=== PATIENT | male | born 1950 | race Caucasian/White ===

== ENCOUNTER 2020-08-08 00:40 | Outpatient (CLI) | payer MEDICARE, SELFPAY ==
[2020-08-08 17:41] LABS: SARS-CoV-2 RNA PCR Negative
== END 2020-08-08 00:41 | disposition home or self-care (01) ==
LOC: ANHCOVIDDT 00:41
PROVIDERS: Visit Provider Internal Medicine Gastroenterology
DX: Z01.812 Encounter for preprocedural laboratory examination (principal); Z20.828 Contact with and (suspected) exposure to other viral communicable diseases
CPT/HCPCS: 87635; C9803; U0003

== ENCOUNTER 2020-08-10 01:34 | Day surgery (SDC) | payer MEDICARE, SELFPAY ==
[2020-08-03 13:53] VITALS: BMI 40.1
[2020-08-10 07:00] VITALS: BP 130/59; PULSE 63; RESP 20; TEMP 36.2; O2SAT 98
[2020-08-10] MEDS: LACTATED RINGERS 1,000 ML 150 ML IV CONT (07:10)
[2020-08-10 07:18] LABS: Glucose Point of Care 98 (65-105)
--- NOTE | 2020-08-10 07:27 | PM.HPGS ---
History of Present Illness History of Present Illness Consent: Risks, benefits, and alternatives have been discussed and questions answered. Patient agrees to proceed with procedure. Chief complaint: Vomiting Narrative: Ronald Medellin is a 70 year old male with persistent retching, beginning 2 months ago. Pantoprazole BID has not helped. [facility] Social History Social History Smoking packs per day: 2.5 Smoking cigarettes per day: 50.0 Years smoked: 18 Smoking pack-years: 45.00 Smoking status: Former smoker Tobacco type: cigarettes Alcohol intake: current Substance use: current Substance use type: marijuana Last use: 08/09/2020 Spiritual care concerns: No Meds Home Medications and Allergies Home Medications Medication Instructions Recorded Confirmed Type aspirin [Adult Low Dose Aspirin] 81 mg PO DAILY 08/03/20 08/03/20 History atenolol 25 mg PO DAILY 08/03/20 08/03/20 History atorvastatin 40 mg PO HS 08/03/20 08/03/20 History biotin 1 tab-cap PO DAILY 08/03/20 08/03/20 History bupropion HCl 150 mg PO BID 08/03/20 08/03/20 History duloxetine 60 mg PO BID 08/03/20 08/03/20 History finasteride 5 mg PO DAILY 08/03/20 08/03/20 History insulin aspart U-100 [Novolog 8 unit SUBCUT AC 08/03/20 08/03/20 History Flexpen U-100 Insulin] insulin glargine [Lantus U-100 25 unit SUBCUT QPM 08/03/20 08/03/20 History Insulin] isosorbide mononitrate 60 mg PO DAILY 08/03/20 08/03/20 History levothyroxine 50 mcg PO DAILY 08/03/20 08/03/20 History losartan 50 mg PO DAILY 08/03/20 08/03/20 History metformin 1,000 mg PO BID 08/03/20 08/03/20 History nitroglycerin 0.4 mg SUBLINGUAL Q5M PRN 08/03/20 08/03/20 History omega-3 fatty acids [[place] 3 Fish 2,000 mg PO BID 08/03/20 08/03/20 History Oil] terazosin 5 mg PO HS 08/03/20 08/03/20 History tramadol 50 mg PO Q6H PRN 08/03/20 08/03/20 History Allergies Allergy/AdvReac Type Severity Reaction Status Date / Time niacin AdvReac Intermediate Other Verified 08/10/20 06:58 isosorbide dinitrate AdvReac Intermediate Headache Uncoded 08/10/20 06:58 Vital Signs Vital Signs - 24 hr 08/10/20 07:00 Temperature 36.2 C L Pulse Rate 63 Respiratory Rate 20 Blood Pressure 130/59 L Pulse Oximetry 98 Exam Const: General: alert Orientation/consciousness: patient oriented x3 Resp: Auscultation: clear to auscultation bilaterally Cardio: Rhythm: regular rhythm GI: GI Palp: Yes Soft to palpation and No Tenderness to palpation present (GI) Neuro: General: patient oriented x3 Assessment and Plan Assessment and plan (1) Vomiting: Code(s): R11.10 - Vomiting, unspecified Status: Acute Assessment and Plan: EGD with possible biopsy or dilatation or cautery.
--- NOTE | 2020-08-10 07:57 | WPDANESEPPF ---
Anes - Initial Pre Proc Eval Procedure: Operation Date: 08/10/20 08:00 Proposed Procedures p Esophagogastroduodenoscopy - Ron Barrett MD Date/Time: 08/10/20 07:57 Surgeon: Ron Barrett MD Pre Op Diagnosis: Vomiting Patient Data Age: 70 Gender: M Height: 5 ft 10 in Weight: 124 kg Last Vital Signs Temp 97.2 F L 08/10/20 07:00 Pulse 63 08/10/20 07:00 Resp 20 08/10/20 07:00 BP 130/59 L 08/10/20 07:00 Pulse Ox 98 08/10/20 07:00 Allergies Allergy/AdvReac Type Severity Reaction Status Date / Time niacin AdvReac Intermediate Other Verified 08/10/20 06:58 isosorbide dinitrate AdvReac Intermediate Headache Uncoded 08/10/20 06:58 Home Medications Medication Instructions Recorded Confirmed Type aspirin [Adult Low Dose Aspirin] 81 mg PO DAILY 08/03/20 08/03/20 History atenolol 25 mg PO DAILY 08/03/20 08/03/20 History atorvastatin 40 mg PO HS 08/03/20 08/03/20 History biotin 1 tab-cap PO DAILY 08/03/20 08/03/20 History bupropion HCl 150 mg PO BID 08/03/20 08/03/20 History duloxetine 60 mg PO BID 08/03/20 08/03/20 History finasteride 5 mg PO DAILY 08/03/20 08/03/20 History insulin aspart U-100 [Novolog 8 unit SUBCUT AC 08/03/20 08/03/20 History Flexpen U-100 Insulin] insulin glargine [Lantus U-100 25 unit SUBCUT QPM 08/03/20 08/03/20 History Insulin] isosorbide mononitrate 60 mg PO DAILY 08/03/20 08/03/20 History levothyroxine 50 mcg PO DAILY 08/03/20 08/03/20 History losartan 50 mg PO DAILY 08/03/20 08/03/20 History metformin 1,000 mg PO BID 08/03/20 08/03/20 History nitroglycerin 0.4 mg SUBLINGUAL Q5M PRN 08/03/20 08/03/20 History omega-3 fatty acids [[place] 3 Fish 2,000 mg PO BID 08/03/20 08/03/20 History Oil] terazosin 5 mg PO HS 08/03/20 08/03/20 History tramadol 50 mg PO Q6H PRN 08/03/20 08/03/20 History Laboratory Tests 08/10/20 07:16 POC Capillary Glucose 98 mg/dl mg/dl (65-105) Patient hx anesthesia problems: none Family hx anesthesia problems: none PMFSH Past Medical History Medical History (Updated 08/10/20 @ 07:57 by Bart Torrez MD) CAD (coronary artery disease) Hyperlipidemia Hypertension Morbid obesity MARLENY (obstructive sleep apnea) Surgical History Surgical History (Updated 08/10/20 @ 07:57 by Bart Torrez MD) S/P CABG x 4 Social History Social History Smoking packs per day: 2.5 Smoking cigarettes per day: 50.0 Years smoked: 18 Smoking pack-years: 45.00 Smoking status: Former smoker Tobacco type: cigarettes Alcohol intake: current Substance use: current Substance use type: marijuana Last use: 08/09/2020 Spiritual care concerns: No Anes - Eval Final PreProcedure Day of Procedure 08/10/20 07:57 Patient weight: morbidly obese Heart: regular rate and rhythm Lungs: clear to auscultation Airway: Mallampati scale class II Neurological: alert and oriented Last oral intake: >/= 8 hours ASA classification: IV Emergent: no Anesthetic plan: proceed Anesthesia type and monitoring: general GIVS and standard monitoring Informed Consent: The patient's anesthetic plan and its attendant risks and benefits were discussed with the patient/family/POA. Questions were solicited and answers provided to the satisfaction of the patient/family/POA.
[2020-08-10 08:29] VITALS: BP 118/64; PULSE 58; RESP 20; O2SAT 98
[2020-08-10 08:39] VITALS: BP 122/68; PULSE 55; RESP 17; O2SAT 98
[2020-08-10 08:49] VITALS: BP 120/64; PULSE 56; RESP 18; O2SAT 98
[2020-08-10 09:21] LABS: Glucose Point of Care 91 (65-105)
== END 2020-08-10 09:11 | disposition home or self-care (01) ==
PROVIDERS: Visit Provider Internal Medicine Gastroenterology
PROC: 0DJ08ZZ Inspection of Upper Intestinal Tract, Via Natural or Artificial Opening Endoscopic (ICD-10-PCS; CPT 43235; principal; 2020-08-10 08:00)
DX: K21.9 Gastro-esophageal reflux disease without esophagitis (principal); K29.70 Gastritis, unspecified, without bleeding; I10 Essential (primary) hypertension; E11.9 Type 2 diabetes mellitus without complications; I25.10 Atherosclerotic heart disease of native coronary artery without angina pectoris; G47.33 Obstructive sleep apnea (adult) (pediatric); E66.01 Morbid (severe) obesity due to excess calories; Z68.39 Body mass index [BMI] 39.0-39.9, adult; Z95.1 Presence of aortocoronary bypass graft; Z87.891 Personal history of nicotine dependence; F12.90 Cannabis use, unspecified, uncomplicated
CPT/HCPCS: 43235; J2001; J2704; J7120

== ENCOUNTER 2024-03-31 13:27 | Inpatient (IN) | payer MEDICARE, OTHER, SELFPAY ==
[2024-03-31] VITALS (21 sets, daily range): BP systolic 106–173; BP diastolic 84–101; PULSE 101–126; RESP 14–27; TEMP 36.1–37; O2SAT 98–100; BMI 27.6
--- NOTE | ~2024-03-31 | XR_ITS ---
EXAMINATION: XR chest 2V Exam Date/Time: 03/31/2024 15:42 CDT HISTORY: confussion, ELEVATED WHITE BLOOD CELL COUNT Comparison: None. RESULT: Lines, tubes, and devices: None. Lungs and pleura: Senescent/emphysematous change. Bibasilar scar/atelectasis. Cardiomediastinal silhouette: Stable. Other: No acute osseous or upper abdominal finding. IMPRESSION: No acute cardiopulmonary process. Reviewed, dictated and finalized at location K.
--- NOTE | ~2024-03-31 | XR_ITS ---
Portable chest x-ray Comparison: 03/31/2024 Clinical History: Line placed Findings: Right IJ line in satisfactory position. There is hazy left basilar airspace disease. Right lung clear. No pneumothorax. Cardiomediastinal silhouette is stable. Bones and soft tissues are unr emarkable. Impression: Right IJ line in place. Hazy left basilar airspace disease. Correlate for pneumonia. Reviewed, dictated and finalized at location . Impression: Right IJ line in place. Hazy left basilar airspace disease. Correlate for pneumonia.
--- NOTE | ~2024-03-31 | CT_ITS ---
EXAMINATION: CT abdomen pelvis w con DATE: 03/31/2024 14:40 INDICATION: RLQ pain TECHNIQUE: Computed tomography (CT) of the abdomen and pelvis was performed with 100 mL Omnipaque-350 intravenous contrast. Automated exposure control and iterative reconstruction technique were employe d. The dose-length product was 913.67 mGy-cm. COMPARISON: None. FINDINGS: Beam hardening artifact from arm position in the upper abdomen. Lower thorax: Considerable motion artifact in the lungs. Interstitial or emphysematous change. Liver: Nodular liver border Biliary/Gallbladder: Gallbladder is normal. No bile duct dilation. Pancreas: No mass or duct dilation. Spleen: Normal. Adrenals:No mass. Kidneys: No suspicious mass, obstructing stone, or hydronephrosis multiple simple cysts and hypodensi ties that are too small to characterize but also likely represent cysts. GI tract: Small hiatal hernia. Moderate distal esophageal and gastric wall edema No small or large micheline wel dilation. Air and fluid-filled appendix measuring up to 7 mm, no inflammatory changes, this is li ezequiel a chronic finding. Diverticulosis without diverticulitis. Mesentery/Peritoneum: No ascites, mass, or free air. Retroperitoneum: No mass. Atherosclerotic abdominal aortic and/or arterial calcifications. Fusiform d ilation of the infrarenal abdominal aorta up to 3.8 cm. The right common iliac artery measures up to 2.0 cm. The left common iliac artery measures 1.5 cm. Pelvis: Pelvic organs are within normal limits. Soft Tissues: Thickening of the right rectus sheath and muscle with ill-defined internal slight hyper density measuring up proximally 2.8 x 6.2 cm. Bones: No acute osseous finding. Partially visualized left hip with posterior hardware. IMPRESSION: Moderate esophagitis/gastritis. Possible cirrhotic change. Fusiform infrarenal abdominal aortic aneurysm measuring up to 3.8 cm. Right common iliac artery ectas ia. Right rectus sheath hematoma. Reviewed, dictated and finalized at location K. IMPRESSION: Moderate esophagitis/gastritis. Possible cirrhotic change. Fusiform infrarenal abdominal aortic aneurysm measuring up to 3.8 cm. Right com mon iliac artery ectasia. Right rectus sheath hematoma.
--- NOTE | ~2024-03-31 | CT_ITS ---
CT brain wo con Ordering provider: Haider Pacheco MD History: 73 years Male with . AMS . Comparison: None. Technique: CT of the head without contrast. Radiation reduction technique utilized. FINDINGS: BRAIN PARENCHYMA AND CSF SPACES: No midline shift, mass effect or hemorrhage. The brain parenchyma a nd CSF spaces are otherwise normal. VISUALIZED PARANASAL SINUSES: Well aerated. MASTOIDS: Well aerated. BONES: The bones appear intact. SOFT TISSUES: Visualized nasopharynx is normal. Superficial soft tissues are normal. IMPRESSION: No acute intracranial findings. Reviewed, dictated and finalized at location A.
[2024-03-31 13:41] LABS: Basophils Absolute Auto 0.1 K/mm3 (0.0-0.1); Basophils Percent Auto 0.3 % (0.2-1.2); Eosinophils Percent Auto 0.1 % (0-4.4); Hematocrit 43.1 % (42.0-52.0); Hemoglobin 14.2 g/dL (14.0-18.0); Immature Granulocyte Absolute 0.14 K/mm3 (0.00-0.031); Immature Granulocyte Percent A 0.6 % (0-0.5); Lymphocytes Absolute Auto 3.69 K/mm3 (0.9-3.2); Lymphocytes Percent Auto 16.6 % (18.3-44.2); Mean Corpuscular HGB Conc 32.9 g/dl (32-36); Mean Corpuscular Hemoglobin 28.5 pg (26-34); Mean Corpuscular Volume 86.4 fl (80-100); Mean Platelet Volume 9.1 fl (7.4-10.4); Monocytes Absolute Auto 2.3 K/mm3 (0.1-0.6); Monocytes Percent Auto 10.5 % (2.6-8.5); Neutrophils Percent Auto 71.9 % (45.5-73.1); Platelet Count Result 273 k/mm3 (150-375); Red Blood Count 4.99 M/mm3 (4.6-6.20); Red Cell Distribution Width 13.7 % (11.5-14.5); White Blood Count 22.2 K/mm3 (4.5-10.0)
[2024-03-31 13:52] LABS: Alanine Aminotransferase 24 U/L (6-50); Albumin Level 4.7 g/dL (3.5-5.1); Alkaline Phosphatase 161 U/L (38-126); Anion Gap 11 mmol/L (4-12); Aspartate Amino Transferase 129 U/L (17-59); Blood Urea Nitrogen 43 mg/dL (9-20); Calcium 10.4 mg/dL (8.4-10.2); Carbon Dioxide 26 mmol/L (22-30); Chloride 103 mmol/L (98-107); Estimated CRCL calculation 38 ml/min; Estimated Glomerular Filt Rate 42; Glucose 145 mg/dL (65-110); Lipase 75 U/L (23-300); Potassium 4.4 mmol/L (3.4-5.0); Sodium 140 mmol/L (137-145)
--- NOTE | 2024-03-31 14:18 | ED.GENADULT ---
HPI - General Adult General Chief complaint: Nausea/Vomiting/Diarrhea Stated complaint: n/v x 4, confusion Time Seen by Provider: 03/31/24 13:43 History of Present Illness HPI narrative: 73 old male presents to the emergency department for evaluation for right lower quadrant abdominal pain. Family states patient has also been having episodes of increased confusion over the last few days, family stated that the episode confusion was the patient was unable to assist with selling computer questions which she is usually very adapted helping with. Patient denies any current nausea or medication for pain control but patient does complain of some right lower quadrant pain. Patient states he did have a fall from bed approximately a month ago but denies any recent falls or injuries. Related Data Home Medications Medication Instructions Recorded Confirmed aspirin 81 mg tablet 81 mg PO DAILY 08/03/20 08/03/20 atenolol 50 mg tablet 25 mg PO DAILY 08/03/20 08/03/20 atorvastatin 80 mg tablet 40 mg PO HS 08/03/20 08/03/20 biotin 1 tab-cap PO DAILY 08/03/20 08/03/20 bupropion HCl 150 mg tablet,12 hr 150 mg PO BID 08/03/20 08/03/20 sustained-release duloxetine 60 mg capsule,delayed 60 mg PO BID 08/03/20 08/03/20 release finasteride 5 mg tablet 5 mg PO DAILY 08/03/20 08/03/20 insulin aspart U-100 100 unit/mL 8 unit subcut AC 08/03/20 08/03/20 (3 mL) subcutaneous pen (Novolog FlexPen U-100 Insulin aspart) insulin glargine 100 unit/mL 25 unit subcut QPM 08/03/20 08/03/20 subcutaneous solution (Lantus U-100 Insulin) isosorbide mononitrate 60 mg 60 mg PO DAILY 08/03/20 08/03/20 tablet,extended release 24 hr levothyroxine 50 mcg tablet 50 mcg PO DAILY 08/03/20 08/03/20 losartan 100 mg tablet 50 mg PO DAILY 08/03/20 08/03/20 metformin 1,000 mg tablet 1,000 mg PO BID 08/03/20 08/03/20 nitroglycerin 0.4 mg sublingual 0.4 mg sublingual Q5M PRN Chest 08/03/20 08/03/20 tablet Pain omega-3 fatty acids 2,000 mg PO BID 08/03/20 08/03/20 terazosin 5 mg tablet 5 mg PO HS 08/03/20 08/03/20 tramadol 50 mg tablet 50 mg PO Q6H PRN Pain 08/03/20 08/03/20 Allergies Allergy/AdvReac Type Severity Reaction Status Date / Time niacin AdvReac Intermediate Other Verified 08/10/20 06:58 isosorbide dinitrate AdvReac Intermediate Headache Uncoded 08/10/20 06:58 Review of Systems Review of Systems: All systems reviewed & are unremarkable except as noted in HPI and below PMFSH Past Medical History Medical History (Updated 03/31/24 @ 21:01 by Kia Stevens DO) BPH (benign prostatic hyperplasia) Presumed as the patient is on terazosin and finasteride CAD (coronary artery disease) Carpal tunnel syndrome, bilateral CKD (chronic kidney disease) stage 3, GFR 30-59 ml/min Hyperlipidemia Hypertension Hypothyroidism Morbid obesity Patient used to weigh 127 kg in 2019 down to 87 kg current 03/2024 MARLENY (obstructive sleep apnea) Noncompliant with CPAP Surgical History Surgical History S/P CABG x 4 Family History Family History (Updated 03/31/24 @ 20:35 by Kia Stevens DO) Daughter Morbid obesity Mother Uterine cancer Father Colon cancer Social History Social History (Updated 03/31/24 @ 20:54 by Kia Stevens DO) Social History: Patient lives with his of approximately 4 years. He used to smoke 2.5 packs of cigarettes per day from the time he was teenager until 2019. He denies any history of heavy alcohol use. He does use marijuana on a daily basis. Code status: Full code Surrogate decision maker: Claudia () Smoking packs per day: 2.5 Smoking cigarettes per day: 50.0 Years smoked: 50 Smoking pack-years: 125.00 Smoking status: Former smoker Tobacco type: cigarettes Alcohol intake: current Substance use: current Substance use type: marijuana Last use: 08/09/2020 Spiritual care concerns: No Exam Narrative: APPEARA
[2024-03-31 15:58] LABS: Appearance Urine Clear (Clear); Bacteria Urine None Seen /hpf; Bilirubin Urine Negative (Negative); Blood Urine Trace (Negative); Color Urine Yellow (Yellow); Glucose Urine UA Negative (Negative); Ketones Urine 1+ mg/dL (Negative); Leukocyte Esterase Ur Negative LEU/UL (Negative); Need Manual Microscopic Reviewed; Nitrate Urine Negative (Negative); Protein Urine 1+ mg/dL (Negative); RBC Urine 0-2 /hpf (0-2); Squamous Epithelial Cell Urine Few /hpf (Few); Urobilinogen Urine 0.2 mg/dL (<2.0); WBC Urine 0-5 /hpf (0-3)
[2024-03-31 16:05] LABS: Specific Grav Ur 1.015 (1.001-1.035)
[2024-03-31 16:08] LABS: Add Urine Microscopic? YES
[2024-03-31 16:36] LABS: Influenza A QL RT-PCR Negative (Negative); Influenza B QL RT-PCR Negative (Negative); RSV RNA, RT-PCR Negative (Negative); SARS-CoV-2 RNA PCR Negative (Negative)
[2024-03-31 17:06] LABS: Glucose Point of Care 127 mg/dl (65-105)
[2024-03-31] MEDS: SODIUM CHLORIDE 0.9% IV 1,000 ML 999 ML IV CONT (17:07)
[2024-03-31] MEDS: MORPHINE SULFATE (*CRX) 2 MG/ML INJ IV PUSH ×2 (17:07→21:53)
--- NOTE | 2024-03-31 17:45 | ECG_ITS ---
Test Date: 2024-03-31 18:24:08 Measurements Intervals [place] Rate: 102 P: 58 [place]: 210 QRS: 37 QRSD: 94 T: 44 QT: 348 QTc: 455 Interpretive Statements SINUS TACHYCARDIA WITH FIRST DEGREE AV BLOCK No previous ECG available for comparison Electronically Signed On 04-01-2024 11:36:05 CDT by Barrett Wilcox M.D.
[2024-03-31 18:56] LABS: CRP 0.9 mg/dL (<1.0)
[2024-03-31 19:18] LABS: Erythrocyte Sedimentation Rate 15 mm/hr (0-20)
--- NOTE | 2024-03-31 19:27 | ADMGEN ---
This patient, Ronald Medellin, was admitted to IMU Room 231-01. Patient/family oriented to hospital policies and general routines including ID bracelet, bed and alarms, visiting hours, pain management, procedures, bathroom and other care routines, personal items, smoking policy, room service/diet, and visiting hours. Information on how to activate the Rapid Response Team has been discussed. Patient/Family are encouraged to report perceived risks to care and to ask questions if they do not understand what they are told or what they should do.
[2024-03-31 19:50] LABS: Procalcitonin 0.1 ng/mL
--- NOTE | 2024-03-31 19:55 | PM.IMHP ---
H&P: HPI History of Present Illness Date/Time: 03/31/24 19:55 Chief Complaint: Abdominal pain Narrative: 73-year-old male with a past medical history of coronary artery disease, essential hypertension, obstructive sleep, chronic kidney disease, diabetes mellitus, hypothyroidism and other illnesses who presented to the ER from home with right-sided abdominal pain and confusion. The patient is alert orient to person, place and white came to the ER. However he is confused as to the month in time. He gave me permission to discuss his care with his daughter and called her on the phone she informs me that the patient has been having vomiting for about 3 or 4 days. reported that the patient has not eaten anything in 3 days. The patient started using marijuana daily over the last year to and has had significant weight loss since then. Marijuana seems to actually adversely affect his appetite. He was having some cyclic vomiting with the marijuana when he 1st started taking it but has not been having vomiting associated with marijuana since then. The patient reports that his emesis is small amounts of clear material in usually occurs in the middle of the night. He denies any associated heartburn symptoms. He and a does report chronic difficulty with emptying his bladder and feels like he has not emptied his bladder today. He was able to provide a urine specimen in the ER. He did report some lower abdominal discomfort with palpation and subsequently a CT of the abdomen pelvis was obtained which demonstrated moderate esophagitis/gastritis, possible cirrhotic changes to the liver, fusiform infrarenal abdominal aortic aneurysm measuring 3.8 cm and right rectus sheath hematoma measuring 2.8 x 6.2 cm. He was evidently reporting pain in a right lower abdomen on initial presentation but the time of my evaluation actually reports pain in the left lower abdomen. He reports having normal bowel movements. He denies any chest pain or shortness of breath. He denies any recent ill contacts. In the ER labs demonstrated white count of 22 and he was tachycardic with a heart rate in the 1 teens to 120s. He was also intermittently tachypneic. His daughter reports the patient does occasionally fall out of bed but both he and his deny any recent falls within the last month. He denies any head injury. He had a CT of the head in the ER which was negative for acute process. He denies any dizziness or lightheadedness. He has not had any double vision and extraocular movements are intact without any dysconjugate gaze. Patient does have elevated AST on as labs and CT demonstrates possible cirrhotic changes. Family denies any known history of cirrhosis. Daughter reports that the patient does have difficulty with urination and may have a history of retention. She reports that the patient used to be morbidly obese but since he started smoking marijuana he only eats once a day and it is usually junk food. Since he started doing this he has significant weight loss over the last 2 years. The patient's daughter reports that the patient may occasionally be forgetful but does not usually have overt confusion. Patient usually receives his medical care at the [facility]. Review of Systems Review of Systems: 12 systems were reviewed with pertinent positives and negatives per HPI. Except as documented in the HPI, all other systems were reviewed and are negative. However review of systems limited due to patient's confusion. [facility] Past Medical History Medical History (Updated 03/31/24 @ 21:01 by Kia Stevens DO) BPH (benign prostatic hyperplasia) Presumed as the patient is on terazosin and finasteride CAD (coronary artery disease) Carpal tunnel syndrome, bilateral CKD (chronic kidney disease) stage 3, GFR 30-59 ml/min Hyperlipidemia Hypertension Hypothyroidism Morbid obesity Patient used to weigh 127 kg in 2019 down to 87 kg current 03/2024 MARLENY (obstructive sleep apnea
[2024-03-31 20:24] LABS: Glucose Point of Care 122 mg/dl (65-105)
[2024-03-31] MEDS: SODIUM CHLORIDE 0.9% IV 1,000 ML 125 ML IV CONT (21:51)
[2024-03-31] MEDS: PANTOPRAZOLE 40 MG TABLET PO (21:52)
[2024-03-31 22:09] LABS: Glucose Point of Care 128 mg/dl (65-105)
[2024-04-01] VITALS (65 sets, daily range): BP systolic 50–166; BP diastolic 30–90; PULSE 57–104; RESP 11–21; TEMP 35.6–37.1; O2SAT 98–100
--- NOTE | 2024-04-01 | ECHO_ITS ---
Patient Info Name: Ronald Medellin Age: 73 years : 1950 Gender: Male Ht: 70 in Wt: 197 lbs BSA: 2.12 m2 HR: 75 bpm BP: 95 / 61 mmHg Heart Rhythm: Sinus Rhythm Technical Quality: Fair Exam Date: 04/01/2024 1:17 PM Exam Location: Echo Lab Patient Status: Inpatient Admit Date: 04/01/2024 Staff Ordering Physician: Serafin Schmidt MD Rhinologist: Laura Agee RDCS Attending Provider: Kia Stevens DO Referring Physician: Brayan PENG; Exam Type: CA echo dop color flow w con Study Info Indications - evaluate cardiac and valvular function, shock Complete two-dimensional, color flow and Doppler transthoracic echocardiogram is performed with contrast to opacify the left ventricle and to improve the deliniation of the left ventricle endocardial borders. Contrast/Agitated Saline Contrast/Ag. Saline: Definity Amount: 2.00 ml Administered By: Laura Agee RDCS Existing IV Access: Yes IV Access Condition: patent with no signs of infiltration Summary 1. Left ventricular chamber dimension is normal. 2. Left ventricular systolic function is normal, estimated at >70%. 3. There is mildly increased left ventricular wall thickness. 4. The left ventricular diastolic function is grade I diastolic dysfunction. 5. Right ventricular systolic function is normal. 6. Right atrial chamber dimension is moderately enlarged. 7. Linear artifact in the right atrium suggestive of catheter(s), pacemaker lead(s), or ICD lead(s). 8. No significant valvular disease. 9. Normal inferior vena cava with >50% collapse upon inspiration consistent with normal right atrial pressure, 3 mmHg. 10. There is small anterior pericardial effusion. Left Ventricle Left ventricular chamber dimension is normal. Left ventricular systolic function is normal, estimated at >70%. There is mildly increased left ventricular wall thickness. The left ventricular diastolic function is grade I diastolic dysfunction. Right Ventricle Right ventricular chamber dimension is normal. Right ventricular systolic function is normal. Left Atria Left atrial chamber dimension is normal. Right Atria Linear artifact in the right atrium suggestive of catheter(s), pacemaker lead(s), or ICD lead(s). Right atrial chamber dimension is moderately enlarged. Atrial Septum Intact interatrial septum visualized by color flow imaging. Aortic Valve The aortic valve is trileaflet. There is no aortic valve stenosis. There is no aortic valve regurgitation. There is mild aortic valve calcification. Pulmonic Valve The pulmonic valve is not well visualized. Mitral Valve There is trace mitral valve regurgitation. Tricuspid Valve There is trace tricuspid valve regurgitation. Pericardium/Pleural There is small anterior pericardial effusion. Inferior Vena Cava Normal inferior vena cava with >50% collapse upon inspiration consistent with normal right atrial pressure, 3 mmHg. Aorta The aortic root size at the sinus of Valsalva is normal. Left Ventricular Outflow Tract Name Value Normal LVOT 2D LVOT Diameter 1.95 cm LVOT Doppler LVOT Peak Gradient 6 mmHg LVOT Mean Gradient
[2024-04-01 04:28] LABS: Basophils Absolute Auto 0.1 K/mm3 (0.0-0.1); Basophils Percent Auto 0.4 % (0.2-1.2); Eosinophils Absolute Auto 0.1 K/mm3 (0-0.3); Eosinophils Percent Auto 0.4 % (0-4.4); Hematocrit 36.8 % (42.0-52.0); Immature Granulocyte Absolute 0.06 K/mm3 (0.00-0.031); Immature Granulocyte Percent A 0.4 % (0-0.5); Lymphocytes Absolute Auto 2.94 K/mm3 (0.9-3.2); Lymphocytes Percent Auto 19.5 % (18.3-44.2); Mean Corpuscular HGB Conc 32.6 g/dl (32-36); Mean Corpuscular Hemoglobin 28.2 pg (26-34); Mean Corpuscular Volume 86.6 fl (80-100); Mean Platelet Volume 9.2 fl (7.4-10.4); Monocytes Absolute Auto 1.7 K/mm3 (0.1-0.6); Monocytes Percent Auto 11.4 % (2.6-8.5); Neutrophils Absolute Auto 10.2 K/mm3 (1.3-6.7); Neutrophils Percent Auto 67.9 % (45.5-73.1); Platelet Count Result 199 k/mm3 (150-375); Red Blood Count 4.25 M/mm3 (4.6-6.20); Red Cell Distribution Width 13.8 % (11.5-14.5)
[2024-04-01 04:44] LABS: Ammonia < 9 umol/L (9-30)
[2024-04-01 04:47] LABS: Alanine Aminotransferase 19 U/L (6-50); Albumin Level 3.8 g/dL (3.5-5.1); Alkaline Phosphatase 134 U/L (38-126); Anion Gap 8 mmol/L (4-12); Aspartate Amino Transferase 72 U/L (17-59); Bilirubin,Total 0.9 mg/dL (0.2-1.3); Blood Urea Nitrogen 44 mg/dL (9-20); Calcium 8.7 mg/dL (8.4-10.2); Carbon Dioxide 25 mmol/L (22-30); Chloride 106 mmol/L (98-107); Estimated CRCL calculation 43 ml/min; Estimated Glomerular Filt Rate 50; Glucose 100 mg/dL (65-110); Potassium 4.3 mmol/L (3.4-5.0); Sodium 139 mmol/L (137-145)
[2024-04-01] MEDS: atenoloL 12.5 MG TABLET PO (05:50)
[2024-04-01] MEDS: lisinopriL 5 MG TABLET PO (05:51)
[2024-04-01] MEDS: LEVOTHYROXINE SODIUM 50 MCG TABLET PO (05:52)
[2024-04-01 05:56] LABS: Folic Acid 8.8 ng/mL (2.76->20); Vitamin B12 > 1000.0 pg/mL (239-931)
[2024-04-01 06:03] LABS: Hepatitis B Surface Antigen Negative (Negative)
[2024-04-01 06:09] LABS: HAV RESULT Negative (Negative); Hepatitis B Core IgM Result Negative (Negative)
[2024-04-01 06:21] LABS: Hepatitis C Virus Antibody Negative (Negative)
[2024-04-01] MEDS: SODIUM CHLORIDE 0.9% IV 1,000 ML 125 ML IV CONT (06:21)
[2024-04-01 08:09] LABS: Glucose Point of Care 114 mg/dl (65-105)
[2024-04-01] MEDS: buPROPion HCL SR (12 HR) 150 MG TAB PO ×2 (08:54→20:29)
[2024-04-01] MEDS: OMEGA 3 POLYUNSAT FATTY ACIDS 1 GM CAP 2 GM PO ×2 (08:54→18:01)
[2024-04-01] MEDS: ISOSORBIDE MONONITRATE 60 MG TAB.ER.24H PO (08:55)
[2024-04-01] MEDS: MIRABEGRON 50 MG ER TABLET PO (08:55)
[2024-04-01] MEDS: PANTOPRAZOLE 40 MG TABLET PO ×2 (08:55→20:29)
[2024-04-01] MEDS: SODIUM BICARBONATE TAB 650 MG TABLET PO (08:55)
[2024-04-01] MEDS: ASPIRIN 81 MG ENTERIC TABLET PO (08:55)
[2024-04-01] MEDS: HYDROXYCHLOROQUINE SULFATE 200 MG TABLET PO ×2 (08:55→18:01)
[2024-04-01] MEDS: FINASTERIDE 5 MG TABLET PO (08:56)
[2024-04-01] MEDS: DULoxetine HCL 60 MG CAPSULE.DR PO ×2 (08:57→18:01)
[2024-04-01] MEDS: TERAZOSIN HCL 5 MG CAPSULE PO (08:57)
[2024-04-01] MEDS: hydrOXYzine HCL 10 MG TABLET PO ×3 (08:58→18:01)
[2024-04-01] MEDS: MORPHINE SULFATE (*CRX) 2 MG/ML INJ IV PUSH (09:01)
--- NOTE | 2024-04-01 10:15 | PC.NURSE ---
RN and PCT to bedside. Patient diaphoretic, linen on bed soaked, able to verbalize his location when asked, intermittently focuses on staff. Vital signs taken, Dr. Bolton and forensics analyst to bedside. IV boluses initiated, ICU MD to bedside, patient to be transferred to ICU.
--- NOTE | 2024-04-01 10:46 | ECG_ITS ---
Test Date: 2024-04-01 10:44:17 Measurements Intervals [place] Rate: 67 P: 73 [place]: 208 QRS: 65 QRSD: 95 T: 39 QT: 486 QTc: 515 Interpretive Statements SINUS RHYTHM WITH FIRST DEGREE AV BLOCK POSSIBLE INFERIOR MYOCARDIAL INFARCTION [35 ms Q WAVE IN II/aVF], PROBABLY OLD Compared to ECG 03/31/2024 18:24:08 NO SIGNIFICANT CHANGES Electronically Signed On 04-01-2024 11:40:11 CDT by Barrett Wilcox M.D.
[2024-04-01] MEDS: NOREPINEPHRINE 8 MG/D5W 250 ML 8 MG/250 ML BAG 9.38 MG IV CONT (10:51)
--- NOTE | 2024-04-01 10:55 | PC.NURSE ---
This patient, Ronald Medellin, was transferred to ICU 6 on 04/01/24 at 1040. Personal belongings sent with patient. Report given to CORINNE Huang. Appropriate documentation sent with patient.
[2024-04-01] MEDS: SODIUM CHLORIDE 0.9% IV 1,000 ML 999 ML IV CONT ×2 (11:05→11:26)
[2024-04-01 11:09] LABS: Glucose Point of Care 101 mg/dl (65-105)
--- NOTE | 2024-04-01 11:19 | WPDPROCEDUR ---
Procedures Central Line Placement Left IJ: Central Line Date: 04/01/24 Central Line Time: 11:10 Discussed w/ the patient/family/POA,the placement of a central venous catheter, including its clinical necessity/indication & associated potential risks, benifits and alternatives.: Yes The patient/family/POA understand(s) and acknowledge(s) the need to proceed with central venous catheter insertion as an important element of the patient's clinical management.: Yes Consent: I have discussed with the patient and/or surrogate, the non-emergent placement of a central venous catheter, including its clinical necessity/indication and associated potential risks and complications. The patient and/or surrogate understand(s) and acknowledge(s) the need to proceed with central venous catheter insertion as an important element of the patient's clinical management. Time Out Performed: Yes Patient Position: supine Patient placed on monitor/pulse ox: Yes Provider Prep: mask, sterile gown, sterile gloves, Max. sterile barrier precautions, cap and hand hygiene with conventional soap/water or alcohol based hand rub Central line prep: 2% Chlorhexidine scrub Local anesthesia used: lidocaine 1% Amount of anesthesia used (ml): 3 Central line lumen inserted: triple [place]: 7 Length (cm): 16 Depth of Insertion (cm): 16 Post Procedure: sutured in place, good blood return, all ports aspirated, flushed, capped, transparent dressing, hemostatic product, antimicrobial product, securement product and aseptic technique maintained throughout procedure Post procedure x-ray: tip of catheter in good position and no pneumothorax seen Patient tolerated procedure: well Complications: none
[2024-04-01] MEDS: SODIUM CHLORIDE 0.9% IV 1,000 ML 100 ML IV CONT ×2 (11:30→20:31)
[2024-04-01 12:21] LABS: Glucose Point of Care 155 mg/dl (65-105)
--- NOTE | 2024-04-01 12:24 | WPDCNINT ---
Assessment and Plan Assessment and plan (1) Shock: Code(s): R57.9 - Shock, unspecified Status: Acute Assessment and Plan: 04/01/2024: Was called in the intermediate Unit patient being hypotensive with systolic blood pressure in the 50s, -possible etiology hypovolemia as he has not been eating and drinking well for the last few days, right rectus sheath hematoma, blood pressure medications as he received atenolol, lisinopril and Imdur early this morning -2 L IV fluid bolus was given -left IJ central line was inserted and patient started on Levophed -lactic acid has been ordered -04/01: Blood cultures have already been obtained -04/01: Will order urine culture -calcitonin admission is negative -lactic acid is normal -will obtain troponin levels -no obvious source of infection, will hold antibiotics for now (2) Acute confusion: Code(s): R41.0 - Disorientation, unspecified Status: Acute Assessment and Plan: Confusion which improved the patient is alert and oriented x3 at this time, continue to monitor (3) Rectus sheath hematoma: Qualifiers: Encounter type: initial encounter Qualified Code(s): S30.1XXA - Contusion of abdominal wall, initial encounter Code(s): S30.1XXA - Contusion of abdominal wall, initial encounter Status: Acute Assessment and Plan: Right Rectus sheath hematoma as seen on CT of the abdomen and pelvis -surgery has evaluated the patient, will continue to monitor -monitor hemoglobin levels 03/31: CT scan of the abdomen and pelvis with contrast IMPRESSION: Moderate esophagitis/gastritis. Possible cirrhotic change. Fusiform infrarenal abdominal aortic aneurysm measuring up to 3.8 cm. Right common iliac artery ectasia. Right rectus sheath hematoma. (4) Esophagitis with gastritis: Code(s): K29.70 - Gastritis, unspecified, without bleeding; K20.90 - Esophagitis, unspecified without bleeding Status: Acute Assessment and Plan: Continue Protonix 12 hours (5) Abdominal pain: Qualifiers: Abdominal location: lower abdomen, unspecified Qualified Code(s): R10.30 - Lower abdominal pain, unspecified Code(s): R10.9 - Unspecified abdominal pain Status: Acute Assessment and Plan: Patient initially on admission complaining of right-sided abdominal pain which is likely due to the right rectus sheath hematoma -patient also is complaining of left-sided lower abdominal pain -will continue to monitor for now (6) Elevated ALT measurement: Code(s): R74.01 - Elevation of levels of liver transaminase levels Status: Acute Assessment and Plan: Elevated ALT levels could be related to hypoperfusion -CT abdomen and pelvis showed possible cirrhotic changes -hepatitis panel was negative, -will continue to monitor Plan DVT prophylaxis: SCDs Stress ulcer prophylaxis: Protonix Nutrition: Diabetic diet Code Status: Full code Critical Care Time Spent: 49 minutes Discussed with patient's daughter and spouse and updated them with patient's condition and plan of care. I answered all questions Due to a high probability of clinically significant, life threatening deterioration, the patient required my highest level of preparedness to intervene emergently and I personally spent this critical care time directly and personally managing the patient. This critical care time included obtaining a history; examining the patient; pulse oximetry; ordering and review of studies; arranging urgent treatment with development of a management plan; evaluation of patient's response to treatment; frequent reassessment; and discussions with other providers. It was exclusive of separately billable procedures and treating other patients and teaching time. Please see Assessment and Plan section and the rest of the note for further information on patient assessment and treatment This dictation may have been done utilizing a voice r
[2024-04-01 12:35] LABS: Lactic Acid Reflex 1.4 mmol/L (0.7-2.0)
[2024-04-01 12:51] LABS: Troponin I 0.067 ng/mL (0.000-0.034)
[2024-04-01] MEDS: CENTRAL LINE FLUSH 10 ML IV PUSH ×2 (13:15→20:31)
--- NOTE | 2024-04-01 13:45 | PM.CNGS ---
Assessment and Plan Assessment and plan (1) Rectus sheath hematoma: Qualifiers: Encounter type: initial encounter Qualified Code(s): S30.1XXA - Contusion of abdominal wall, initial encounter Code(s): S30.1XXA - Contusion of abdominal wall, initial encounter Status: Acute Assessment and Plan: Right rectus sheath hematoma seen on CT measuring 2.8 x 6.2 cm. No known recent falls, but he had multiple falls about 1 month ago. He is not currently on any anticoagulation, but his 81 mg aspirin was held. Unable to tell if this is an acute finding or if this is more of a chronic finding. He is afebrile and there is no significant inflammation surrounding the hematoma on CT. More of his abdominal pain and tenderness is more on the left rather than the right near the hematoma. Hemoglobin did drop slightly from 14 to 12, but this is likely dilutional given all of the IV fluids he has received. No evidence of active bleeding or enlarging hematoma at this time. We would recommend to continue to monitor this for now. Trend his labs and repeat an H/H again tomorrow. No indication for any surgical management at this time. (2) Shock: Code(s): R57.9 - Shock, unspecified Status: Acute Assessment and Plan: Patient with tachycardia on admission, leukocytosis, and developed hypotension after admission. Could be hypovolemia. He has received a total of 3 liters of IV fluids and is now on maintenance fluids. Currently on vasopressors. Lactic acid normal. Blood cx ordered. No obvious evidence of an infection, therefore he is not currently on any antibiotics. WBC down today to 15,000. Continue critical care management and monitor. (3) Acute confusion: Code(s): R41.0 - Disorientation, unspecified Status: Acute Assessment and Plan: Improving. (4) Esophagitis with gastritis: Code(s): K29.70 - Gastritis, unspecified, without bleeding; K20.90 - Esophagitis, unspecified without bleeding Status: Acute Assessment and Plan: Noted on CT. Has had recent nausea and vomiting x 3-4 days. Continue PPI. (5) Elevated ALT measurement: Code(s): R74.01 - Elevation of levels of liver transaminase levels Status: Acute Assessment and Plan: Could be related to hypoperfusion but CT also showed possible cirrhotic changes of the liver. Hepatic panel ordered. Plan I have discussed the patient's case and plan of care with Dr. Navarrete. History of Present Illness Consult details Consult date: 04/01/24 Reason for consult: other (Rectus sheath hematoma) Requesting physician: Slime Bolton MD Narrative: This is a 73-year-old man with a past medical history of BPH, coronary artery disease, CABG x 4, CKD stage 3, hypertension, and multiple other medical problems, who presented to the ED on 03/31/2024 with complaints of nausea, vomiting, diarrhea, and confusion over the past few days. In the ER, he also mentions some right lower quadrant abdominal pain. His reports this had been mentioned at home a few times recently. Per family, the patient has had multiple falls about a month ago, but no recent falls in the past few weeks. In the ED, he was afebrile with tachycardia. [place] [address], hemoglobin 14.2. ESR, procalcitonin, and CRP were normal. Creatinine 1.6. UA negative for UTI. Chest x-ray negative. CT scan of the abdomen and pelvis showed a right rectus sheath hematoma measuring 6 x 2 cm. Also showed 3.8 cm infrarenal AAA, possible cirrhotic changes of the liver, and moderate esophagitis/gastritis. CT brain negative for any acute process. He was admitted to the IMU and became hypotensive this morning. He was transferred to ICU and has a central line placed and started on levophed infusion. He is alert and oriented x 3. We were consulted for the rectus sheath hematoma. He is complaining of LLQ abdominal pain at this time. No other specific complaints. He denies any tra
[2024-04-01] MEDS: PERFLUTREN LIPID MICROSPHERES 1.5 ML VIAL DILUTED TO 10 ML TOTAL VOLUME IV PUSH (14:00)
--- NOTE | 2024-04-01 14:32 | IVDEFINITY ---
Prior to administration of IV Definity the patient was educated on the risks and benefits of the imaging enhancing agent including potential adverse side effects. The patient verbalized understanding. Allergies were verified. No exclusion criteria were identified and at least one of the following inclusion criteria were met: 1) physician request, 2) patient technically difficult to image (per the [place] [employer] guidelines of two or more segments not discernable within the apical view), or 3) questionable left ventricular function. ?
--- NOTE | 2024-04-01 14:39 | PM.IMPN ---
Progress Note: A&P Assessment and Plan (1) Orthostatic hypotension: Code(s): I95.1 - Orthostatic hypotension Status: Acute (2) Difficulty urinating: Code(s): R39.198 - Other difficulties with micturition Status: Acute (3) SIRS (systemic inflammatory response syndrome): Code(s): R65.10 - Systemic inflammatory response syndrome (SIRS) of non-infectious origin without acute organ dysfunction Status: Acute (4) Rectus sheath hematoma: Qualifiers: Encounter type: initial encounter Qualified Code(s): S30.1XXA - Contusion of abdominal wall, initial encounter Code(s): S30.1XXA - Contusion of abdominal wall, initial encounter Status: Acute (5) Leukocytosis: Code(s): D72.829 - Elevated white blood cell count, unspecified Status: Acute Plan 73 year old male with past medical history of BPH, coronary artery disease, CABG x4, CKD stage 3, hyperlipidemia, essential hypertension, hypothyroidism, obstructive sleep apnea noncompliant with CPAP presented the ED on 03/31/2024 with complains of nausea, vomiting, diarrhea, confusion over the last few days prior to admission.CT scan of the abdomen and pelvis showed a hematoma of the rectus sheet, CT brain was negative. Patient was admitted to the intermediate Unit for further workup. 04/01/2024 the patient was found to be diaphoretic and hypotensive with systolic blood pressure of 50s. Was started on 2 L of IV fluids bolus started on Levophed via peripheral IV, was transferred to ICU. 1. Shock: Likely combination of hypovolemia, antihypertensives Patient has been moved to ICU Has been started on Levophed Will hold antihypertensives Follow blood cultures, urine cultures Leukocytosis is already improving No identified source of infection. Holding off antibiotics Obtain echocardiogram 2. Rectus sheath hematoma: Appreciate surgery consult Seizure abdominal exam Monitor H&H 3. Acute confusion: Resolved 4. Mild YOBANY: Has resolved, creatinine at baseline 5. Diabetes mellitus: Blood glucose checked t.i.d. a.c. and HS Sliding scale insulin Adjust dose as needed 6. Code status: Full 7. DVT prophylaxis: SCDs, will hold off pharmacological prophylaxis due to rectus sheath hematoma 8. Disposition: Will transfer to ICU Time Spent With Patient Time with patient: 15 - 25 minutes Subjective Date/time seen: 04/01/24 14:39 Interval history: Developed hypotensive episode along with diaphoretic event this morning Patient was pale looking Patient was awake alert and oriented x3 [employer] was called, patient was moved to ICU Review of Systems Review of Systems: All systems reviewed & are unremarkable except as noted in HPI and below Exam Narrative: General: Pale and diaphoretic HEENT:? Pupils equal reactive, sclera is clear, Neck:? Supple Respiratory:? Clear to auscultation bilaterally, adequate air entry, no wheeze Cardiac:? S1-S2 normal, regular rate and rhythm Abdomen:? Soft, nondistended, normoactive bowel sounds, left lower quadrant tenderness Extremities:? No edema, palpable pedal pulses Neuro:? Patient is awake, alert, oriented x3, answers to questions appropriately and moves all extremities to command Skin:? No skin lesions noted Psych:? Normal mentation affect Objective Data Vital Signs Vital Signs: Vital Signs - 24 hr 03/31/24 14:40 03/31/24 14:41 03/31/24 14:48 Temperature Pulse Rate 113 H 126 H 110 H Respiratory Rate 21 H Blood Pressure 134/92 H 106/84 Pulse Oximetry 100 Oxygen Delivery Fraction of Inspired Oxygen 03/31/24 15:00 03/31/24 15:19 03/31/24 15:31 Temperature Pulse Rate 109 H 110 H 113 H Respiratory Rate 19 22 H 14 Blood Pressure 156/101 H Pulse Oximetry 100 100 100 Oxygen Delivery Fraction of Inspired Oxygen 03/31/24 15:32 03/31/24 17:06 03/31/24 18:20 Temperature 98.6 F 98.4 F Pulse Rate 109 H 101 H Respiratory Rate 22 H 16
[2024-04-01 15:51] LABS: Glucose Point of Care 151 mg/dl (65-105)
[2024-04-01 15:54] LABS: Troponin I 0.057 ng/mL (0.000-0.034)
[2024-04-01 18:48] LABS: Troponin I 0.039 ng/mL (0.000-0.034)
[2024-04-01] MEDS: ATORVASTATIN 40 MG TABLET PO (20:28)
[2024-04-01] MEDS: hydrOXYzine HCL 10 MG TABLET 20 MG PO (20:29)
[2024-04-01] MEDS: MELATONIN 3 MG TABLET 12 MG PO (20:31)
[2024-04-01 20:41] LABS: Glucose Point of Care 148 mg/dl (65-105)
[2024-04-02] VITALS (29 sets, daily range): BP systolic 94–127; BP diastolic 53–82; PULSE 62–80; RESP 13–21; TEMP 36.4–36.7; O2SAT 97–99; BMI 29.5
[2024-04-02 04:32] LABS: Basophils Percent Auto 0.5 % (0.2-1.2); Eosinophils Absolute Auto 0.2 K/mm3 (0-0.3); Eosinophils Percent Auto 2.2 % (0-4.4); Hematocrit 28.6 % (42.0-52.0); Hemoglobin 8.9 g/dL (14.0-18.0); Immature Granulocyte Absolute 0.06 K/mm3 (0.00-0.031); Immature Granulocyte Percent A 0.7 % (0-0.5); Lymphocytes Absolute Auto 2.11 K/mm3 (0.9-3.2); Lymphocytes Percent Auto 24.9 % (18.3-44.2); Mean Corpuscular HGB Conc 31.1 g/dl (32-36); Mean Corpuscular Hemoglobin 28.1 pg (26-34); Mean Corpuscular Volume 90.2 fl (80-100); Mean Platelet Volume 9.5 fl (7.4-10.4); Monocytes Absolute Auto 0.9 K/mm3 (0.1-0.6); Monocytes Percent Auto 10.8 % (2.6-8.5); Neutrophils Absolute Auto 5.2 K/mm3 (1.3-6.7); Neutrophils Percent Auto 60.9 % (45.5-73.1); Platelet Count Result 140 k/mm3 (150-375); Red Blood Count 3.17 M/mm3 (4.6-6.20); Red Cell Distribution Width 13.8 % (11.5-14.5); White Blood Count 8.5 K/mm3 (4.5-10.0)
[2024-04-02 04:42] LABS: Lactic Acid Reflex 0.6 mmol/L (0.7-2.0)
[2024-04-02 04:44] LABS: CRP 2.6 mg/dL (<1.0); Lipase 37 U/L (23-300); Phosphorus 3.1 mg/dL (2.5-4.5)
[2024-04-02] MEDS: CENTRAL LINE FLUSH 10 ML IV PUSH ×3 (06:07→20:24)
[2024-04-02] MEDS: LEVOTHYROXINE SODIUM 50 MCG TABLET PO (06:07)
[2024-04-02 07:53] LABS: Glucose Point of Care 102 mg/dl (65-105)
[2024-04-02 08:07] LABS: Alanine Aminotransferase 15 U/L (6-50); Albumin Level 2.7 g/dL (3.5-5.1); Alkaline Phosphatase 97 U/L (38-126); Anion Gap 7 mmol/L (4-12); Aspartate Amino Transferase 40 U/L (17-59); Bilirubin,Total 0.6 mg/dL (0.2-1.3); Blood Urea Nitrogen 44 mg/dL (9-20); Calcium 7.6 mg/dL (8.4-10.2); Carbon Dioxide 19 mmol/L (22-30); Chloride 111 mmol/L (98-107); Estimated CRCL calculation 46 ml/min; Estimated Glomerular Filt Rate 54; Glucose 85 mg/dL (65-110); Magnesium 1.7 mg/dL (1.6-2.3); Potassium 3.6 mmol/L (3.4-5.0); Sodium 137 mmol/L (137-145)
[2024-04-02] MEDS: DULoxetine HCL 60 MG CAPSULE.DR PO ×2 (08:13→16:40)
[2024-04-02] MEDS: buPROPion HCL SR (12 HR) 150 MG TAB PO ×2 (08:13→20:23)
[2024-04-02] MEDS: FINASTERIDE 5 MG TABLET PO (08:13)
[2024-04-02] MEDS: TERAZOSIN HCL 5 MG CAPSULE PO (08:14)
[2024-04-02] MEDS: hydrOXYzine HCL 10 MG TABLET PO ×3 (08:14→16:41)
[2024-04-02] MEDS: OMEGA 3 POLYUNSAT FATTY ACIDS 1 GM CAP 2 GM PO ×2 (08:14→16:41)
[2024-04-02] MEDS: HYDROXYCHLOROQUINE SULFATE 200 MG TABLET PO ×2 (08:14→16:44)
[2024-04-02] MEDS: MIRABEGRON 50 MG ER TABLET PO (08:14)
[2024-04-02] MEDS: PANTOPRAZOLE 40 MG TABLET PO ×2 (08:14→20:23)
[2024-04-02] MEDS: SODIUM BICARBONATE TAB 650 MG TABLET PO (08:14)
[2024-04-02] MEDS: SODIUM BICARBONATE 8.4% 50 MEQ/50 ML SYRINGE IV PUSH (09:01)
[2024-04-02] MEDS: MAGNESIUM SULF 2 GM/WATER 50ML 2 GM/50 ML BAG IVPB (09:01)
[2024-04-02] MEDS: POTASSIUM CHLORIDE 20 MEQ ER TABLET 40 MEQ PO (09:06)
--- NOTE | 2024-04-02 09:12 | WPDINTPN ---
Progress Note: A&P Assessment and Plan (1) Shock: Code(s): R57.9 - Shock, unspecified Status: Acute Assessment and Plan: 04/01/2024: Was called in the intermediate Unit patient being hypotensive with systolic blood pressure in the 50s, -possible etiology hypovolemia as he has not been eating and drinking well for the last few days, right rectus sheath hematoma, blood pressure medications as he received atenolol, lisinopril and Imdur early this morning -2 L IV fluid bolus was given -left IJ central line was inserted and patient started on Levophed -lactic acid was normal -troponins 0.067-> 0.057--> 0.039 which could likely be related to hypotension, ischemic demand -04/01: Blood cultures pending -04/01: Urine culture pending -procalcitonin on admission was negative -CRP is 2.6 -no obvious source of infection on chest x-ray, CT scan of the abdomen and pelvis, UA was negative, will hold antibiotics for now (2) Acute confusion: Code(s): R41.0 - Disorientation, unspecified Status: Acute Assessment and Plan: RESOLVED; -on admission patient had some confusion which has improved and the patient is alert and oriented x3 at this time, -continue to monitor (3) Rectus sheath hematoma: Qualifiers: Encounter type: initial encounter Qualified Code(s): S30.1XXA - Contusion of abdominal wall, initial encounter Code(s): S30.1XXA - Contusion of abdominal wall, initial encounter Status: Acute Assessment and Plan: Right Rectus sheath hematoma as seen on CT of the abdomen and pelvis -surgery has evaluated the patient, will continue to monitor -hemoglobin dropped this morning to 8.9 from 12.0 yesterday could be related to rectus sheath hematoma or dilutional -discussed with surgery, will continue to monitor hemoglobin levels -patient does not have any pain or tenderness in the right lower quadrant -hold aspirin 03/31: CT scan of the abdomen and pelvis with contrast IMPRESSION: Moderate esophagitis/gastritis. Possible cirrhotic change. Fusiform infrarenal abdominal aortic aneurysm measuring up to 3.8 cm. Right common iliac artery ectasia. Right rectus sheath hematoma. (4) Esophagitis with gastritis: Code(s): K29.70 - Gastritis, unspecified, without bleeding; K20.90 - Esophagitis, unspecified without bleeding Status: Acute Assessment and Plan: Continue Protonix 12 hours (5) Abdominal pain: Qualifiers: Abdominal location: lower abdomen, unspecified Qualified Code(s): R10.30 - Lower abdominal pain, unspecified Code(s): R10.9 - Unspecified abdominal pain Status: Acute Assessment and Plan: Patient initially on admission complaining of right-sided abdominal pain which is likely due to the right rectus sheath hematoma -patient also is complaining of left-sided lower abdominal pain -will continue to monitor for now (6) Elevated ALT measurement: Code(s): R74.01 - Elevation of levels of liver transaminase levels Status: Acute Assessment and Plan: Elevated ALT levels could be related to hypoperfusion -CT abdomen and pelvis showed possible cirrhotic changes -hepatitis panel was negative, -LFTs within normal limits, total bili is normal -will continue to monitor Plan DVT prophylaxis: SCDs, no chemoprophylaxis secondary to right rectus sheath hematoma Stress ulcer prophylaxis: Protonix Nutrition: Diabetic diet Code Status: Full code Critical Care Time Spent: 31 minutes Discussed with patient's daughter and spouse and updated them with patient's condition and plan of care. I answered all questions Due to a high probability of clinically significant, life threatening deterioration, the patient required my highest level of preparedness to intervene emergently and I personally spent this critical care time directly and personally managing the patient. This critical care time included obtaining a history; examinin
[2024-04-02 09:22] LABS: INR 1.1; Prothrombin Time 14.6 Seconds (11.1-14.7)
[2024-04-02 09:23] LABS: Partial Thromboplastin Time 30.2 Seconds (22.3-36.8)
--- NOTE | 2024-04-02 11:00 | PM.PNGS ---
Progress Note: A&P Assessment and Plan (1) Rectus sheath hematoma: Qualifiers: Encounter type: initial encounter Qualified Code(s): S30.1XXA - Contusion of abdominal wall, initial encounter Code(s): S30.1XXA - Contusion of abdominal wall, initial encounter Status: Acute Assessment and Plan: Small right rectus sheath hematoma on CT measuring 2.8 x 6.2 cm. Unclear if this is acute or more of a chronic finding since he has not had any recent falls or trauma, but was having falls about a month ago. Hgb has dropped again this morning from 12 to 8.9. The LLQ abdominal pain he was complaining of has resolved. His abdominal exam is benign this morning. He has been weaned off pressors and he is hemodynamically stable this morning. Some of this could be a dilutional effect from the IV fluids he has received since admission. No indication for surgical management at this point. Will continue to monitor. Repeat labs again tomorrow morning. (2) Shock: Code(s): R57.9 - Shock, unspecified Status: Acute Assessment and Plan: Patient with tachycardia on admission, leukocytosis, and developed hypotension after admission. Possible hypovolemic shock that required vasopressors, which have been weaned off this morning. This is resolving after IV fluid resuscitation. Blood cx pending. No obvious signs of an infection suggesting septic shock. Plan I have discussed the patient's case and plan of care with Dr. Navarrete. Subjective Subjective Date/Time Seen: 04/02/24 11:00 Patient reports: afebrile Interval history: Patient is more alert today. He is denies any abdominal pain today. No other complaints at this time. Per nursing, vasopressors were weaned off this morning. White blood cell count normalized. Hemoglobin did drop from 12-8.9 this morning. Vital signs stable this morning off pressors. Exam Const: General: comfortable and no acute distress Orientation/consciousness: patient oriented x3 GI: Inspection: non-distended GI Palp: Yes Soft to palpation, Yes Tenderness to palpation present (GI) (very mild LLQ tenderness, improved from yesterday) and No Guarding due to palpation present (GI) Auscultation: normal bowel sounds Other: No obvious palpable hematoma or enlarging hematoma that is in the location of the right rectus sheath hematoma on CT. Objective Data Vital Signs Vital Signs: Vital Signs - 24 hr 04/01/24 11:03 04/01/24 11:15 04/01/24 12:00 Temperature Pulse Rate 64 67 75 Respiratory Rate 15 17 Blood Pressure 89/51 L 77/49 L 95/61 L Pulse Oximetry 98 98 Oxygen Delivery Fraction of Inspired Oxygen 04/01/24 12:00 04/01/24 12:00 04/01/24 11:30 Temperature Pulse Rate 74 68 Respiratory Rate Blood Pressure 88/57 L Pulse Oximetry Oxygen Delivery Room Air Fraction of Inspired Oxygen 04/01/24 11:45 04/01/24 12:00 04/01/24 12:15 Temperature Pulse Rate 67 75 76 Respiratory Rate Blood Pressure 95/50 L 95/61 L 96/54 L Pulse Oximetry Oxygen Delivery Fraction of Inspired Oxygen 04/01/24 12:30 04/01/24 12:45 04/01/24 13:00 Temperature Pulse Rate 69 72 71 Respiratory Rate Blood Pressure 96/57 L 102/53 L 92/47 L Pulse Oximetry Oxygen Delivery Fraction of Inspired Oxygen 04/01/24 13:15 04/01/24 13:30 04/01/24 13:45 Temperature Pulse Rate 69 69 75 Respiratory Rate Blood Pressure 92/51 L 89/42 L 104/51 L Pulse Oximetry Oxygen Delivery Fraction of Inspired Oxygen 04/01/24 14:00 04/01/24 14:00 04/01/24 14:15 Temperature Pulse Rate 71 71 71 Respiratory Rate 19 Blood Pressure 99/50 L 99/50 L 102/52 L Pulse Oximetry 99 Oxygen Delivery Fraction of Inspired Oxygen 04/01/24 14:30 04/01/24 13:00 04/01/24 14:00 Temperature 96.1 F L Pulse Rate 75 71 Respiratory Rate Blood Pressure 98/55 L Pulse Oximetry Oxygen Delivery Fraction of Inspired Oxygen 06
[2024-04-02 11:55] LABS: Glucose Point of Care 122 mg/dl (65-105)
[2024-04-02 16:40] LABS: Glucose Point of Care 122 mg/dl (65-105)
[2024-04-02 16:43] LABS: Hematocrit 28.5 % (42.0-52.0); Hemoglobin 9.4 g/dL (14.0-18.0); Mean Corpuscular Hemoglobin 28.8 pg (26-34); Mean Corpuscular Volume 87.4 fl (80-100); Mean Platelet Volume 8.9 fl (7.4-10.4); Platelet Count Result 115 k/mm3 (150-375); Red Blood Count 3.26 M/mm3 (4.6-6.20); Red Cell Distribution Width 13.8 % (11.5-14.5); White Blood Count 6.3 K/mm3 (4.5-10.0)
[2024-04-02] MEDS: ATORVASTATIN 40 MG TABLET PO (20:23)
[2024-04-02] MEDS: MELATONIN 3 MG TABLET 12 MG PO (20:23)
[2024-04-02] MEDS: hydrOXYzine HCL 10 MG TABLET 20 MG PO (20:24)
[2024-04-02 20:39] LABS: Glucose Point of Care 125 mg/dl (65-105)
[2024-04-03] VITALS (13 sets, daily range): BP systolic 105–130; BP diastolic 58–69; PULSE 63–85; RESP 15–20; TEMP 36–37.1; O2SAT 97–99
[2024-04-03] MEDS: traMADol HCL (*CRX) 50 MG TABLET PO ×2 (03:17→23:27)
[2024-04-03 03:41] LABS: Basophils Percent Auto 0.5 % (0.2-1.2); Eosinophils Absolute Auto 0.3 K/mm3 (0-0.3); Hematocrit 28.1 % (42.0-52.0); Hemoglobin 9.2 g/dL (14.0-18.0); Immature Granulocyte Absolute 0.04 K/mm3 (0.00-0.031); Immature Granulocyte Percent A 0.6 % (0-0.5); Lymphocytes Absolute Auto 1.68 K/mm3 (0.9-3.2); Mean Corpuscular HGB Conc 32.7 g/dl (32-36); Mean Corpuscular Hemoglobin 28.5 pg (26-34); Mean Platelet Volume 9.6 fl (7.4-10.4); Monocytes Absolute Auto 0.6 K/mm3 (0.1-0.6); Monocytes Percent Auto 9.3 % (2.6-8.5); Neutrophils Absolute Auto 3.8 K/mm3 (1.3-6.7); Neutrophils Percent Auto 58.6 % (45.5-73.1); Platelet Count Result 127 k/mm3 (150-375); Red Blood Count 3.23 M/mm3 (4.6-6.20); Red Cell Distribution Width 13.8 % (11.5-14.5); White Blood Count 6.5 K/mm3 (4.5-10.0)
[2024-04-03 03:54] LABS: Alanine Aminotransferase 15 U/L (6-50); Albumin Level 2.9 g/dL (3.5-5.1); Alkaline Phosphatase 104 U/L (38-126); Anion Gap 5 mmol/L (4-12); Aspartate Amino Transferase 37 U/L (17-59); Bilirubin,Total 0.7 mg/dL (0.2-1.3); Blood Urea Nitrogen 34 mg/dL (9-20); Calcium 8.3 mg/dL (8.4-10.2); Carbon Dioxide 23 mmol/L (22-30); Chloride 111 mmol/L (98-107); Estimated CRCL calculation 50 ml/min; Estimated Glomerular Filt Rate 59; Glucose 90 mg/dL (65-110); Phosphorus 2.6 mg/dL (2.5-4.5); Potassium 3.9 mmol/L (3.4-5.0); Sodium 139 mmol/L (137-145)
[2024-04-03] MEDS: LEVOTHYROXINE SODIUM 50 MCG TABLET PO (06:16)
[2024-04-03] MEDS: CENTRAL LINE FLUSH 10 ML IV PUSH ×3 (06:16→21:14)
[2024-04-03 07:39] LABS: Glucose Point of Care 94 mg/dl (65-105)
[2024-04-03] MEDS: DULoxetine HCL 60 MG CAPSULE.DR PO ×2 (09:15→17:04)
[2024-04-03] MEDS: buPROPion HCL SR (12 HR) 150 MG TAB PO ×2 (09:15→21:13)
[2024-04-03] MEDS: FINASTERIDE 5 MG TABLET PO (09:16)
[2024-04-03] MEDS: HYDROXYCHLOROQUINE SULFATE 200 MG TABLET PO ×2 (09:16→17:04)
[2024-04-03] MEDS: OMEGA 3 POLYUNSAT FATTY ACIDS 1 GM CAP 2 GM PO ×2 (09:17→17:05)
[2024-04-03] MEDS: MIRABEGRON 50 MG ER TABLET PO (09:17)
[2024-04-03] MEDS: hydrOXYzine HCL 10 MG TABLET PO ×3 (09:17→17:05)
[2024-04-03] MEDS: PANTOPRAZOLE 40 MG TABLET PO ×2 (09:17→21:13)
[2024-04-03] MEDS: TERAZOSIN HCL 5 MG CAPSULE PO (09:18)
[2024-04-03] MEDS: SODIUM BICARBONATE TAB 650 MG TABLET PO (09:18)
--- NOTE | 2024-04-03 09:51 | WPDINTPN ---
Progress Note: A&P Assessment and Plan (1) Shock: Code(s): R57.9 - Shock, unspecified Status: Acute Assessment and Plan: 04/01/2024: Was called in the intermediate Unit patient being hypotensive with systolic blood pressure in the 50s, -possible etiology hypovolemia as he has not been eating and drinking well for the last few days, right rectus sheath hematoma, blood pressure medications as he received atenolol, lisinopril and Imdur early this morning -2 L IV fluid bolus was given -left IJ central line was inserted and patient started on Levophed -lactic acid was normal -troponins 0.067-> 0.057--> 0.039 which could likely be related to hypotension, ischemic demand -04/01: Blood cultures pending -04/01: Urine culture pending -procalcitonin on admission was negative -CRP is 2.6, which could be related to the rectus sheath hematoma -no obvious source of infection on chest x-ray, CT scan of the abdomen and pelvis, UA was negative, will hold antibiotics for now (2) Acute confusion: Code(s): R41.0 - Disorientation, unspecified Status: Acute Assessment and Plan: RESOLVED; -on admission patient had some confusion which has improved and the patient is alert and oriented x3 at this time, -continue to monitor (3) Rectus sheath hematoma: Qualifiers: Encounter type: initial encounter Qualified Code(s): S30.1XXA - Contusion of abdominal wall, initial encounter Code(s): S30.1XXA - Contusion of abdominal wall, initial encounter Status: Acute Assessment and Plan: Right Rectus sheath hematoma as seen on CT of the abdomen and pelvis -surgery has evaluated the patient, will continue to monitor -hemoglobin dropped this morning to 8.9 from 12.0 yesterday could be related to rectus sheath hematoma or dilutional -discussed with surgery, will continue to monitor hemoglobin levels -patient does not have any pain or tenderness in the right lower quadrant -hold aspirin -globin has been stable and slightly improved 03/31: CT scan of the abdomen and pelvis with contrast IMPRESSION: Moderate esophagitis/gastritis. Possible cirrhotic change. Fusiform infrarenal abdominal aortic aneurysm measuring up to 3.8 cm. Right common iliac artery ectasia. Right rectus sheath hematoma. (4) Esophagitis with gastritis: Code(s): K29.70 - Gastritis, unspecified, without bleeding; K20.90 - Esophagitis, unspecified without bleeding Status: Acute Assessment and Plan: Continue Protonix 12 hours (5) Abdominal pain: Qualifiers: Abdominal location: lower abdomen, unspecified Qualified Code(s): R10.30 - Lower abdominal pain, unspecified Code(s): R10.9 - Unspecified abdominal pain Status: Acute Assessment and Plan: Patient initially on admission complaining of right-sided abdominal pain which is likely due to the right rectus sheath hematoma -patient also is complaining of left-sided lower abdominal pain -04/03/2024: Patient denies any abdominal pain on either side (6) Elevated ALT measurement: Code(s): R74.01 - Elevation of levels of liver transaminase levels Status: Acute Assessment and Plan: Elevated ALT levels could be related to hypoperfusion -CT abdomen and pelvis showed possible cirrhotic changes -hepatitis panel was negative, -LFTs within normal limits, total bili is normal -will continue to monitor Plan DVT prophylaxis: SCDs, no chemoprophylaxis secondary to right rectus sheath hematoma Stress ulcer prophylaxis: Protonix Nutrition: Diabetic diet Code Status: Full code Critical Care Time Spent: 31 minutes Patient may transfer out of the ICU Discussed with patient's daughter and spouse and updated them with patient's condition and plan of care. I answered all questions Due to a high probability of clinically significant, life threatening deterioration, the patient required my highest level of preparedness to intervene e
[2024-04-03 11:55] LABS: Glucose Point of Care 145 mg/dl (65-105)
--- NOTE | 2024-04-03 12:41 | PM.IMPN ---
Progress Note: A&P Assessment and Plan (1) Shock: Code(s): R57.9 - Shock, unspecified Status: Acute (2) Orthostatic hypotension: Code(s): I95.1 - Orthostatic hypotension Status: Acute (3) Elevated ALT measurement: Code(s): R74.01 - Elevation of levels of liver transaminase levels Status: Acute (4) Esophagitis with gastritis: Code(s): K29.70 - Gastritis, unspecified, without bleeding; K20.90 - Esophagitis, unspecified without bleeding Status: Acute (5) Acute confusion: Code(s): R41.0 - Disorientation, unspecified Status: Acute (6) Rectus sheath hematoma: Qualifiers: Encounter type: initial encounter Qualified Code(s): S30.1XXA - Contusion of abdominal wall, initial encounter Code(s): S30.1XXA - Contusion of abdominal wall, initial encounter Status: Acute Plan Right Rectus sheath hematoma seen on CT of the abdomen and pelvis -surgery has evaluated the patient, will continue to monitor Monitor H&H 9.4/9.2 -discussed with surgery, will continue to monitor hemoglobin levels Hypotension/ hypovolemic shock Etiology poor intake/dehydration/multiple blood pressure med. Encourage oral intake continue IV hydration monitor BP closely Read just blood pressure meds Elevated liver enzyme possibly due to hypoperfusion continue monitor. History of hyperlipidemia continue Lipitor. history of hypertension BP meds on hold History of anxiety continue Wellbutrin/Cymbalta History BPH continue Proscar History of hypothyroidism continue levothyroxine. History of diabetes continue sliding Subjective Date/time seen: 04/03/24 12:41 Interval history: Patient is 73-year-old male who was admitted to the ICU because of hypotension etiology of hypertension was hypovolemia and using multiple blood pressure medications. Patient admitted to ICU and was started on Levophed. Patient has no sign of sepsis troponins were negative lactic acid was normal. Patient noted to have right rectal sheath hematoma seen on CT scan H&H being monitored closely Review of Systems Review of Systems: All systems reviewed & are unremarkable except as noted in HPI and below Exam Narrative: GENERAL: Well appearing, no acute distress. HEAD: Normocephalic, atraumatic. NECK: Supple. No adenopathy, no masses. RESPIRATORY: respirations nonlabored. , no rales, wheezing. CARDIOVASCULAR: Regular rate and rhythm without murmurs, . Peripheral pulses 2+ and equal bilaterally. ABDOMINAL: Soft, tender, nondistended, no hepatosplenomegaly. Normoactive BS. Right rectal sheath hematoma MUSCULOSKELETAL: no Epigastric and no hypochondrial tenderness SKIN: Warm, dry, NEURO: A&O X3. Moves all extremities Objective Data Vital Signs Vital Signs: Vital Signs - 24 hr 04/02/24 14:00 04/02/24 14:00 04/02/24 15:12 Temperature 36.6 C Pulse Rate 68 68 Respiratory Rate 18 Blood Pressure 113/63 Pulse Oximetry 98 Oxygen Delivery Room Air Fraction of Inspired Oxygen 04/02/24 16:00 04/02/24 16:00 04/02/24 16:00 Temperature 36.5 C Pulse Rate 66 62 Respiratory Rate 17 Blood Pressure 113/65 Pulse Oximetry 97 Oxygen Delivery Room Air Fraction of Inspired Oxygen 04/02/24 18:00 04/02/24 20:00 04/02/24 23:00 Temperature 36.4 C 36.5 C Pulse Rate 80 64 67 Respiratory Rate 19 20 Blood Pressure 120/61 127/82 Pulse Oximetry 99 97 Oxygen Delivery Fraction of Inspired Oxygen 04/03/24 00:00 04/03/24 02:00 04/02/24 20:00 Temperature 36.6 C 36.6 C Pulse Rate 63 64 Respiratory Rate 20 19 Blood Pressure 127/69 117/62 Pulse Oximetry 99 98 Oxygen Delivery Room Air Fraction of Inspired Oxygen 04/02/24 20:00 04/02/24 22:00 04/03/24 00:00 Temperature Pulse Rate 64 63 Respiratory Rate Blood Pressure Pulse Oximetry Oxygen Delivery Room Air Fraction of Inspired Oxygen 04/03/24 00:00 04/03/24
[2024-04-03 15:52] LABS: Glucose Point of Care 109 mg/dl (65-105)
[2024-04-03] MEDS: hydrOXYzine HCL 10 MG TABLET 20 MG PO (21:13)
[2024-04-03] MEDS: MELATONIN 3 MG TABLET 12 MG PO (21:13)
[2024-04-03] MEDS: ATORVASTATIN 40 MG TABLET PO (21:13)
[2024-04-03 21:17] LABS: Glucose Point of Care 89 mg/dl (65-105)
[2024-04-04] VITALS (13 sets, daily range): BP systolic 108–144; BP diastolic 57–106; PULSE 65–93; RESP 16–19; TEMP 36.6–37; O2SAT 99–100
[2024-04-04 05:03] LABS: Basophils Percent Auto 0.4 % (0.2-1.2); Eosinophils Absolute Auto 0.5 K/mm3 (0-0.3); Eosinophils Percent Auto 6.9 % (0-4.4); Hematocrit 27.9 % (42.0-52.0); Hemoglobin 9.2 g/dL (14.0-18.0); Immature Granulocyte Absolute 0.05 K/mm3 (0.00-0.031); Immature Granulocyte Percent A 0.7 % (0-0.5); Lymphocytes Absolute Auto 2.22 K/mm3 (0.9-3.2); Lymphocytes Percent Auto 30.2 % (18.3-44.2); Mean Corpuscular Hemoglobin 28.8 pg (26-34); Mean Corpuscular Volume 87.2 fl (80-100); Mean Platelet Volume 9.5 fl (7.4-10.4); Monocytes Absolute Auto 0.7 K/mm3 (0.1-0.6); Neutrophils Absolute Auto 3.9 K/mm3 (1.3-6.7); Neutrophils Percent Auto 52.8 % (45.5-73.1); Platelet Count Result 134 k/mm3 (150-375); Red Cell Distribution Width 13.5 % (11.5-14.5); White Blood Count 7.4 K/mm3 (4.5-10.0)
[2024-04-04 05:11] LABS: Alanine Aminotransferase 14 U/L (6-50); Albumin Level 2.7 g/dL (3.5-5.1); Alkaline Phosphatase 103 U/L (38-126); Anion Gap 2 mmol/L (4-12); Aspartate Amino Transferase 30 U/L (17-59); Bilirubin,Total 0.6 mg/dL (0.2-1.3); Blood Urea Nitrogen 29 mg/dL (9-20); Calcium 8.5 mg/dL (8.4-10.2); Carbon Dioxide 27 mmol/L (22-30); Chloride 109 mmol/L (98-107); Estimated CRCL calculation 50 ml/min; Estimated Glomerular Filt Rate 59; Glucose 91 mg/dL (65-110); Potassium 3.8 mmol/L (3.4-5.0); Sodium 138 mmol/L (137-145)
[2024-04-04] MEDS: LEVOTHYROXINE SODIUM 50 MCG TABLET PO (06:42)
[2024-04-04] MEDS: CENTRAL LINE FLUSH 10 ML IV PUSH ×3 (06:42→21:30)
[2024-04-04 08:16] LABS: Glucose Point of Care 148 mg/dl (65-105)
[2024-04-04] MEDS: SODIUM BICARBONATE TAB 650 MG TABLET PO (08:19)
[2024-04-04] MEDS: MIRABEGRON 50 MG ER TABLET PO (08:19)
[2024-04-04] MEDS: hydrOXYzine HCL 10 MG TABLET PO ×3 (08:19→16:49)
[2024-04-04] MEDS: buPROPion HCL SR (12 HR) 150 MG TAB PO ×2 (08:19→21:51)
[2024-04-04] MEDS: FINASTERIDE 5 MG TABLET PO (08:19)
[2024-04-04] MEDS: OMEGA 3 POLYUNSAT FATTY ACIDS 1 GM CAP 2 GM PO ×2 (08:19→16:50)
[2024-04-04] MEDS: HYDROXYCHLOROQUINE SULFATE 200 MG TABLET PO ×2 (08:19→16:49)
[2024-04-04] MEDS: TERAZOSIN HCL 5 MG CAPSULE PO (08:19)
[2024-04-04] MEDS: PANTOPRAZOLE 40 MG TABLET PO ×2 (08:19→21:51)
[2024-04-04] MEDS: DULoxetine HCL 60 MG CAPSULE.DR PO ×2 (08:19→16:49)
[2024-04-04 12:02] LABS: Glucose Point of Care 147 mg/dl (65-105)
[2024-04-04 16:49] LABS: Glucose Point of Care 114 mg/dl (65-105)
--- NOTE | 2024-04-04 19:23 | PM.IMPN ---
Progress Note: A&P Assessment and Plan (1) Shock: Code(s): R57.9 - Shock, unspecified Status: Acute (2) Rectus sheath hematoma: Qualifiers: Encounter type: initial encounter Qualified Code(s): S30.1XXA - Contusion of abdominal wall, initial encounter Code(s): S30.1XXA - Contusion of abdominal wall, initial encounter Status: Acute Plan Continue to monitor blood pressure. Continue to monitor hemoglobin. With Dr. Bull, feels it is okay to restart aspirin. Discussed the risks versus benefits of restarting aspirin. The patient was restarted. Will restart today. Home in the morning of Subjective Date/time seen: 04/04/24 19:23 Interval history: No acute overnight events. She wanted to go home earlier but he is okay in the evening. Feels he can not feel his hematoma in the rectus sheath. Denies syncope or dizziness. Review of Systems Review of Systems: All systems reviewed & are unremarkable except as noted in HPI and below (Subjective) Exam Const: General: comfortable and no acute distress Eyes: Pupils: Equal, round and reactive pupils present Neck: Neck: supple Resp: Effort & Inspection: normal respiratory effort Auscultation: clear to auscultation bilaterally Cardio: Rate: regular rate Rhythm: regular rhythm GI: GI Palp: Yes Soft to palpation and No Tenderness to palpation present (GI) Extrem: General: no edema Objective Data Vital Signs Vital Signs: Vital Signs - 24 hr 04/03/24 20:00 04/03/24 20:00 04/03/24 20:00 Temperature 97.8 F Pulse Rate 67 65 Respiratory Rate 17 Blood Pressure 129/62 Pulse Oximetry 99 Oxygen Delivery Room Air 04/03/24 22:00 04/04/24 00:00 04/04/24 00:00 Temperature 97.8 F Pulse Rate 68 73 Respiratory Rate 19 Blood Pressure 120/67 Pulse Oximetry 99 Oxygen Delivery Room Air 04/04/24 00:00 04/04/24 02:00 04/04/24 04:00 Temperature Pulse Rate 76 70 Respiratory Rate Blood Pressure Pulse Oximetry Oxygen Delivery Room Air 04/04/24 04:00 04/04/24 04:00 04/04/24 06:00 Temperature 98.0 F Pulse Rate 66 68 65 Respiratory Rate 16 Blood Pressure 117/62 Pulse Oximetry 99 Oxygen Delivery 04/04/24 08:00 04/04/24 08:00 04/04/24 08:00 Temperature 98.6 F Pulse Rate 76 75 Respiratory Rate 19 Blood Pressure 113/59 L Pulse Oximetry 100 Oxygen Delivery Room Air 04/04/24 10:00 04/04/24 12:00 04/04/24 12:00 Temperature 98.2 F Pulse Rate 77 83 Respiratory Rate 19 Blood Pressure 130/106 H Pulse Oximetry 100 Oxygen Delivery Room Air 04/04/24 12:00 04/04/24 14:00 04/04/24 16:00 Temperature Pulse Rate 93 83 Respiratory Rate Blood Pressure Pulse Oximetry Oxygen Delivery Room Air 04/04/24 16:00 04/04/24 16:00 04/04/24 18:00 Temperature 98 F Pulse Rate 69 74 69 Respiratory Rate 19 Blood Pressure 108/57 L Pulse Oximetry 100 Oxygen Delivery Intake/Output Intake/Output: Intake & Output 04/01/24 04/02/24 04/03/24 04/04/24 23:59 23:59 23:59 23:59 Intake Total 5046.4 1870.5 880 650 Output Total 149 423 8920 950 Balance 4646.4 995.5 -170 -300 Meds/Results Medications: Active Medications Generic Name Dose Route Start Last Admin Trade Name Freq PRN Reason Stop Dose Admin Aspirin 81 mg 04/01/24 09:00 04/01/24 08:55 Aspirin 81 Mg Enteric Tablet PO 05/01/24 08:59 81 mg DAILY MARTELL Administration Atenolol 12.5 mg 04/01/24 09:00 04/01/24 05:50 Atenolol 12.5 Mg Tablet PO 12.5 mg DAILY MARTELL Administration Atorvastatin Calcium 40 mg 04/01/24 21:00 04/03/24 21:13 Atorvastatin 40 Mg Tablet PO 40 mg HS MARTELL Administration Bupropion HCl 150 mg 04/01/24 09:00 04/04/24 08:19 Bupropion Hcl Sr (12 Hr) 150 Mg Tab PO 150 mg Q12HR MARTELL Administration Dextrose 12.5 gm 03/31/24 20:42 Dextrose 50% 25 Gm/50 Ml Syringe IV PUSH PRN PRN Hypoglycemia Pr
[2024-04-04 20:07] LABS: Glucose Point of Care 111 mg/dl (65-105)
[2024-04-04] MEDS: MELATONIN 3 MG TABLET 12 MG PO (21:50)
[2024-04-04] MEDS: traMADol HCL (*CRX) 50 MG TABLET PO (21:51)
[2024-04-04] MEDS: ATORVASTATIN 40 MG TABLET PO (21:51)
[2024-04-04] MEDS: hydrOXYzine HCL 10 MG TABLET 20 MG PO (21:51)
[2024-04-05] VITALS: BP 131/71; PULSE 69; PULSE 71; RESP 13; TEMP 36.8; O2SAT 99
[2024-04-05 02:00] VITALS: PULSE 76
--- NOTE | 2024-04-05 03:06 | PHAR ---
TROSPIUM 20 MG BID ENTERED HOME MED (NON-FORMULARY). HOME MED SENT TO PHARMACY TO VERIFY WAS TROSPIUM 60 MG ONCE A DAY. NOT THE SAME STRENGTH OR DAILY DOSE.
[2024-04-05 04:00] VITALS: BP 117/62; PULSE 74; PULSE 78; RESP 18; TEMP 36.8; O2SAT 100
[2024-04-05] MEDS: traMADol HCL (*CRX) 50 MG TABLET PO (04:06)
[2024-04-05] MEDS: LEVOTHYROXINE SODIUM 50 MCG TABLET PO (05:57)
[2024-04-05] MEDS: CENTRAL LINE FLUSH 10 ML IV PUSH (05:57)
[2024-04-05 05:58] LABS: Hematocrit 28.7 % (42.0-52.0); Hemoglobin 9.4 g/dL (14.0-18.0); Mean Corpuscular HGB Conc 32.8 g/dl (32-36); Mean Corpuscular Hemoglobin 28.4 pg (26-34); Mean Corpuscular Volume 86.7 fl (80-100); Mean Platelet Volume 9.1 fl (7.4-10.4); Platelet Count Result 144 k/mm3 (150-375); Red Blood Count 3.31 M/mm3 (4.6-6.20); Red Cell Distribution Width 13.8 % (11.5-14.5); White Blood Count 7.6 K/mm3 (4.5-10.0)
[2024-04-05 06:00] VITALS: PULSE 81
[2024-04-05 06:10] LABS: Anion Gap 2 mmol/L (4-12); Blood Urea Nitrogen 24 mg/dL (9-20); Calcium 8.7 mg/dL (8.4-10.2); Carbon Dioxide 28 mmol/L (22-30); Chloride 108 mmol/L (98-107); Estimated CRCL calculation 50 ml/min; Estimated Glomerular Filt Rate 59; Glucose 110 mg/dL (65-110); Magnesium 1.8 mg/dL (1.6-2.3); Potassium 3.8 mmol/L (3.4-5.0); Sodium 138 mmol/L (137-145)
[2024-04-05 06:43] LABS: Procalcitonin 0.1 ng/mL
--- NOTE | 2024-04-05 07:21 | PM.DS ---
DS: Admitting Diagnosis Discharge Date April 05, 2024 Admitting Diagnosis Hypotension DS: Discharge Diagnosis Discharge Diagnosis (1) Shock: Code(s): R57.9 - Shock, unspecified Status: Acute (2) Rectus sheath hematoma: Qualifiers: Encounter type: initial encounter Qualified Code(s): S30.1XXA - Contusion of abdominal wall, initial encounter Code(s): S30.1XXA - Contusion of abdominal wall, initial encounter Status: Acute DS: Summary Hospital Course Hospital Course: Mr. Medellin is a pleasant 73-year-old male with past medical history BPH, CAD status post CABG x4, CKD stage 3, hyperlipidemia, essential hypertension, hypothyroidism, MARLENY noncompliant with CPAP who presented to [place] [facility] on March 31, 2024 with complaints of nausea vomiting diarrhea confusion over the last few days prior to admission. Also complained of right lower quadrant pain. He was afebrile with significant leukocytosis of 22.2 hemoglobin of 14.2. He had a normal procalcitonin and UA negative for UTI. Chest x-ray with no acute cardiopulmonary disease. CT scan of abdomen pelvis showed a hematoma of the rectus sheath. CT scan of brain was negative. Systolic blood pressures were in the 50s. The patient received large volume fluid resuscitation. Levophed administer. His shock resolved quite rapidly after this. Lactic acid was normal. No source of infection was found and antibiotics were not administered. His confusion also resolved. General surgery evaluated the patient and they recommended monitoring of hemoglobin levels. Hemoglobin on admission was 14.2 and trended down to alex of 8.9 and then stabilized in the mid 9's. Blood cultures negative to date. His acute blood loss due to rectus sheath hematoma likely cause hypovolemic shock and his symptomatology on admission. Patient ordered a repeat CBC and 3 days assess the stability of his hemoglobin. We discussed the risk versus benefit of aspirin use in the setting of rectus sheath hematoma which appears to be stable and history of CAD status post CABG x4. General surgery recommended okay to restart aspirin. The patient as well wanting to start aspirin accepting the risk of bleeding as he wants to protect his heart. Will restart his home dose atenolol and hold lisinopril and isosorbide mononitrate. His BP is on the lower side. We discussed the importance of close follow-up with PCP Dr. Nicholson. His guest relations representative retired the patient will see our [facility] guest relations representative in [place]. Advised to call for appointment within the next 2 weeks. Patient will also watch his blood pressures and if systolic is above 130 he will notify primary doctor to restart blood pressure medications. All of his questions and concerns were answered to satisfaction and patient is in understanding and agreement with the above plan. Was full code during the admission. Patient does not have heart failure. Time Spent with Patient Time attestation: Total time spent providing and/or coordinating discharge services: Exam Const: General: comfortable and no acute distress Eyes: Pupils: Equal, round and reactive pupils present Neck: Neck: supple Resp: Effort & Inspection: normal respiratory effort Auscultation: clear to auscultation bilaterally Cardio: Rate: regular rate Rhythm: regular rhythm GI: GI Palp: Yes Soft to palpation Extrem: General: no edema DS: Data Data Completed and Pending Labs on day of discharge: Labs from last 24 hours 04/05/24 04/04/24 04/04/24 05:52 20:04 16:45 WBC 7.6 RBC 3.31 L Hgb 9.4 L Hct 28.7 L MCV 86.7 MCH 28.4 MCHC 32.8 RDW 13.8 Plt Count 144 L MPV 9.1 Sodium 138 Potassium 3.8 Chloride 108 H Carbon Dioxide 28 Anion Gap 2 L BUN 24 H Creatinine 1.20 Estim Creat Clear Calc 50 Estimated GFR 59 Glucose 110 POC Capillary Glucose 111 H 114 H Calcium 8.7 Magnesium 1.8 Proca
[2024-04-05 07:51] LABS: Glucose Point of Care 165 mg/dl (65-105)
[2024-04-05 08:00] VITALS: PULSE 89
[2024-04-05 08:19] VITALS: BP 151/77; PULSE 91; RESP 19; TEMP 37; O2SAT 94
[2024-04-05] MEDS: FINASTERIDE 5 MG TABLET PO (09:26)
[2024-04-05] MEDS: ASPIRIN 81 MG ENTERIC TABLET PO (09:26)
[2024-04-05] MEDS: buPROPion HCL SR (12 HR) 150 MG TAB PO (09:26)
[2024-04-05] MEDS: DULoxetine HCL 60 MG CAPSULE.DR PO (09:26)
[2024-04-05] MEDS: hydrOXYzine HCL 10 MG TABLET PO (09:26)
[2024-04-05] MEDS: TERAZOSIN HCL 5 MG CAPSULE PO (09:27)
[2024-04-05] MEDS: OMEGA 3 POLYUNSAT FATTY ACIDS 1 GM CAP 2 GM PO (09:27)
[2024-04-05] MEDS: PANTOPRAZOLE 40 MG TABLET PO (09:27)
[2024-04-05] MEDS: SODIUM BICARBONATE TAB 650 MG TABLET PO (09:27)
[2024-04-05] MEDS: MIRABEGRON 50 MG ER TABLET PO (09:27)
== END 2024-04-05 09:41 | disposition home or self-care (01) | DRG 604 ==
LOC: ANHED 14:17 → ANHIMU 18:23 → ANHICU 04-01 10:28
PROVIDERS: Internal Medicine; Admitting Provider Internal Medicine; Emergency Provider Emergency Medicine; Visit Provider General Practice
DX: S30.1XXA Contusion of abdominal wall, initial encounter (principal); R57.1 Hypovolemic shock; R65.10 Systemic inflammatory response syndrome (SIRS) of non-infectious origin without acute organ dysfunction; N17.9 Acute kidney failure, unspecified; Z20.822 Contact with and (suspected) exposure to COVID-19; N40.0 Benign prostatic hyperplasia without lower urinary tract symptoms; I25.10 Atherosclerotic heart disease of native coronary artery without angina pectoris; I12.9 Hypertensive chronic kidney disease with stage 1 through stage 4 chronic kidney disease, or unspecified chronic kidney disease; I95.1 Orthostatic hypotension; E11.22 Type 2 diabetes mellitus with diabetic chronic kidney disease; N18.30 Chronic kidney disease, stage 3 unspecified; D72.829 Elevated white blood cell count, unspecified; G47.33 Obstructive sleep apnea (adult) (pediatric); E86.0 Dehydration; E83.52 Hypercalcemia; R41.0 Disorientation, unspecified; E03.9 Hypothyroidism, unspecified; K20.90 Esophagitis, unspecified without bleeding; W06.XXXA Fall from bed, initial encounter; R74.01 Elevation of levels of liver transaminase levels; K29.70 Gastritis, unspecified, without bleeding; F41.9 Anxiety disorder, unspecified; E78.5 Hyperlipidemia, unspecified; E66.01 Morbid (severe) obesity due to excess calories; Z68.28 Body mass index [BMI] 28.0-28.9, adult; Z95.1 Presence of aortocoronary bypass graft; Z87.891 Personal history of nicotine dependence
CPT/HCPCS: 36415; 70450; 71046; 74177; 80048; 80053; 80074; 81001; 82140; 82607; 82746; 82948; 83605; 83690; 83735; 84100; 84145; 84443; 84484; 85025; 85027; 85610; 85652; 85730; 86140; 87040; 87086; 87637; 93005; 96361; 96374; 97116; 97161; 97165; 97530; 99285; A9270; C1751; C8929; G0378; J2270; J3475; J7030; Q9957; Q9967

== ENCOUNTER 2024-04-24 19:22 | Observation (INO) | payer MEDICARE, OTHER, SELFPAY ==
--- NOTE | ~2024-04-24 | CT_ITS ---
CTA chest abdomen pelvis Ordering provider: Jasmin Echols PA-C History: . chest and abd pain . Comparison: None. Technique: CT angiogram chest, abdomen and pelvis was performed following timed intravenous injection of contrast. Thin slice axial images and reformatted coronal images were obtained. Three dimensional reformatted images of the chest were also obtained using a [employer] workstation. Radiation reduction t echnique utilized. DLP is 826.46 mGy. 100 mL of Omnipaque 350 was given IV. FINDINGS: CHEST: --THORACIC AORTA: Mild atheromatous disease. No aneurysm, dissection or mediastinal hematoma. Slight dilatation of the ascending aorta is seen measuring 4.4 cm. --GREAT VESSELS: Normal as visualized. --PULMONARY ARTERIES: No pulmonary embolus. --VISUALIZED THORACIC INLET: Normal. --MEDIASTINUM: Coronary arteries: Mild atheromatous disease. Heart/other: The heart is not enlarged. Lymph nodes: No mediastinal or hilar adenopathy. --LUNGS: No pulmonary nodules or masses. No infiltrates or effusions. No pneumothorax. Fibrotic and emphysemat ous changes with dependent atelectatic changes are seen in the lung bases. --MUSCULOSKELETAL: Superficial soft tissues: The superficial soft tissues are normal. Bones: Age appropriate degenerative changes of the spine. ABDOMEN/PELVIS: --MUSCULOSKELETAL: Bones: Age appropriate degenerative changes of the spine. Bilateral sacroiliacs. Left hip arthroplast y. Superficial soft tissues: The superficial soft tissues are normal. --UPPER ABDOMINAL ORGANS: Liver: Cirrhotic changes seen in the liver. Gallbladder: Distended gallbladder. Spleen: Normal. Stomach/duodenum: Slightly thickened distal esophagus suggestive of reflux esophagitis. . Pancreas: Atrophic pancreas. Adrenals: Normal. Kidneys: Small cyst in the right kidney lower pole. Cyst in the left kidney lower pole. Small cysts i n the left kidney lower pole and mid pole. --PELVIC ORGANS: The bladder is normal. No bladder stones. --BOWEL AND MESENTERY: Colon: Mild diverticulosis without diverticulitis sigmoid colon. Normal appendix. Small Bowel: Normal. No obstruction. Peritoneum/mesentery: No free air or free fluid. No mesenteric lymphadenopathy. --RETROPERITONEUM: No retroperitoneal lymphadenopathy. --ARTERIES: ABDOMINAL AORTA: Mild atheromatous disease. Abdominal aortic aneurysm is seen measuring 3.7 x 3.6 c m. RENAL ARTERIES: Atherosclerotic changes. CELIAC AXIS: Atherosclerotic changes. SMA: Atherosclerotic changes. ANGIE: Normal. ILIAC AND VISUALIZED FEMORAL ARTERIES: No sclerotic with slight dilatation the right measures 1.8 c m in the left measures 1.5 cm. MESENTERIC ARTERIES: Normal. IMPRESSION: CHEST: 1. Slight dilatation of the ascending aorta measuring 4.4 cm. 2. No pulmonary embolism. ABDOMEN/PELVIS: 1. Aortic aneurysm measuring 3.6 x 3.7. 2. Slight dilatation of the common iliac arteries. 3. Highly suggestive liver cirrhosis. 4. Distended gallbladder with no gallstones. 5. Bilateral renal cysts. Reviewed, dictated and finalized at location A.
[2024-04-24 19:23] VITALS: BP 109/79; PULSE 100; RESP 17; TEMP 36.7; O2SAT 98
[2024-04-24 19:28] VITALS: PULSE 100; O2SAT 98
--- NOTE | 2024-04-24 19:43 | ECG_ITS ---
Test Date: 2024-04-24 19:59:43 Measurements Intervals Orient Rate: 92 P: 98 UT: 221 QRS: 140 QRSD: 109 T: -12 QT: 336 QTc: 416 Interpretive Statements SINUS RHYTHM WITH FIRST DEGREE AV BLOCK RIGHT AXIS DEVIATION CONSIDER INFERIOR INFARCT, AGE INDETERMINATE BASELINE ARTIFACT- I, II, III, AVL, AVF ABNORMAL ECG Compared to ECG 04/01/2024 10:44:17 NO SIGNIFICANT CHANGE Electronically Signed On 04-24-2024 20:51:16 CDT by Derek Kaur D.O.
--- NOTE | 2024-04-24 19:47 | ED.CHESTPAIN ---
HPI - Chest Pain General Chief Complaint: Chest Pain <Jasmin Echols PA-C - Last Filed: 04/25/24 00:15> Stated Complaint: Chest pain <Jasmin Echols PA-C - Last Filed: 04/25/24 00:15> Time Seen by Provider: 04/24/24 19:33 <Jasmin Echols PA-C - Last Filed: 04/25/24 00:15> History of Present Illness HPI narrative: 74-year-old male with a history of CAD, s/p CABG x4, CKD, hyperlipidemia, hypertension, hypothyroidism, MARLENY presents to the emergency department for chest pain. Patient states he went to the grocery store and got a large pack of water bottles. States he moved or bowels 3 times and each time felt short of breath, or on the 3rd attempt to move water bottles he had a sharp pinpoint chest pain to the left anterior aspect of his chest. States that lasted 2nd and self-resolved. It did not radiate. It is not associated with diaphoresis, nausea or vomiting. States he called his daughter who came over to his house and checked his blood pressure. She found his blood pressure to be 80 systolic and the patient reported he was feeling lightheaded. EMS was called and patient was transported to the ED for further evaluation. The patient did take 1 baby aspirin prior to EMS arrival and was given 3 baby aspirins upon their arrival. He is not currently having any chest pain and has not had any chest pain since. He denies cough or congestion, fever. He is now complaining of some epigastric and periumbilical abdominal pain. He denies numbness or tingling to his extremities. He denies dysuria or hematuria, nausea vomiting, fever. He does endorse some diarrhea over the past few days and states his last episode was yesterday. He has not had a bowel movement today. Of note, the patient was admitted on 03/31/2020 to 24 and discharged on 04/05/2020 for for hypovolemia shock. He was seen in our emergency department for altered mental status and was found have a contusion of the abdominal wall. He was given a large amount of fluid bolus and started on Levophed. He was discharged home a few days later and stable condition. His bonbon cream warmer was Dr. Gaxiola who has since retired. He is supposed to be following up with [facility] cardiology group. <Jasmin Echols PA-C - Last Filed: 04/25/24 00:15> Related Data Home Medications: Home Medications Medication Instructions Recorded Confirmed aspirin 81 mg tablet 81 mg PO DAILY 08/03/20 04/25/24 atorvastatin 80 mg tablet 40 mg PO HS 08/03/20 04/25/24 bupropion HCl 150 mg tablet,12 hr 150 mg PO DAILY 08/03/20 04/25/24 sustained-release duloxetine 60 mg capsule,delayed 60 mg PO Q12H 08/03/20 04/25/24 release finasteride 5 mg tablet 5 mg PO DAILY 08/03/20 04/25/24 insulin aspart U-100 100 unit/mL 5 unit subcut TIDWM 08/03/20 04/25/24 (3 mL) subcutaneous pen (Novolog FlexPen U-100 Insulin aspart) isosorbide mononitrate 60 mg 60 mg PO DAILY 08/03/20 04/25/24 tablet,extended release 24 hr nitroglycerin 0.4 mg sublingual 0.4 mg sublingual Q5M PRN Chest 08/03/20 04/25/24 tablet Pain terazosin 5 mg tablet 5 mg PO DAILY 08/03/20 04/25/24 tramadol 50 mg tablet 50 mg PO Q6H PRN Pain (Scale Score 08/03/20 04/25/24 4-6) atenolol 25 mg tablet 12.5 mg PO DAILY 03/31/24 04/25/24 hydroxyzine HCl 10 mg tablet 20 mg PO HS 03/31/24 04/25/24 levothyroxine 50 mcg tablet 50 mcg PO DAILY 03/31/24 04/25/24 (Synthroid) melatonin 3 mg tablet 9 mg PO HS PRN Insomnia 03/31/24 04/25/24 methocarbamol 500 mg tablet 500 mg PO TID PRN Muscle Pain 03/31/24 04/25/24 mirabegron 50 mg tablet,extended 50 mg PO DAILY 03/31/24 04/25/24 release 24 hr pantoprazole 40 mg tablet,delayed 40 mg PO QAM 03/31/24 04/25/24 release (Protonix) sodium bicarbonate 650 mg tablet 650 mg PO DAILY 03/31/24 04/25/24 trospium 20 mg tablet 20 mg PO Q12H 03/31/24 04/25/24 <Jasmin Echols PA-C - Last Filed: 04/25/24 00:15> Allergies/Adverse Reactions: Allergies Allergy/AdvReac Type Severit
[2024-04-24] MEDS: SODIUM CHLORIDE 0.9% IV 1,000 ML 999 ML IV CONT ×2 (19:50→20:52)
[2024-04-24 20:23] LABS: Alanine Aminotransferase 8 U/L (6-50); Albumin Level 3.7 g/dL (3.5-5.1); Alkaline Phosphatase 115 U/L (38-126); Anion Gap 6 mmol/L (4-12); Aspartate Amino Transferase 20 U/L (17-59); Bilirubin,Total 0.7 mg/dL (0.2-1.3); Blood Urea Nitrogen 47 mg/dL (9-20); Calcium 9.7 mg/dL (8.4-10.2); Carbon Dioxide 25 mmol/L (22-30); Chloride 107 mmol/L (98-107); Estimated CRCL calculation 32 ml/min; Estimated Glomerular Filt Rate 35; Glucose 105 mg/dL (65-110); Lipase 29 U/L (23-300); Potassium 4.5 mmol/L (3.4-5.0); Sodium 138 mmol/L (137-145)
[2024-04-24 20:26] LABS: Prothrombin Time 13.8 Seconds (11.1-14.7)
[2024-04-24 20:26] LABS: Basophils Percent Auto 0.3 % (0.2-1.2); Eosinophils Absolute Auto 0.5 K/mm3 (0-0.3); Eosinophils Percent Auto 7.2 % (0-4.4); Hematocrit 31.5 % (42.0-52.0); Hemoglobin 10.1 g/dL (14.0-18.0); Immature Granulocyte Absolute 0.07 K/mm3 (0.00-0.031); Immature Granulocyte Percent A 0.9 % (0-0.5); Lymphocytes Percent Auto 25.3 % (18.3-44.2); Mean Corpuscular HGB Conc 32.1 g/dl (32-36); Mean Corpuscular Hemoglobin 28.5 pg (26-34); Mean Platelet Volume 9.3 fl (7.4-10.4); Monocytes Absolute Auto 0.8 K/mm3 (0.1-0.6); Neutrophils Absolute Auto 4.2 K/mm3 (1.3-6.7); Neutrophils Percent Auto 56.3 % (45.5-73.1); Platelet Count Result 193 k/mm3 (150-375); Red Blood Count 3.54 M/mm3 (4.6-6.20); Red Cell Distribution Width 14.4 % (11.5-14.5); White Blood Count 7.5 K/mm3 (4.5-10.0)
[2024-04-24 20:27] LABS: Partial Thromboplastin Time 28.1 Seconds (22.3-36.8)
[2024-04-24 20:31] LABS: NT Pro B Type Natriuretic Pept 366 pg/mL (19.9-100); Troponin I < 0.012 ng/mL (0.000-0.034)
[2024-04-24 21:20] VITALS: BP 164/95; PULSE 84; RESP 18; O2SAT 99
[2024-04-24 21:39] LABS: Appearance Urine Cloudy (Clear); Bacteria Urine None Seen /hpf; Bilirubin Urine Negative (Negative); Blood Urine Negative (Negative); Color Urine Yellow (Yellow); Glucose Urine UA Negative (Negative); Ketones Urine 1+ mg/dL (Negative); Leukocyte Esterase Ur Negative LEU/UL (Negative); Nitrate Urine Negative (Negative); Protein Urine Negative (Negative); RBC Urine 0-2 /hpf (0-2); Specific Grav Ur 1.035 (1.001-1.035); Squamous Epithelial Cell Urine Few /hpf (Few); Urobilinogen Urine 0.2 mg/dL (<2.0); WBC Urine 0-5 /hpf (0-3)
[2024-04-24 21:45] LABS: Add Urine Microscopic? YES
[2024-04-24 23:57] LABS: Troponin I < 0.012 ng/mL (0.000-0.034)
[2024-04-25] VITALS (14 sets, daily range): BP systolic 97–129; BP diastolic 54–71; PULSE 73–91; RESP 16–20; TEMP 36.4–36.9; O2SAT 96–100; BMI 27.3; BMI 27.7
--- NOTE | 2024-04-25 00:16 | ECG_ITS ---
Test Date: 2024-04-25 00:21:37 Measurements Intervals [place] Rate: 78 P: 51 AK: 235 QRS: 41 QRSD: 111 T: 10 QT: 377 QTc: 431 Interpretive Statements SINUS RHYTHM WITH FIRST DEGREE AV BLOCK INTRAVENTRICULAR CONDUCTION DELAY CONSIDER INFERIOR INFARCT, AGE INDETERMINATE ABNORMAL ECG Compared to ECG 04/24/2024 19:59:43 NO SIGNIFICANT CHANGE Electronically Signed On 04-25-2024 07:54:41 CDT by Derek Kaur D.O.
--- NOTE | 2024-04-25 01:00 | PC.NURSE ---
This patient, Ronald Medellin, was admitted to IMU Room 201-01. Patient/family oriented to hospital policies and general routines including ID bracelet, bed and alarms, visiting hours, pain management, procedures, bathroom and other care routines, personal items, smoking policy, room service/diet, and visiting hours. Information on how to activate the Rapid Response Team has been discussed. Patient/Family are encouraged to report perceived risks to care and to ask questions if they do not understand what they are told or what they should do.
[2024-04-25 02:08] LABS: Hematocrit 31.5 % (42.0-52.0); Mean Corpuscular HGB Conc 31.7 g/dl (32-36); Mean Corpuscular Hemoglobin 28.4 pg (26-34); Mean Corpuscular Volume 89.5 fl (80-100); Mean Platelet Volume 8.8 fl (7.4-10.4); Platelet Count Result 193 k/mm3 (150-375); Red Blood Count 3.52 M/mm3 (4.6-6.20); Red Cell Distribution Width 14.6 % (11.5-14.5); White Blood Count 6.9 K/mm3 (4.5-10.0)
[2024-04-25 02:15] LABS: Anion Gap 6 mmol/L (4-12); Blood Urea Nitrogen 41 mg/dL (9-20); Calcium 9.4 mg/dL (8.4-10.2); Carbon Dioxide 23 mmol/L (22-30); Chloride 110 mmol/L (98-107); Estimated CRCL calculation 35 ml/min; Estimated Glomerular Filt Rate 39; Glucose 80 mg/dL (65-110); Magnesium 1.9 mg/dL (1.6-2.3); Potassium 4.8 mmol/L (3.4-5.0); Sodium 139 mmol/L (137-145)
[2024-04-25 02:27] LABS: Troponin I < 0.012 ng/mL (0.000-0.034)
[2024-04-25 07:57] LABS: Glucose Point of Care 72 mg/dl (65-105)
[2024-04-25] MEDS: ASPIRIN 81 MG ENTERIC TABLET PO (09:17)
[2024-04-25 11:45] LABS: Glucose Point of Care 93 mg/dl (65-105)
--- NOTE | 2024-04-25 13:23 | PM.IMHP ---
H&P: HPI History of Present Illness Date/Time: 04/25/24 13:23 Chief Complaint: Chest pain Narrative: ER-HPI narrative: 74-year-old male with a history of CAD, s/p CABG x4, CKD, hyperlipidemia, hypertension, hypothyroidism, MARLENY presents to the emergency department for chest pain. Patient states he went to the grocery store and got a large pack of water bottles. States he moved or bowels 3 times and each time felt short of breath, or on the 3rd attempt to move water bottles he had a sharp pinpoint chest pain to the left anterior aspect of his chest. States that lasted 2nd and self-resolved. It did not radiate. It is not associated with diaphoresis, nausea or vomiting. States he called his daughter who came over to his house and checked his blood pressure. She found his blood pressure to be 80 systolic and the patient reported he was feeling lightheaded. EMS was called and patient was transported to the ED for further evaluation. The patient did take 1 baby aspirin prior to EMS arrival and was given 3 baby aspirins upon their arrival. He is not currently having any chest pain and has not had any chest pain since. He denies cough or congestion, fever. He is now complaining of some epigastric and periumbilical abdominal pain. He denies numbness or tingling to his extremities. He denies dysuria or hematuria, nausea vomiting, fever. He does endorse some diarrhea over the past few days and states his last episode was yesterday. He has not had a bowel movement today. Of note, the patient was admitted on 03/31/2020 to 24 and discharged on 04/05/2020 for for hypovolemia shock. He was seen in our emergency department for altered mental status and was found have a contusion of the abdominal wall. He was given a large amount of fluid bolus and started on Levophed. He was discharged home a few days later and stable condition. His airport traffic controller was Dr. Gaxiola who has since retired. He is supposed to be following up with [facility] cardiology group patient is a 74 y/o male with significant cardiac history with CABGx4 presented with CP, while he was lifting a case containing 36 bottles of water and pain persisted which prompted patient to present to the ER. Today patient stats CP has resolved, and his 3 sets of cardiac enzymes are negative and he wants to go home. Because of patient significant cardiac history and he has not seen his airport traffic controller for sometime and his airport traffic controller is no longer the group, he wants cardiology consult for further evaluation before going home, will consult airport traffic controller and further recommendation to follow. Patient is admitted as observation status. Review of Systems Review of Systems: CONSTITUTIONAL: Denies fever, chills, or sweats. EYES: Denies visual changes, redness, or discharge. ENT: Denies rhinorrhea, congestion, sore throat, or otalgia. CARDIOVASCULAR: see HPI RESPIRATORY: see HPI GASTROINTESTINAL: see HPI GENITOURINARY: Denies dysuria or hematuria. SKIN: Denies rash or itching. MUSCULOSKELETAL: Denies back pain, joint pain, or myalgia. NEUROLOGIC: Denies headache, numbness, or weakness. PSYCHIATRIC: Denies anxiety or depression. [facility] Past Medical History Medical History (Updated 04/25/24 @ 13:37 by Neeta eRyna MD) BPH (benign prostatic hyperplasia) Presumed as the patient is on terazosin and finasteride CAD (coronary artery disease) Carpal tunnel syndrome, bilateral CKD (chronic kidney disease) stage 3, GFR 30-59 ml/min Hyperlipidemia Hypertension Hypothyroidism Morbid obesity Patient used to weigh 127 kg in 2020 down to 87 kg current 03/2024 MARLENY (obstructive sleep apnea) Noncompliant with CPAP Surgical History Surgical History S/P CABG x 4 Family History Family History (Updated 04/25/24 @ 01:10 by Bree Gonsalez RN) Daughter No problems noted. Mother Acute myocardial infarction Uterine cancer
--- NOTE | 2024-04-25 14:12 | PM.CNCAR ---
Assessment and Plan Assessment and plan (1) Chest pain: Qualifiers: Chest pain type: unspecified Qualified Code(s): R07.9 - Chest pain, unspecified Code(s): R07.9 - Chest pain, unspecified Status: Acute Plan This is a 74-year-old man with coronary disease he has a chronic total occlusion of the right coronary artery with [id number] collateral filling. This is been known to be the case since 2008 according to the notes from our records. He enters the hospital with some chest pain that appears to be musculoskeletal was very brief and atypical sounding not suggestive of myocardial ischemia. By exam he is stable and there is no evidence of acute coronary syndrome. For some reason there is note on his chart of previous coronary bypass surgery which is erroneous. I will be happy to continue to see this man in the office routinely for follow-up of his chronic stable coronary artery disease but he does not need to remain in the hospital for any cardiac reason at this time. Jose Luis Ca MD [facility] History of Present Illness History of Present Illness Consult date/time: 04/25/24 14:12 Reason For Visit: Chest pain Narrative: This is a 74-year-old man I am seeing at the request of the hospitalist today because of chest pain. He is not known to me prior to this consultation. He has a history of coronary artery disease and was previously followed in our office by Dr. Mena but has not seen him since 2020 because the patient says was doing well and did not come in for subsequent follow-up. He came to the emergency room yesterday evening at the request and advice of his daughter who is a nurse that works here and states that he was having some chest pain after he lifted a heavy [place] of 36 water bottles from 1 location to another and felt some sharp pinching sensation in the center of his chest which lasted for just a moment. Following that he had some lightheadedness upon standing and some shortness of breath which have since resolved. He came to the emergency room where he was evaluated and admitted to the hospital. Since admission he has been feeling well his troponin levels do not show any evidence of acute myocardial injury and his electrocardiogram is essentially unremarkable. His cardiac history is that he is known to have a chronic total occlusion of his right coronary artery with no significant left coronary disease and he has left to right collateral filling. This was apparently identified angiographically back in 1998. Once again his last appointment with our office was in 2020. Curiously the emergency room notes and the H and P in the chart indicate that he has a history of a 4 vessel bypass operation. I do not see any evidence of that in the chart. The patient's chest x-ray does not show any sternotomy wires or clips that would be expected in a patient with a previous coronary bypass. The patient has no recollection of having a heart operation. Review of Systems Constitutional: Constitutional: Reports no additional constitutional complaints Eyes: Eyes: Reports no additional eye complaints ENT: Reports system reviewed and no additional complaints, except as documented Cardiovascular: Cardiovascular: Reports as per HPI Respiratory: Respiratory: Reports no additional respiratory complaints Gastrointestinal: Gastrointestinal: Reports no additional gastrointestinal complaints Musculoskeletal: Musculoskeletal: Reports no additional musculoskeletal complaints and Reports as per HPI Integumentary/Breasts: Skin/Breast: Reports system reviewed and no additional complaints, except as docu Neurologic: Reports system reviewed and no additional complaints, except as documented Endocrine: Endocrine: Reports no additional endocrine complaints Hematologic/Lymphatic: Hematologic/Lymphatic: Reports no additional hematologic/lymphatic complaints Allergic/Immunologic: Allergic/Immunologic: Reports no addit
[2024-04-25] MEDS: SODIUM CHLORIDE 0.9% IV 1,000 ML 100 ML IV CONT (14:47)
[2024-04-25 16:03] LABS: Glucose Point of Care 98 mg/dl (65-105)
--- NOTE | 2024-04-25 17:39 | PC.NURSE ---
This patient, Ronald Medellin, was transferred to [facility] on 04/25/24 at 1739. Personal belongings sent with patient. Report given to Brad SUN. Appropriate documentation sent with patient.
--- NOTE | 2024-04-25 17:40 | PC.NURSE ---
This patient, Ronald Medellin, was received from [facility] on 04/25/24 at 1751. Patient/family oriented to unit policies and routines
[2024-04-25] MEDS: hydrOXYzine HCL 10 MG TABLET 20 MG PO (20:07)
[2024-04-25] MEDS: ATORVASTATIN 40 MG TABLET PO (20:08)
[2024-04-25] MEDS: MELATONIN 3 MG TABLET 9 MG PO (20:08)
[2024-04-25] MEDS: DULoxetine HCL 60 MG CAPSULE.DR PO (20:08)
[2024-04-25 20:29] LABS: Glucose Point of Care 84 mg/dl (65-105)
[2024-04-26] VITALS (9 sets, daily range): BP systolic 113–158; BP diastolic 66–78; PULSE 68–88; RESP 17–20; TEMP 36–36.4; O2SAT 98–99
[2024-04-26] MEDS: SODIUM CHLORIDE 0.9% IV 1,000 ML 100 ML IV CONT ×2 (00:54→09:34)
[2024-04-26] MEDS: ONDANSETRON INJ 4 MG/2 ML VIAL IV PUSH (04:57)
[2024-04-26] MEDS: LEVOTHYROXINE SODIUM 50 MCG TABLET PO (05:54)
[2024-04-26 08:36] LABS: Glucose Point of Care 82 mg/dl (65-105)
[2024-04-26 08:56] LABS: Hematocrit 33.2 % (42.0-52.0); Hemoglobin 10.9 g/dL (14.0-18.0); Mean Corpuscular HGB Conc 32.8 g/dl (32-36); Mean Corpuscular Hemoglobin 28.8 pg (26-34); Mean Corpuscular Volume 87.8 fl (80-100); Mean Platelet Volume 9.1 fl (7.4-10.4); Platelet Count Result 192 k/mm3 (150-375); Red Blood Count 3.78 M/mm3 (4.6-6.20); Red Cell Distribution Width 14.2 % (11.5-14.5); White Blood Count 8.9 K/mm3 (4.5-10.0)
[2024-04-26 09:11] LABS: Albumin Level 3.3 g/dL (3.5-5.1); Anion Gap 11 mmol/L (4-12); Blood Urea Nitrogen 32 mg/dL (9-20); Calcium 8.7 mg/dL (8.4-10.2); Carbon Dioxide 21 mmol/L (22-30); Chloride 108 mmol/L (98-107); Estimated CRCL calculation 42 ml/min; Estimated Glomerular Filt Rate 49; Glucose 83 mg/dL (65-110); Magnesium 1.8 mg/dL (1.6-2.3); Phosphorus 3.3 mg/dL (2.5-4.5); Potassium 4.3 mmol/L (3.4-5.0); Sodium 140 mmol/L (137-145)
[2024-04-26] MEDS: SODIUM BICARBONATE TAB 650 MG TABLET PO (09:33)
[2024-04-26] MEDS: TERAZOSIN HCL 5 MG CAPSULE PO (09:33)
[2024-04-26] MEDS: atenoloL 12.5 MG TABLET PO (09:33)
[2024-04-26] MEDS: MIRABEGRON 50 MG ER TABLET PO (09:33)
[2024-04-26] MEDS: FINASTERIDE 5 MG TABLET PO (09:33)
[2024-04-26] MEDS: PANTOPRAZOLE 40 MG TABLET PO (09:33)
[2024-04-26] MEDS: buPROPion HCL SR (12 HR) 150 MG TAB PO (09:33)
[2024-04-26] MEDS: ISOSORBIDE MONONITRATE 60 MG TAB.ER.24H PO (09:33)
[2024-04-26] MEDS: DULoxetine HCL 60 MG CAPSULE.DR PO (09:33)
[2024-04-26] MEDS: ASPIRIN 81 MG ENTERIC TABLET PO (09:33)
--- NOTE | 2024-04-26 10:22 | PM.IMPN ---
Progress Note: A&P Assessment and Plan (1) Chest pain: Qualifiers: Chest pain type: unspecified Qualified Code(s): R07.9 - Chest pain, unspecified Code(s): R07.9 - Chest pain, unspecified Status: Acute Assessment and Plan: patient is a 74 y/o male presented with CP, while he was lifting a case containing 36 bottles of water and pain persisted which prompted patient to present to the ER. Today patient stats CP has resolved, and his 3 sets of cardiac enzymes are negative and he wants to go home. Because of patient significant cardiac history and he has not seen his lubrication equipment servicer for sometime and his lubrication equipment servicer is no longer the group, he wants cardiology consult for further evaluation before going home, will consult lubrication equipment servicer and further recommendation to follow. - was seen per card- no interventions are recommended- will follow up with card outpt. - no chest pain- no sob. (2) YOBANY (acute kidney injury): Code(s): N17.9 - Acute kidney failure, unspecified Status: Acute Assessment and Plan: most likely 2/2 to dehydration, poor PO intake, will gently hydrate the patient and monitor kidney function - cr is downtrending - will need a close f/u with pcp (3) Aortic aneurysm: Qualifiers: Abdominal aorta location: unspecified Aortic location: abdominal aorta Presence of rupture: without rupture Qualified Code(s): I71.40 - Abdominal aortic aneurysm, without rupture, unspecified Code(s): I71.9 - Aortic aneurysm of unspecified site, without rupture Status: Acute Assessment and Plan: Aortic aneurysm measuring 3.6 x 3.7. clinically stable (4) Difficulty urinating: Code(s): R39.198 - Other difficulties with micturition Status: Acute Assessment and Plan: most likely 2/2 BPH as patient is taking finasteride and terazosin will continue Time Spent With Patient Time with patient: 25 - 35 minutes Subjective Date/time seen: 04/26/24 10:22 Interval history: Narrative retrieved from H/P: 74-year-old male with a history of CAD, s/p CABG x4, CKD, hyperlipidemia, hypertension, hypothyroidism, MARLENY presents to the emergency department for chest pain. Patient states he went to the grocery store and got a large pack of water bottles. States he moved or bowels 3 times and each time felt short of breath, or on the 3rd attempt to move water bottles he had a sharp pinpoint chest pain to the left anterior aspect of his chest. States that lasted 2nd and self-resolved. It did not radiate. It is not associated with diaphoresis, nausea or vomiting. States he called his daughter who came over to his house and checked his blood pressure. She found his blood pressure to be 80 systolic and the patient reported he was feeling lightheaded. EMS was called and patient was transported to the ED for further evaluation. The patient did take 1 baby aspirin prior to EMS arrival and was given 3 baby aspirins upon their arrival. He is not currently having any chest pain and has not had any chest pain since. He denies cough or congestion, fever. He is now complaining of some epigastric and periumbilical abdominal pain. He denies numbness or tingling to his extremities. He denies dysuria or hematuria, nausea vomiting, fever. He does endorse some diarrhea over the past few days and states his last episode was yesterday. He has not had a bowel movement today. Of note, the patient was admitted on 03/31/2020 to 24 and discharged on 04/05/2020 for for hypovolemia shock. He was seen in our emergency department for altered mental status and was found have a contusion of the abdominal wall. He was given a large amount of fluid bolus and started on Levophed. He was discharged home a few days later and stable condition. His lubrication equipment servicer was Dr. Gaxiola who has since retired. He is supposed to be following up with [facility] cardiology group patient is a 74 y/o male with significant cardiac
[2024-04-26 11:48] LABS: Glucose Point of Care 90 mg/dl (65-105)
--- NOTE | 2024-04-26 14:16 | PM.DS ---
DS: Admitting Diagnosis Discharge Date 04/26/2024 Admitting Diagnosis Chest pain DS: Discharge Diagnosis Discharge Diagnosis (1) Chest pain: Qualifiers: Chest pain type: unspecified Qualified Code(s): R07.9 - Chest pain, unspecified Code(s): R07.9 - Chest pain, unspecified Status: Acute DS: Summary Hospital Course Hospital Course: 74-year-old male with a history of CAD, s/p CABG x4, CKD, hyperlipidemia, hypertension, hypothyroidism, MARLENY presents to the emergency department for chest pain. Patient states he went to the grocery store and got a large pack of water bottles. States he moved or bowels 3 times and each time felt short of breath, or on the 3rd attempt to move water bottles he had a sharp pinpoint chest pain to the left anterior aspect of his chest. States that lasted 2nd and self-resolved. It did not radiate. It is not associated with diaphoresis, nausea or vomiting. States he called his daughter who came over to his house and checked his blood pressure. She found his blood pressure to be 80 systolic and the patient reported he was feeling lightheaded. EMS was called and patient was transported to the ED for further evaluation. The patient did take 1 baby aspirin prior to EMS arrival and was given 3 baby aspirins upon their arrival. He is not currently having any chest pain and has not had any chest pain since. He denies cough or congestion, fever. He is now complaining of some epigastric and periumbilical abdominal pain. He denies numbness or tingling to his extremities. He denies dysuria or hematuria, nausea vomiting, fever. He does endorse some diarrhea over the past few days and states his last episode was yesterday. He has not had a bowel movement today. Of note, the patient was admitted on 03/31/2020 to 24 and discharged on 04/05/2020 for for hypovolemia shock. He was seen in our emergency department for altered mental status and was found have a contusion of the abdominal wall. He was given a large amount of fluid bolus and started on Levophed. He was discharged home a few days later and stable condition. His c architect was Dr. Gaxiola who has since retired. He is supposed to be following up with [facility] cardiology group patient is a 74 y/o male with significant cardiac history with CABGx4 presented with CP, while he was lifting a case containing 36 bottles of water and pain persisted which prompted patient to present to the ER. Today patient stats CP has resolved, and his 3 sets of cardiac enzymes are negative and he wants to go home. Because of patient significant cardiac history and he has not seen his c architect for sometime and his c architect is no longer the group, he wants cardiology consult for further evaluation before going home, will consult c architect and further recommendation to follow. patient remained clinically stable no CP, patient was seen by cardiology does not need any ischemic work up, patient is doing well and kidney function back to baseline, will discharge home today. Time Spent with Patient Time attestation: Total time spent providing and/or coordinating discharge services: Exam Narrative: CONSTITUTIONAL: Denies fever, chi lls, or sweats. EY ES: Denies visual changes, redness, or discharge. ENT: Denies rhinorrhea , congestion, sore throat, or otalgi a. CARDIOVASCULAR: see HPI RESPIRATO RY: see HPI GASTR OINTESTINAL: see H PI GENITOURINARY: Denies dysuria or hematuria. SKIN: D enies rash or itch ing. MUSCULOSKELET AL: Denies back pa in, joint pain, or myalgia. NEUROLOG IC: Denies headach e, numbness, or we akness. PSYCHIATRI C: Denies anxiety or depression. DS: Data Data Completed and Pending Labs on day of discharge: Labs from last 24 hours 04/26/24 04/26/24 04/26/24 11:29 08:38 08:16 WBC 8.9 RBC 3.78 L Hgb 10.9 L Hct 33.2 L MCV 87.8 MCH 28.8 MCHC 32.8 RDW 14.2
== END 2024-04-26 17:40 | disposition home or self-care (01) ==
LOC: ANHED 23:31 → ANH3MED 04-26 14:15 → ANHIMU 04-28 08:10
PROVIDERS: Admitting Provider General Practice; Emergency Provider Physician Assistant; Visit Provider Family Medicine
DX: R07.9 Chest pain, unspecified (principal); N17.9 Acute kidney failure, unspecified; R10.33 Periumbilical pain; I71.40 Abdominal aortic aneurysm, without rupture, unspecified; R39.198 Other difficulties with micturition; I12.9 Hypertensive chronic kidney disease with stage 1 through stage 4 chronic kidney disease, or unspecified chronic kidney disease; N18.30 Chronic kidney disease, stage 3 unspecified; I25.10 Atherosclerotic heart disease of native coronary artery without angina pectoris; E78.5 Hyperlipidemia, unspecified; E03.9 Hypothyroidism, unspecified; G47.33 Obstructive sleep apnea (adult) (pediatric); Z95.1 Presence of aortocoronary bypass graft; Z79.82 Long term (current) use of aspirin; Z79.4 Long term (current) use of insulin; N40.0 Benign prostatic hyperplasia without lower urinary tract symptoms; F12.90 Cannabis use, unspecified, uncomplicated; Z87.891 Personal history of nicotine dependence
CPT/HCPCS: 36415; 71275; 74174; 80048; 80053; 80069; 81001; 82948; 83690; 83735; 83880; 84484; 85025; 85027; 85610; 85730; 93005; 96361; 96374; 99285; A9270; G0378; J2405; J7030; Q9967

== ENCOUNTER 2024-06-03 13:48 | Emergency (ER) | payer MEDICARE, OTHER, SELFPAY ==
[2024-06-03] VITALS (25 sets, daily range): BP systolic 104–155; BP diastolic 75–87; PULSE 81–90; TEMP 36.6; O2SAT 96–100
--- NOTE | ~2024-06-03 | CT_ITS ---
EXAMINATION: CT abdomen pelvis w con DATE: 06/03/2024 15:39 INDICATION: Lower abdominal pain TECHNIQUE: Computed tomography (CT) of the abdomen and pelvis was performed with 100 mL Omnipaque-350 intravenous contrast. Automated exposure control and iterative reconstruction technique were employe d. The dose-length product was 600.64 mGy-cm. COMPARISON: 04/24/2024 FINDINGS: No significant change in peripheral irregular septal line thickening and some honeycombing at the khalida ateral lung bases consistent with usual interstitial pneumonia (UIP) pattern chronic interstitial ivan g disease with mild associated bronchiectasis. Heart size is normal. Atherosclerotic coronary artery calcifications. No pericardial or pleural effusion. Small sliding-type hiatal hernia. Nodular liver s urface contour consistent with cirrhosis. Gallbladder, spleen, pancreas and bilateral adrenal glands are normal. There are bilateral renal cysts measuring up to 3.1 cm the left kidney. 2 mm stone at the right ureterovesicular junction with mild right hydroureteronephrosis. Bowels including the appendix are normal. Bladder is normal. Mild prostatomegaly. No free intraperitoneal gas or fluid. No patholo gically enlarged abdominal or pelvic lymphadenopathy. There is calcified atherosclerosis of the aorta and many of the other arteries. Mildly aneurysmal dilation of the infrarenal aorta measuring up to 3 .8 x 3.5 cm and which contains a chronic small dissection flap. Left total hip arthroplasty and sever e osteoarthritis at the contralateral right hip. There is also multilevel moderate to severe facet os teoarthritis in the lumbar and lower thoracic spine. IMPRESSION: 1. 2 mm stone at the right ureterovesicular junction with mild right hydroureteronephrosis. 2. Cirrhosis. 2. Small sliding-type hiatal hernia. 4. Likely pattern chronic interstitial lung disease and mild bronchiectasis at the bilateral lung bas es. 5. No significant change in a 3.8 x 3.5 cm fusiform infrarenal abdominal aortic aneurysm with chronic small dissection flap. Reviewed, dictated and finalized at location A. IMPRESSION: 1. 2 mm stone at the right ureterovesicular junction with mild right hydrourete ronephrosis. 2. Cirrhosis. 2. Small sliding-type hiatal hernia. 4. Likely pattern chronic interstitial lung disease and mild bronchiectasis at the bilateral lung bases. 5. No significant change in a 3.8 x 3.5 cm fusiform infrarenal abdominal aortic aneurysm with chronic small dissection flap.
--- NOTE | ~2024-06-03 | XR_ITS ---
XR chest 1V portable Ordering provider: Pedro Ahn MD History: 74 years Male with . N/V . Comparison: None. FINDINGS: MEDIASTINUM: The cardiac silhouette is not enlarged. LUNGS: No effusions or pneumothorax. Fibrotic changes in the lung bases. Pneumonitis cannot be exclud ed. OTHER: No free air under the diaphragm. Degenerative changes of the spine. IMPRESSION: Fibrotic changes in the lung bases. Pneumonitis cannot be excluded. Reviewed, dictated and finalized at location A.
[2024-06-03] MEDS: ONDANSETRON INJ 4 MG/2 ML VIAL IV PUSH (14:50)
[2024-06-03 15:08] LABS: Basophils Percent Auto 0.2 % (0.2-1.2); Eosinophils Absolute Auto 0.1 K/mm3 (0-0.3); Eosinophils Percent Auto 1.7 % (0-4.4); Hematocrit 37.2 % (42.0-52.0); Hemoglobin 11.9 g/dL (14.0-18.0); Immature Granulocyte Absolute 0.06 K/mm3 (0.00-0.031); Immature Granulocyte Percent A 0.7 % (0-0.5); Lymphocytes Absolute Auto 0.92 K/mm3 (0.9-3.2); Lymphocytes Percent Auto 11.3 % (18.3-44.2); Mean Corpuscular Hemoglobin 28.1 pg (26-34); Mean Corpuscular Volume 87.7 fl (80-100); Mean Platelet Volume 9.5 fl (7.4-10.4); Monocytes Absolute Auto 0.5 K/mm3 (0.1-0.6); Monocytes Percent Auto 5.6 % (2.6-8.5); Neutrophils Absolute Auto 6.6 K/mm3 (1.3-6.7); Neutrophils Percent Auto 80.5 % (45.5-73.1); Platelet Count Result 232 k/mm3 (150-375); Red Blood Count 4.24 M/mm3 (4.6-6.20); Red Cell Distribution Width 15.3 % (11.5-14.5); White Blood Count 8.2 K/mm3 (4.5-10.0)
[2024-06-03] MEDS: FAMOTIDINE 20 MG/2 ML VIAL IV PUSH (15:13)
[2024-06-03] MEDS: SODIUM CHLORIDE 0.9% IV 2,000 ML 999 ML IV CONT (15:13)
[2024-06-03 15:20] LABS: Alanine Aminotransferase 9 U/L (6-50); Albumin Level 3.8 g/dL (3.5-5.1); Alkaline Phosphatase 136 U/L (38-126); Anion Gap 9 mmol/L (4-12); Aspartate Amino Transferase 28 U/L (17-59); Bilirubin,Total 0.4 mg/dL (0.2-1.3); Blood Urea Nitrogen 31 mg/dL (9-20); Calcium 9.3 mg/dL (8.4-10.2); Carbon Dioxide 25 mmol/L (22-30); Chloride 106 mmol/L (98-107); Estimated CRCL calculation 33 ml/min; Estimated Glomerular Filt Rate 37; Glucose 159 mg/dL (65-110); Lipase 37 U/L (23-300); Sodium 140 mmol/L (137-145)
[2024-06-03 17:33] LABS: Add Urine Microscopic? YES; Appearance Urine Clear (Clear); Bacteria Urine None Seen /hpf; Bilirubin Urine Negative (Negative); Blood Urine 3+ (Negative); Color Urine Yellow (Yellow); Glucose Urine UA Negative (Negative); Ketones Urine Trace mg/dL (Negative); Leukocyte Esterase Ur Negative LEU/UL (Negative); Nitrate Urine Negative (Negative); Non Pathogenic Casts 0-2; Protein Urine Negative (Negative); Specific Grav Ur 1.022 (1.001-1.035); Squamous Epithelial Cell Urine Occasional /hpf (Few); Urobilinogen Urine 0.2 mg/dL (<2.0); WBC Urine 0-5 /hpf (0-3)
[2024-06-03 17:56] LABS: Influenza A QL RT-PCR Negative (Negative); Influenza B QL RT-PCR Negative (Negative); RSV RNA, RT-PCR Negative (Negative); SARS-CoV-2 RNA PCR Negative (Negative)
--- NOTE | 2024-06-03 18:44 | ED.GENADULT ---
HPI - General Adult General Chief complaint: Abdominal Pain Stated complaint: Abd pain with vomiting & diarrhea Time Seen by Provider: 06/03/24 13:52 History of Present Illness HPI narrative: This is a 74-year-old male presenting ED with chief complaint of abdominal pain. Abdominal pain started today and is bandlike across the center of his abdomen. It is nonradiating, moderate intensity and comes and goes. He has never had pain like this before there are no exacerbating relieving factors. While the patient denies ever having symptoms like this his family at bedside state that he has these symptoms quite frequently. They would describe his nausea vomiting diarrhea as a chronic problem. It is associated with nausea vomiting diarrhea. He also has pain on urination with the patient states is chronic. He denies fevers chills chest pain difficulty breathing or bloody stools. Patient is a daily marijuana user and family's concern about cyclic vomiting. Related Data Home Medications Medication Instructions Recorded Confirmed aspirin 81 mg tablet 81 mg PO DAILY 08/03/20 04/25/24 atorvastatin 80 mg tablet 40 mg PO HS 08/03/20 04/25/24 bupropion HCl 150 mg tablet,12 hr 150 mg PO DAILY 08/03/20 04/25/24 sustained-release duloxetine 60 mg capsule,delayed 60 mg PO Q12H 08/03/20 04/25/24 release finasteride 5 mg tablet 5 mg PO DAILY 08/03/20 04/25/24 insulin aspart U-100 100 unit/mL 5 unit subcut TIDWM 08/03/20 04/25/24 (3 mL) subcutaneous pen (Novolog FlexPen U-100 Insulin aspart) isosorbide mononitrate 60 mg 60 mg PO DAILY 08/03/20 04/25/24 tablet,extended release 24 hr nitroglycerin 0.4 mg sublingual 0.4 mg sublingual Q5M PRN Chest 08/03/20 04/25/24 tablet Pain terazosin 5 mg tablet 5 mg PO DAILY 08/03/20 04/25/24 tramadol 50 mg tablet 50 mg PO Q6H PRN Pain (Scale Score 08/03/20 04/25/24 4-6) atenolol 25 mg tablet 12.5 mg PO DAILY 03/31/24 04/25/24 hydroxyzine HCl 10 mg tablet 20 mg PO HS 03/31/24 04/25/24 levothyroxine 50 mcg tablet 50 mcg PO DAILY 03/31/24 04/25/24 (Synthroid) melatonin 3 mg tablet 9 mg PO HS PRN Insomnia 03/31/24 04/25/24 methocarbamol 500 mg tablet 500 mg PO TID PRN Muscle Pain 03/31/24 04/25/24 mirabegron 50 mg tablet,extended 50 mg PO DAILY 03/31/24 04/25/24 release 24 hr pantoprazole 40 mg tablet,delayed 40 mg PO QAM 03/31/24 04/25/24 release (Protonix) sodium bicarbonate 650 mg tablet 650 mg PO DAILY 03/31/24 04/25/24 trospium 20 mg tablet 20 mg PO Q12H 03/31/24 04/25/24 Allergies Allergy/AdvReac Type Severity Reaction Status Date / Time niacin AdvReac Intermediate Other Verified 06/03/24 13:55 isosorbide dinitrate AdvReac Intermediate Headache Uncoded 06/03/24 13:55 PMFSH Past Medical History Medical History BPH (benign prostatic hyperplasia) Presumed as the patient is on terazosin and finasteride CAD (coronary artery disease) Carpal tunnel syndrome, bilateral CKD (chronic kidney disease) stage 3, GFR 30-59 ml/min Hyperlipidemia Hypertension Hypothyroidism Morbid obesity Patient used to weigh 127 kg in 2019 down to 87 kg current 03/2024 MARLENY (obstructive sleep apnea) Noncompliant with CPAP Surgical History Surgical History S/P CABG x 4 Family History Family History Daughter No problems noted. Mother Acute myocardial infarction Uterine cancer Father Colon cancer Social History Social History Social History: Patient lives with his of approximately 4 years. He used to smoke 2.5 packs of cigarettes per day from the time he was teenager until 2019. He denies any history of heavy alcohol use. He does use marijuana on a daily basis. Code status: Full code Surrogate decision maker: Claudia () Smoking packs per day: 2.5 Smoking ci
[2024-06-03] MEDS: ACETAMINOPHEN 500 MG TABLET 1000 MG PO (19:17)
[2024-06-03] MEDS: oxyCODONE HCL (*CRX) 5 MG TAB IR PO (19:17)
== END 2024-06-03 19:21 | disposition home or self-care (01) ==
PROVIDERS: Emergency Provider Emergency Medicine
DX: N20.0 Calculus of kidney (principal); R11.2 Nausea with vomiting, unspecified; I71.40 Abdominal aortic aneurysm, without rupture, unspecified; Z20.822 Contact with and (suspected) exposure to COVID-19; N40.0 Benign prostatic hyperplasia without lower urinary tract symptoms; I25.10 Atherosclerotic heart disease of native coronary artery without angina pectoris; I12.9 Hypertensive chronic kidney disease with stage 1 through stage 4 chronic kidney disease, or unspecified chronic kidney disease; N18.30 Chronic kidney disease, stage 3 unspecified; E03.9 Hypothyroidism, unspecified; G47.30 Sleep apnea, unspecified
CPT/HCPCS: 36415; 71045; 74177; 80053; 81001; 83690; 85025; 87637; 96361; 96374; 96375; 99284; A9270; J2405; J7030; Q9967

== ENCOUNTER 2025-03-24 04:49 | Inpatient (IN) | payer MEDICARE, OTHER, SELFPAY ==
[2025-03-24] VITALS (32 sets, daily range): BP systolic 139–202; BP diastolic 80–108; PULSE 51–102; RESP 14–25; TEMP 35.8–36.9; O2SAT 97–100; BMI 24.9
--- NOTE | 2025-03-24 | ECHO_ITS ---
Patient Info Name: Ronald Medellin Age: 74 years : 1950 Gender: Male Ht: 70 in Wt: 169 lbs BSA: 1.95 m2 HR: 70 bpm BP: 114 / 68 mmHg Heart Rhythm: Sinus Rhythm Technical Quality: Good Exam Date: 03/24/2025 10:54 AM Patient Status: I Admit Date: 03/24/2025 Exam Type: CA echo doppler color flow Complete two-dimensional, color flow and Doppler transthoracic echocardiogram is performed. Staff Referring Physician: Kaylyn Umanzor Die Storage Clerk: Ana Rosen Attending Provider: Neeta Reyna MD Summary 1. Technically difficult study with limited views. Patient uncooperative during study and ended exam early. 2. Left ventricular chamber dimension is normal. 3. Left ventricular systolic function is normal, estimated at 60-65. 4. There is mildly increased left ventricular wall thickness. 5. The left ventricular diastolic function is grade I diastolic dysfunction. 6. Right ventricular systolic function is normal. 7. There is mild aortic valve regurgitation. 8. There is mild mitral valve regurgitation. 9. There is mild tricuspid valve regurgitation. 10. The prox ascending aorta size is mildly dilated. Left Ventricle Left ventricular chamber dimension is normal. Left ventricular systolic function is normal, estimated at 60-65. There is mildly increased left ventricular wall thickness. The left ventricular diastolic function is grade I diastolic dysfunction. Right Ventricle Right ventricular chamber dimension is normal. Right ventricular systolic function is normal. Left Atria Left atrial chamber dimension is normal. Right Atria Right atrial chamber dimension is normal. Atrial Septum Intact interatrial septum visualized by color flow imaging. Aortic Valve The aortic valve is trileaflet. There is no aortic valve stenosis. There is mild aortic valve regurgitation. There is mild aortic valve calcification. Pulmonic Valve The pulmonic valve is not well visualized. There is trace pulmonic regurgitation. Mitral Valve There is mild mitral valve regurgitation. Tricuspid Valve There is mild tricuspid valve regurgitation. Pericardium/Pleural There is no pericardial effusion. Inferior Vena Cava Inferior vena cava is not well visualized. Aorta The aortic root size at the sinus of Valsalva is normal. The prox ascending aorta size is mildly dilated. Left Ventricular Outflow Tract Name Value Normal LVOT 2D LVOT Diameter 2.1 cm LVOT Doppler LVOT Peak Velocity 94 cm/s LVOT Peak Gradient 4 mmHg LVOT Mean Gradient 2 mmHg LVOT VTI 21 cm LVOT VTI/AV VTI Ratio 0.7 LVOT Stroke Volume 73 ml LVOT CO 5.8 l/min LVOT CI 3.0 l/min/m2 Pulmonic Valve Name Value Normal PV Doppler PV Peak Velocity 107 cm/s PV Peak Gradient 5 mmHg Mitral Valve Name Value Normal MV Diastolic Function MV E Peak Velocity 68 cm/s MV A Peak Velocity 113 cm/s MV E/A 0.6 MV Decel Time (PW) 393 ms MV Annular TDI MV E/e' (Septal) 9.0 MV E/e' (Lateral) 6.4 MV E/e' (Average) 7.7 Tricuspid Valve Name Value Normal TV Regurgitation Doppler TR Peak Velocity 216 cm/s TR Peak Gradient 15 mmHg Estimated PAP/RSVP RV Systolic Pressure 25 mmHg <36 Aortic Valve Name Value Normal AV Doppler AV Peak Velocity 136 cm/s AV Peak Gradient 7 mmHg AV Mean Gradient 4 mmHg AV VTI 31 cm AV Area (Cont Eq VTI) 2.4 cm2 >=3.0 AV Area (Cont Eq Jacob) 2.4 cm2 AV DI (Jacob) 0.69 AV Regurgitation 2D LVOT Area 3.5 cm2 Ventricles Name Value Normal LV Dimensions 2D/MM IVS Diastolic Thickness (2D) 1.2 cm 0.6-1.0 LVID Diastole (2D) 4.9 cm 4.2-5.8 LVIW Diastolic Thickness (2D) 0.7 cm 0.6-1.0 LVID Systole (2D) 3.3 cm 2.5-4.0 LVOT Diameter 2.1 cm LV Mass (2D Cubed) 166.89 g 88.00-224.00 LV Mass Index (2D Cubed) 86 g/m2 49-115 Relative Wall Thickness (2D) 0.30 <=0.42 LV Fractional Shortening/Ejection Fraction 2D/MM LV Fractional Shortening (2D) 32 % 25-43 LV EF (2D Teichholz) 60 % LV Diastolic Volume (4C MOD) 97 ml LV EF (4C MOD) 48 % LV Diastolic Volume (2C MOD) 97 ml LV EF (2C MOD) 63 % LV Diastolic Volume (BP MOD) 100 ml 62-150 LV Diastolic Volume Index (BP MOD) 51 ml/m2 34-74 LV Systolic Volume (BP MOD) 43 ml 21-61 LV Systolic Volume Index (BP MOD) 22 ml/m2 11-31 LV EF (BP MOD) 57 % 52-72 LV Diastolic Length (4C) 8.8 cm LV Systolic Length (4C) 6.6 cm LV Stroke Volume (4C MOD) 46 ml Atria Name Value Normal LA Dimensions LA Volume (4C A-L) 36 ml LA Volume (BP A-L) 45 ml RA Dimensions RA Systolic Major [place] Length (4C) 5.2 cm 2.1-2.7 RA Area (4C) 11.3 cm2 <=18.0 Report Signatures
--- NOTE | ~2025-03-24 | XR_ITS ---
Portable chest x-ray Comparison: 06/03/2024 Clinical History: Chest pain Findings: Mild bibasilar chronic interstitial disease is unchanged. No acute pulmonary abnormality. Cardiomediastinal silhouette is stable. Bones and soft tissues are unremarkable. Impression: No acute abnormality. Mild bibasilar chronic interstitial disease. Reviewed, dictated and finalized at location . Impression: No acute abnormality. Mild bibasilar chronic interstitial disease.
--- NOTE | ~2025-03-24 | CT_ITS ---
Non-contrast Head CT History: Altered mental status COMPARISON: 03/31/2024 Technique: Axial non-contrast imaging of the brain was performed. Dose reduction technique was used on this scan by utilizing automated exposure control and iterative reconstruction technique. The dose -length product (DLP) was 756.67 mGy-cm. Findings: There is no evidence of intracranial hemorrhage, mass lesion, or acute infarct. Brain par enchyma appears normal. The ventricles and subarachnoid spaces are normal in size. The calvarium ap pears normal. The visualized paranasal sinuses and mastoid air cells are clear. Impression: No significant abnormality seen. Reviewed, dictated and finalized at location . Impression: No significant abnormality seen.
--- NOTE | ~2025-03-24 | CT_ITS ---
Clinical Indication: Pain, aneurysm CT Scan of the Chest, Abdomen, and Pelvis with Contrast: Technique: Contiguous sections were acquired throughout the chest, abdomen, and pelvis after intraven ous administration of 100 cc of Omnipaque 350. Dose reduction technique was used on this scan by uti ginaing automated exposure control and iterative reconstruction technique. The dose-length product (DL P) was 1191.77 mGy-cm. Comparison: 06/03/2024 Findings: There is no evidence of any significant mediastinal, hilar or axillary lymphadenopathy. Ascending aor ta measures 4.6 cm in diameter. No aortic dissection. There is no evidence of pleural or pericardial effusion. There is chronic interstitial disease, with basilar and peripheral distribution, with subpleural reti culation and interstitial thickening. The liver, spleen, pancreas, gallbladder, adrenals and kidneys are within normal limits. Infrarenal a bdominal aortic aneurysm measures 3.8 cm in diameter. There are extensive vascular calcifications of the abdominal aorta and iliac vessels. No aortic dissection. No lymphadenopathy. No bowel obstruction or bowel wall thickening. There is no evidence to suggest acute appendicitis. Urinary bladder is unremarkable. No pelvic mass seen. Small right inguinal hernia present containing a small amount of fluid. Impression: 4.6 cm ascending aortic aneurysm. 3.8 cm infrarenal abdominal aortic aneurysm. Mild to moderate chronic interstitial pulmonary disease, as above. Small right inguinal hernia with a small amount of fluid. Reviewed, dictated and finalized at [facility]. Impression: 4.6 cm ascending aortic aneurysm. 3.8 cm infrarenal abdominal aortic aneurysm. Mild to moderate chronic interstitial pulmonary disease, as above. Small right inguinal hernia with a small amount of fluid.
--- NOTE | 2025-03-24 04:48 | ECG_ITS ---
Test Date: 2025-03-24 04:50:59 Measurements Intervals [place] Rate: 70 P: 0 OH: 0 QRS: 87 QRSD: 110 T: 64 QT: 398 QTc: 430 Interpretive Statements SINUS RHYTHM WITH SINUS ARRHYTHMIA WITH FIRST DEGREE AV BLOCK INCOMPLETE LEFT BUNDLE BRANCH BLOCK MINIMAL Q WAVES- INF/LAT LEADS BASELINE ARTIFACT- V3-V6 ABNORMAL ECG COMPARED WITH PRIOR ECG 04-25-24 00:21 INCOMPLETE LEFT BUNDLE BRANCH BLOCK NOW PRESENT Electronically Signed On 03-24-2025 06:28:06 CDT by Derek Kaur D.O.
[2025-03-24 05:05] LABS: Basophils Percent Auto 0.3 % (0.2-1.2); Eosinophils Absolute Auto 0.1 K/mm3 (0-0.3); Eosinophils Percent Auto 0.9 % (0-4.4); Hematocrit 40.2 % (42.0-52.0); Hemoglobin 13.3 g/dL (14.0-18.0); Immature Granulocyte Absolute 0.06 K/mm3 (0.00-0.031); Immature Granulocyte Percent A 0.5 % (0-0.5); Lymphocytes Absolute Auto 2.97 K/mm3 (0.9-3.2); Lymphocytes Percent Auto 23.2 % (18.3-44.2); Mean Corpuscular HGB Conc 33.1 g/dl (32-36); Mean Corpuscular Hemoglobin 28.4 pg (26-34); Mean Corpuscular Volume 85.9 fl (80-100); Monocytes Absolute Auto 0.8 K/mm3 (0.1-0.6); Monocytes Percent Auto 6.5 % (2.6-8.5); Neutrophils Absolute Auto 8.8 K/mm3 (1.3-6.7); Neutrophils Percent Auto 68.6 % (45.5-73.1); Platelet Count Result 263 k/mm3 (150-375); Red Blood Count 4.68 M/mm3 (4.6-6.20); Red Cell Distribution Width 13.7 % (11.5-14.5); White Blood Count 12.8 K/mm3 (4.5-10.0)
[2025-03-24 05:17] LABS: Alanine Aminotransferase 17 U/L (6-50); Albumin Level 4.4 g/dL (3.5-5.1); Alkaline Phosphatase 151 U/L (38-126); Anion Gap 19 mmol/L (4-12); Aspartate Amino Transferase 41 U/L (17-59); Bilirubin,Total 0.9 mg/dL (0.2-1.3); Blood Urea Nitrogen 41 mg/dL (9-20); Carbon Dioxide 13 mmol/L (22-30); Chloride 107 mmol/L (98-107); Estimated CRCL calculation 41 ml/min; Estimated Glomerular Filt Rate 47; Glucose 163 mg/dL (65-110); Lipase 75 U/L (23-300); Potassium 4.4 mmol/L (3.4-5.0); Sodium 139 mmol/L (137-145); Total Protein 7.8 g/dL (6.3-8.2)
[2025-03-24 05:25] LABS: Prothrombin Time 13.4 Seconds (11.1-14.7)
[2025-03-24 05:26] LABS: Partial Thromboplastin Time 26.5 Seconds (22.3-36.8)
[2025-03-24 05:28] LABS: Troponin I < 0.012 ng/mL (0.000-0.034)
--- NOTE | 2025-03-24 05:32 | ED_ITS ---
HPI - Chest Pain General Chief Complaint: Chest Pain Stated Complaint: CP/SOB x 30 min; woke him from sleep Time Seen by Provider: 03/24/25 05:32 Source: patient, EMS and RN notes reviewed Mode of arrival: EMS Limitations: altered mental status History of Present Illness HPI narrative: Patient presents initially with report of severe left-sided chest pain that woke him out of his sleep. He was given 324 mg aspirin and nitro x3 by EMS with no change. He has a history of myocardial infarction at 41 years old but denies having any stents. Patient previously saw death surveys coder but they moved and he had not re-established with anyone. At the time of my exam, patient is acting strangely. He appears restless. He denies any pain: No chest pain abdominal pain. No back or flank pain. No recent travel. He denies any shortness of breath. He states he can't get comfortable. He takes his glasses off and states I don't think these are my glasses followed by My teeth hurt. He is making sounds as if he is nauseated but he states I'm hiccuping. He denies a history of atrial fibrillation. Denies being on anticoagulation. When asked if he followed up regarding his aortic aneurysm he looks bewildered. He does use marijuana and states he smokes it (no edibles) but denies any yesterday before going to bed. Denies any other recreational drugs. Cardiac risk factors HTN: denies but listed in EMR HLD: denies but listed in EMR DM: Yes per patient (not listed in EMR) - denied being on insulin but this is in med list Obese: No Smoker: denies Personal history AK/TIA/CVA: Yes Fam Hx AK in first degree relative <65yo: Denies Related Data Home Medications ?Medication ?Instructions ?Recorded ?Confirmed ?Last Taken ?Type aspirin 81 mg tablet 81 mg PO DAILY 08/03/20 04/25/24 04/24/24 History atorvastatin 80 mg tablet 40 mg PO HS 08/03/20 04/25/24 08/09/20 History bupropion HCl 150 mg tablet,12 hr 150 mg PO DAILY 08/03/20 04/25/24 08/09/20 History sustained-release duloxetine 60 mg capsule,delayed 60 mg PO Q12H 08/03/20 04/25/24 08/09/20 History release finasteride 5 mg tablet 5 mg PO DAILY 08/03/20 04/25/24 08/09/20 History insulin aspart U-100 100 unit/mL 5 unit subcut TIDWM 08/03/20 04/25/24 08/09/20 History (3 mL) subcutaneous pen (Novolog FlexPen U-100 Insulin aspart) isosorbide mononitrate 60 mg 60 mg PO DAILY 08/03/20 04/25/24 08/09/20 History tablet,extended release 24 hr nitroglycerin 0.4 mg sublingual 0.4 mg sublingual Q5M PRN Chest 08/03/20 04/25/24 08/09/20 History tablet Pain terazosin 5 mg tablet 5 mg PO DAILY 08/03/20 04/25/24 08/09/20 History tramadol 50 mg tablet 50 mg PO Q6H PRN Pain (Scale Score 08/03/20 04/25/24 08/09/20 History 4-6) atenolol 25 mg tablet 12.5 mg PO DAILY 03/31/24 04/25/24 Unknown History hydroxyzine HCl 10 mg tablet 20 mg PO HS 03/31/24 04/25/24 Unknown History levothyroxine 50 mcg tablet 50 mcg PO DAILY 03/31/24 04/25/24 Unknown History (Synthroid) melatonin 3 mg tablet 9 mg PO HS PRN Insomnia 03/31/24 04/25/24 Unknown History methocarbamol 500 mg tablet 500 mg PO TID PRN Muscle Pain 03/31/24 04/25/24 Unknown History mirabegron 50 mg tablet,extended 50 mg PO DAILY 03/31/24 04/25/24 Unknown History release 24 hr pantoprazole 40 mg tablet,delayed 40 mg PO QAM 03/31/24 04/25/24 Unknown History release (Protonix) sodium bicarbonate 650 mg tablet 650 mg PO DAILY 03/31/24 04/25/24 Unknown History trospium 20 mg tablet 20 mg PO Q12H 03/31/24 04/25/24 Unknown History Allergies Allergy/AdvReac Type Severity Reaction Status Date / Time niacin AdvReac Intermediate Other Verified 06/03/24 13:55 isosorbide dinitrate AdvReac Intermediate Headache Uncoded 06/03/24 13:55 [facility] Past Medical History Medical History (Updated 03/24/25 @ 07:33 by Kaylyn Umanzor MD) History of myocardial infarct at age less than 60 years 41yo, denies stent Hypothyroidism BPH (benign prostatic hyperplasia) Presumed as the patient is on terazosin and finasteride Carpal tunnel syndrome, bilateral CKD (chronic kidney disease) stage 3, GFR 30-59 ml/min Morbid obesity Patient used to weigh 127 kg in 2019 down to 87 kg current 03/2024 MARLENY (obstructive sleep apnea) Noncompliant with CPAP Hypertension Hyperlipidemia CAD (coronary artery disease) Surgical History Surgical History S/P CABG x 4 Family History Family History Daughter No problems noted. Mother Acute myocardial infarction Uterine cancer Father Colon cancer Social History Social History Social History: Patient lives with his of approximately 4 years. He used to smoke 2.5 packs of cigarettes per day from the time he was teenager until 2019. He denies any history of heavy alcohol use. He does use marijuana on a daily basis. Code status: Full code Surrogate decision maker: Claudia () Smoking packs per day: 2.5 Smoking cigarettes per day: 50.0 Years smoked: 20 Smoking pack-years: 50.00 Smoking status: Former smoker Tobacco type: cigarettes Smoking end date: 10/21/22 Alcohol intake: current Drinks per week: 1 Substance use: current Substance use type: marijuana Other substance usage details: daily marijuana Last use: 03/29/24 Do You Feel Safe in your Home?: Yes Lack of Transportation: No Lack of Food: Never True Current Housing: I Have Housing Concerned About Future Housing: No Difficulty Paying Gas/Electric Bills: No Difficulty Paying for Meds: No Currently Unemployed: No Education: Decline to Answer Difficulty w/ Childcare or Family Care: No Spiritual care concerns: Yes (Syn[employer]) Exam 2 Narrative: GENERAL: Well-nourished, restless, moving around in stretcher. Pale. Thin. HEAD: Normocephalic, atraumatic. EYES: Non injected, non icteric ENT: Nares clear, no rhinorrhea or epistaxis. Gross auditory acuity intact. NECK: Supple. No meningismus. CHEST: Speaking in full sentences. No respiratory distress but tachypneic. HEART: IRRegularly irregular rate and rhythm. Symmetric radial pulses, irregular but strong. ABDOMEN: Soft, nondistended. No rigidity or guarding. Not peritoneal EXTREMITIES: Normal range of motion. No lower extremity edema. SKIN: Warm, dry. Left skin tear on elbow. NEURO: No focal deficits. Alert. Answering questions though not consistently. Following commands. Normal speech without aphasia or dysarthria. PSYCH: Congruent mood and affect. Course Vital Signs Vital signs: Vital Signs Temperature 96.4 F L 03/24/25 04:48 Pulse Rate 92 03/24/25 04:48 Respiratory Rate 24 H 03/24/25 04:48 Blood Pressure 171/108 H 03/24/25 04:48 Pulse Oximetry 98 03/24/25 04:48 Oxygen Delivery Room Air 03/24/25 04:48 Temperature 96.4 F L 03/24/25 04:48 Pulse Rate 83 03/24/25 07:00 Respiratory Rate 14 03/24/25 07:00 Blood Pressure 183/107 H 03/24/25 06:46 Pulse Oximetry 100 03/24/25 07:00 Oxygen Delivery Room Air 03/24/25 05:07 MDM - Chest Pain MDM Narrative Medical decision making narrative: Patient presents initially with report of chest pain. He received nitroglycerin aspirin with no change or relief. History of myocardial infarction. In the emergency department he is afebrile with vital signs notable for hypertension and tachypnea. At the time of my examination he denies any pain. He has a bizarre affect. He appears restless. He denies any pain on review of system. He does take his glasses off and state these aren't my glasses and tells me his teeth hurt. He has an irregularly irregular heart rate both on palpation and on EKG, concerning for atrial fibrillation. He denies any history of atrial fibrillation and none exists in his past medical history in EMR. Thus, this is a new diagnosis He has a leukocytosis and anemia, the anemia stable. Has a lactic acid; IV fluids ordered. Also labetalol in case hypertensive encephalopathy. Patient will require admission. Oncoming ED attending Dr Santana discusses patient with non destructive evaluation manager hospitalist Dr Reyna. IMU . Differential Diagnosis Differential diagnosis: Likely stable angina, unstable angina pectoris, atypical chest pain, st elevation myocardial infarction, chest pain, biliary colic and other (Aortic dissection; hypertensive encephalopathy; infection; drug use; CVA/TIA) Lab Data Attestation: I reviewed the patient's lab results. 03/24/25 04:56 03/24/25 04:56 Labs: Lab Results 03/24/25 03/24/25 Range/Units 04:56 05:55 WBC 12.8 H (4.5-10.0) K/mm3 RBC 4.68 (4.6-6.20) M/mm3 Hgb 13.3 L (14.0-18.0) g/dL Hct 40.2 L (42.0-52.0) % MCV 85.9 (80-100) fl MCH 28.4 (26-34) pg MCHC 33.1 (32-36) g/dl RDW 13.7 (11.5-14.5) % Plt Count 263 (150-375) k/mm3 MPV 9.0 (7.4-10.4) fl Immature Gran % (Auto) 0.5 (0-0.5) % Neut % (Auto) 68.6 (45.5-73.1) % Lymph % (Auto) 23.2 (18.3-44.2) % Howard % (Auto) 6.5 (2.6-8.5) % Eos % (Auto) 0.9 (0-4.4) % Baso % (Auto) 0.3 (0.2-1.2) % Lymph # (Auto) 2.97 (0.9-3.2) K/mm3 Howard # (Auto) 0.8 H (0.1-0.6) K/mm3 Eos # (Auto) 0.1 (0-0.3) K/mm3 Baso # (Auto) 0.0 (0.0-0.1) K/mm3 Abs Immat Gran (auto) 0.06 H (0.00-0.031) K/mm3 Absolute Neuts (auto) 8.8 H (1.3-6.7) K/mm3 Absolute Nucleated RBC 0.000 (0.0-0.012) K/mm3 Nucleated RBC % 0.0 (0.0-0.2) % PT 13.4 (11.1-14.7) Seconds INR 1.0 APTT 26.5 (22.3-36.8) Seconds Sodium 139 (137-145) mmol/L Potassium 4.4 (3.4-5.0) mmol/L Chloride 107 (98-107) mmol/L Carbon Dioxide 13 L (22-30) mmol/L Anion Gap 19 H (4-12) mmol/L BUN 41 H D (9-20) mg/dL Creatinine 1.45 H (0.7-1.3) mg/dL Estim Creat Clear Calc 41 ml/min Estimated GFR 47 L (59 - ) Glucose 163 H (65-110) mg/dL Lactic Acid 4.8 H* (0.7-2.0) mmol/L Calcium 10.0 (8.4-10.2) mg/dL Total Bilirubin 0.9 (0.2-1.3) mg/dL AST 41 (17-59) U/L ALT 17 (6-50) U/L Alkaline Phosphatase 151 H (38-126) U/L Ammonia < 9 L (9-30) umol/L Total Creatine Kinase 163 (55-170) U/L Troponin I < 0.012 (0.000-0.034) ng/mL Total Protein 7.8 (6.3-8.2) g/dL Albumin 4.4 (3.5-5.1) g/dL Lipase 75 (23-300) U/L TSH 1.340 (0.465-4.680) uIU/mL Salicylates 2.6 (2-20) mg/dL Acetaminophen < 10 L (10-30) ug/mL Ethyl Alcohol < 10 (<10) mg/dL ABG Data ABG results: 03/24/25 06:02 Puncture Site Right radial ABG pH 7.437 ABG pCO2 22.7 L* ABG pO2 84.7 ABG PO2/FiO2 Ratio 4.03 ABG HCO3 15.0 L ABG O2 Saturation 96.9 ABG O2 Content 18.1 ABG Base Excess -7.1 A-a Gradient 37.8 Oxyhemoglobin 92.5 Total Hemoglobin 13.9 O2 Delivery Device Not Reportable O2 Liters/Min Not Reportable FiO2 21 Imaging Data Radiologist's impression: Impressions Chest/Abdomen/Pelvis CTA 03/24/25 06:41 Impression: 4.6 cm ascending aortic aneurysm. 3.8 cm infrarenal abdominal aortic aneurysm. Mild to moderate chronic interstitial pulmonary disease, as above. Small right inguinal hernia with a small amount of fluid. Chest X-Ray 03/24/25 06:45 Impression: No acute abnormality. Mild bibasilar chronic interstitial disease. Head CT 03/24/25 06:45 Impression: No significant abnormality seen. ECG Data EKG #1: Attestation: I personally reviewed and interpreted this ECG as follows: ECG completion date: 03/24/25 ECG completion time: 04:50 Interpretation: Although there at times appear to be P-waves that preceded QRS complexes, these are not consistently seen and otherwise the rate is highly variable concerning for atrial fibrillation. Ventricular rate 70. QRS 110. QT/QTC 398/418. Good R-wave progression across the precordial leads. No T-wave inversion. Discharge Plan Discharge Clinical Impression: Encephalopathy, Anemia, Leukocytosis, Chest pain Patient Disposition: Still a Patient Condition: Stable Patient Language: Hungarian Prescriptions: No Action bupropion HCl 150 mg Tablet Sustained-Release 12 Hr 150 mg PO DAILY atorvastatin 80 mg Tablet 40 mg PO HS terazosin 5 mg Tablet 5 mg PO DAILY tramadol 50 mg Tablet 50 mg PO Q6H PRN (Reason: Pain (Scale Score 4-6)) isosorbide mononitrate 60 mg Tablet Extended Release 24 Hr 60 mg PO DAILY nitroglycerin 0.4 mg Tablet, Sublingual 0.4 mg SUBLINGUAL Q5M PRN (Reason: Chest Pain) aspirin 81 mg Tablet 81 mg PO DAILY finasteride 5 mg Tablet 5 mg PO DAILY insulin aspart U-100 [Novolog FlexPen U-100 Insulin] 100 unit/mL (3 mL) Insulin Pen 5 unit SUBCUT TIDWM duloxetine 60 mg Capsule,Delayed Release(Dr/Ec) 60 mg PO Q12H acetaminophen 500 mg tablet 1,000 mg PO TID PRN (Reason: hugo) 7 Days Qty: 42 0RF ondansetron 4 mg tablet,disintegrating 4 mg PO Q8H PRN (Reason: nausea and vomiting) Qty: 30 0RF oxycodone 5 mg tablet 5 mg PO Q4H PRN (Reason: pain) Qty: 14 0RF tamsulosin [Flomax] 0.4 mg capsule 0.4 mg PO DAILY Qty: 30 0RF methocarbamol 500 mg Tablet 500 mg PO TID PRN (Reason: Muscle Pain) atenolol 25 mg Tablet 12.5 mg PO DAILY melatonin 3 mg Tablet 9 mg PO HS PRN (Reason: Insomnia) sodium bicarbonate 650 mg Tablet 650 mg PO DAILY levothyroxine [Synthroid] 50 mcg Tablet 50 mcg PO DAILY pantoprazole [Protonix] 40 mg Tablet,Delayed Release (Dr/Ec) 40 mg PO QAM trospium 20 mg Tablet 20 mg PO Q12H Rx Instructions: administer on an empty stomach mirabegron 50 mg Tablet Extended Release 24 Hr 50 mg PO DAILY hydroxyzine HCl 10 mg Tablet 20 mg PO HS nitroglycerin [Nitrostat] 0.4 mg Tablet, Sublingual 0.4 mg sublingual Q5MIN PRN (Reason: Chest Pain) Qty: 26 0RF Follow-up/Referrals: [facility] [Primary Care Provider] -
--- OUTSIDE RECORDS SUMMARY | 2025-03-24 05:46 | XMS_ITS | Clinical Summary ---
Author Organization [facility] [address] Address [address] [place] [address] Care Team Providers Care Call Person Name Role Phone Diony Nicholson MD Primary Care Provider [phone] Allergies Active Allergy Reactions Criticality Noted Date Comments Isosorbide Dinitrate Headache Low Niacin Other (See comments),Flushing (skin) High Hot Flashes Medications atenolol (TENORMIN) 50 mg tablet take 1/2 tablet (25MG) by ORAL route every day 0 1 Active levothyroxine (SYNTHROID, LEVOTHROID) 50 mcg tablet take 1 tablet (50MCG) by oral route every day 0 1 Active isosorbide mononitrate ER (IMDUR) 60 mg 24 hr tablet take 1 tablet (60MG) by oral route every day in the morning [address] (PROTONIX) 20 mg EC tablet take 1 Tablet (20MG) by oral route every day 0 3 Active terazosin (HYTRIN) 5 mg capsule take 1 capsule by oral route every day at bedtime 0 5 Active traMADol (ULTRAM) 50 mg tablet take 1 tablet by oral route every 6 hours as needed 0 0 5 Active atorvastatin (LIPITOR) 80 mg tablet take 0.5 tablet by oral route every day 0 0 5 Active losartan (COZAAR) 100 mg tablet take 0.5 tablet by oral route every day 0 0 4 Active metFORMIN (GLUCOPHAGE) 1,000 mg tablet take 1 tablet (1000MG) by oral route 2 times every day with morning and evening meals 60 0 3 Active insulin aspart (NovoLOG) 100 unit/mL injection inject 20 Unit by Intradermal route every morning 0 0 3 Active insulin glargine (LANTUS) 100 unit/mL injection inject 58 units by Subcutaneous route once at bedtime vial 0 3 Active [id number] a-fish oil 300-1,000 mg capsule Take 2 capsules by mouth 2 (two) times a day Active nitroglycerin (NITRODUR) 0.4 mg/hrIndication s:Chronic Stable Angina Pectoris Place 1 patch on the skin daily. Active buPROPion SR (ZYBAN) 150 mg 12 hr tablet Take 150 mg by mouth daily Active DULoxetine DR (CYMBALTA) 60 mg capsule Take 60 mg by mouth 2 (two) times a day. Active finasteride (PROSCAR) 5 mg tablet Take 5 mg by mouth daily Active methocarbamoL (ROBAXIN) 500 mg tablet Take 500 mg by mouth 4 (four) times a day as needed for muscle spasms Active melatonin tablet Take 9 mg by mouth nightly Active aspirin (Adult Low Dose Aspirin) 81 mg enteric coated tablet Take 1 tablet (81 mg total) by mouth daily 1 Active Active Problems Problem Noted Date Diagnosed Date Morbid obesity with BMI of 40.0-44.9, adult 03/22 Coronary artery disease invo lving alturas coronary artery of alt[place] heart without angina pectoris 05/13/2017 Dyslipidemia associated with type 2 diabetes trista litus 04/10/2016 Overview (01/25/2017): DM type 2 with diabetic dyslipidemia Anemia 04/10/2016 Overview (01/25/2017): Anemia due to other cause, not classified MARLENY on CPAP 09/27/2015 Overview (01/25/2017): MARLENY on CPAP Shortness of breath 03/28/2015 Overview (01/25/2017): Dyspnea Hyperlipidemia 09/22/2014 Overview (01/25/2017): Hyperlipidemia LDL goal < 100 Myocardial infarction 02/02/2013 Overview (01/24/2017): Myocardial infarction Diabetic polyneuropathy 02/02/2013 Overview (01/24/2017): Polyneuropathy in diabetes Hypothyroidism 02/02/2013 Overview (01/25/2017): Hypothyroidism Recurrent major depressive disorder 02/02/2013 Overview (01/25/2017): Major depression, recurrent History of drug abuse 02/02/2013 Overview (01/25/2017): History of drug abuse Diabetic neuropathy 02/02/2013 Overview (01/25/2017): DM type 2, uncontrolled, with neuropathy Hypertension associated with diabetes 02/02/2013 Overview (01/25/2017): Unspecified essential hypertension Posttraumatic stress disorder 02/02/2013 Overview (01/25/2017): PTSD (post-traumatic stress disorder) Controlled type 2 diabetes mellitus without comp lication 02/02/2013 Overview (01/25/2017): DM w/o complication type II Atherosclerosis of coronary artery 02/02/2013 Overview (01/25/2017): CAD (coronary artery disease) Osteoarthritis 02/02/2013 Overview (01/25/2017): Osteoarthritis Class 2 obesity with serious comorbidity and body mass index (BMI) of 35.0 to 35.9 in adult 02/02/2013 Overview (01/26/2017): MORBID OBESITY Resolved Problems Problem Noted Date Diagnosed Date Resolved Date Acquired thrombocytopenia 04/10/2016 Overview (01/25/2017): Other secondary thrombocytopenia Immunizations Immunization Administration Dates Next Due Influenza, Trivalent, High D ose, Split, Preservative Free, Intramuscular 07/21/2015,08/21/2014,08/21/2014 Influenza, Trivalent, IM (MDV) 08/04/2012 Pneumococcal Polysaccharide PPV23 09/22/2014,12/2013,02/02/2009 ZOSTER LIVE 02/04/2012 Surgical History Surgery Date Site/Laterality Comments BALLOON ANGIOPLASTY, ARTERY Medical History Medical History Date Comments Hypertension Hypertension Chronic coronary artery disease Coronary Artery Disease Myocardial infarction (HCC) 1990 Myoc ardial infarction Hx Other Medical 1999 Diabetes Type I I Sleep apnea Sleep Apnea Hx Other Medical 1995 heart catheriza tion Diabetes mellitus (HCC) Diabetes Family History Medical History Relation Name Comments Transient ischemic attack Brother Kevin TI A; Heart failure Father CHF; Cause of : CHF Other Mother s/p CABG at 68, cancer; Cause of : s/p CABG at 68, cancer Other Other 1 Family history of Cancer - heart; Diabetes Other 2 Family history of Diabetes mellitus; Other Other 3 Family history of heart bypass; Alcohol abuse Other 4 Family history of Alcoholism; Other Sister Bia diet controlled diabetes; Other Son Rory HLD; Relation Name Status Comments Brother Kevin Alive Father (Age 71) Mother (Age 71) Other 1 Other 2 Other 3 Other 4 Sister Bia Alive Son Rory Alive Social History Tobacco Use Types Packs/Day Years Used Date Smoking Tobacco: Former Smokeless Tobacco: Never Alcohol Use Standard Drinks/Week Comments Yes 0 (1 standard drink = 0.6 oz pur e alcohol) Sex and Gender Information Value Date Recorded Sex Assigned at Not on file 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 Gender Identity Not on file Sexual Orientation Not on file Obstetrics History Last Filed Vital Signs Vital Sign Reading Time Taken Comments Blood Pressure 120/74 01/18/2021 2:16 PM CDT Pulse 74 01/18/2021 2:16 PM CDT Temperature - - Respiratory Rate 14 05/13/2017 2:46 PM CDT Oxygen Saturation 98% 01/18/2021 2:16 PM CDT Inhaled Oxygen Concentration - - Weight 117.8 kg (259 lb 9.6 oz) 01/18/2021 2:16 PM CDT Height 176.5 cm (5' 9.5) 01/18/2021 2:16 PM CDT Body Mass Index 37.79 01/18/2021 2:16 PM CDT Plan of Treatment Not on file Insurance MEDICARE MEDICARE [facility] Care Teams Call Person Relationship Specialty Start Date End Date Diony Nicholson MD [address] [place] [address] PCP - General Internal Medicine 05/05/18
--- OUTSIDE RECORDS SUMMARY | 2025-03-24 05:46 | XMS_ITS | Referral Summary ---
Author Organization [facility] [address] Address [address] [place] [address] Care Team Providers Care Divine Healer Name Role Phone Diony Nicholson MD Primary Care Provider [phone] Allergies Active Allergy Reactions Criticality Noted Date [...] once at bedtime vial 0 3 Active [id number] a-fish oil 300-1,000 mg capsule Take 2 [...] adult 03/22 Coronary artery disease invo lving hughes coronary artery of hughes heart without angina pectoris 05/13/2017 Dyslipidemia associated [...] Pneumococcal Polysaccharide PPV23 09/22/2014,12/2013,02/02/2009 ZOSTER LIVE 02/04/2012 Social History Tobacco Use Types Packs/Day Years Used Date Smoking Tobacco: Former Smokeless Tobacco: Never Alcohol Use Standard Drinks/Week Comments Yes 0 (1 standard drink = 0.6 oz pur e alcohol) Sex and Gender Information Value Date Recorded Sex Assigned at Not on file 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
--- OUTSIDE RECORDS SUMMARY | 2025-03-24 05:46 | XMS_ITS | Clinical Summary ---
Author Organization [email or web address] Address [address] [place] [address] Care Team Providers Care Oil Pumper Name Role Phone Diony Nicholson MD Primary Care Provider [phone] Source Comments [email or web address],non-owned Affiliates and Associated Physician Practices is amultiple site organization consisting of ambulatory clinics and hospital sitesin [place], [place], [place] and [place]. This disclosure is being madepursuant to the Care Everywhere program and may not contain all information available regarding this patient. Last updated 18.[employer] [email or web address] Allergies No known active allergies Medications * Be aware that medications may not be up to date on this document. Alwaysverify current medications with the patient. atenolol (Tenormin) 25 MG tablet Take 0.5 (one-half) tablet by mouth once daily 04/17/20 24 Active atorvastatin (Lipitor) 80 MG tablet Take 0.5 (one-half) tablet by mouth at bedtime 04/17/20 24 Active buPROPion XL 24hr (Wellbutrin-XL) 150 MG tablet Take 1 (one) tablet by mouth every morning 05/22/20 24 Active DULoxetine (Cymbalta) 60 MG capsule Take 1 (one) capsule by mouth 2 times daily 05/22/20 24 Active famotidine (Pepcid) 20 MG tablet Take 1 (one) tablet by mouth 2 times daily 09/30/20 23 Active finasteride (Proscar) 5 MG tablet Take 1 (one) tablet by mouth once daily 04/17/20 24 Active gabapentin (Neurontin) 300 MG capsule Take 1 (one) capsule by mouth 2 times daily 04/17/20 24 Active hydrOXYzine HCl (Atarax) 50 MG tablet Take 1 (one) tablet by mouth at bedtime 05/22/20 24 Active lamoTRIgine (LaMICtal) 100 MG tablet Take 0.5 (one-half) tablet by mouth 2 times daily 05/22/20 24 Active levothyroxine (Synthroid) 50 MCG tablet Take 1 (one) tablet by mouth daily before breakfast 04/17/20 24 Active sodium bicarbonate 650 MG tablet Take 1 (one) tablet by mouth once daily 04/17/20 24 Active terazosin (Hytrin) 5 MG capsule Take 1 (one) capsule by mouth once daily 04/17/20 24 Active trospium ER 24hr (Sanctura XR) 60 MG capsule Take 1 (one) capsule by mouth once daily 04/17/20 24 Active vitamin D3 (Cholecalcifero l) 25 MCG (1000 UNITS) tablet Take 2 (two) tablets by mouth once daily Active diclofenac sodium ([employer] Diclofenac Sodium) 1 % gel Apply 4 (four) g to affected area 4 times daily Active ferrous sulfate 325 (65 FE) MG tablet Take 1 (one) tablet by mouth once daily Active insulin aspart (NovoLOG) pen Inject 0 (zero) Units to 6 (six) Units subcutaneously 3 times daily with meals Active insulin glargine (Lantus/Semglee ) 100 units/mL pen Inject 1 (one) Units to 10 (ten) Units subcutaneously once daily Depends on blood glucose level Active loratadine (Claritin) 10 MG tablet Take 1 (one) tablet by mouth once daily as needed for Runny Nose or Allergies Active melatonin 3 MG tablet Take 3 (three) tablets by mouth at bedtime Active multivitamin daily tablet Take 1 (one) tablet by mouth daily with food Active traMADol (Ultram) 50 MG tablet Take 1 (one) tablet by mouth every 6 hours as needed for Pain Takes with tylenol Active acetaminophen (Tylenol) 325 MG tablet Take 2 (two) tablets by mouth every 6 hours as needed for Fever or Pain Maximum allowable Acetaminophen amount = 4 Grams (4000 mg) / 24 hours. Active Active Problems Problem Noted Date Diagnosed Date SOB (shortness of breath) 09/08/2024 Community acquired pneumonia, unspecified latera lity 09/08/2024 Nausea and vomiting, unspecified vomiting type 1 11/08/2023 Immunizations Immunization Administration Dates Next Due INFLUENZA VACCINE, ADJUVANTE D, QUADR. (FLUAD QUADRIVALENT; 65Y+) (AIIV4) 09/10/2024 Social History Tobacco Use Types Packs/Day Years Used Date Smoking Tobacco: Former Cigarettes Smokeless Tobacco: Never Tobacco Cessation:Counseling Given: Not Answered Alcohol Use Standard Drinks/Week Comments Not Currently 0 (1 standard drink = 0.6 oz pur e alcohol) AUDIT-C Answer Date Recorded Q1: How often do you have a drink containing alc ohol? Monthly or less 09/08/2024 Q2: How many drinks containi ng alcohol do you have on a typical day when you are drinking? 1 or 2 09/08/2024 Q3: How often do you have si x or more drinks on one occasion? Never 09/08/2024 Overall Financial Resource Strain (CARDIA) Answe r Date Recorded How hard is it for you to pa y for the very basics like food, housing, medical care, and heating? Not hard at all 09/08/2024 [facility] - Occupational Stress Questionnaire Answer Date Recorded Do you feel stress - tense, restless, nervous, or anxious, or unable to sleep at night because your mind is troubled all the time - these days? Only a little 09/08/2024 Hunger Vital Sign Answer Date Recorded Within the past 12 months, y ou worried that your food would run out before you got the money to buy more. Never true 09/08/20 24 Within the past 12 months, t he food you bought just didn't last and you didn't have money to get more. Never true 09/08/2024 PRAPARE - Transportation Answer Date Re corded In the past 12 months, has l ack of transportation kept you from medical appointments or from getting medications? No 08/21 In the past 12 months, has l ack of transportation kept you from meetings, work, or from getting things needed for daily living? No 09/08/2024 Housing Stability Vital Sign Answer Maximino e Recorded In the last 12 months, was t here a time when you were not able to pay the mortgage or rent on time? No 09/08/2024 In the past 12 months, how m any times have you moved where you were living? 0 09/08/2024 At any time in the past 12 m [facility], were you homeless or living in a assisted (including now)? No 09/08/2024 Sex and Gender Information Value Date Recorded Sex Assigned at Not on file Legal Sex Male 1:01 PM CDT Gender Identity Not on file Sexual Orientation Not on file Last Filed Vital Signs Vital Sign Reading Time Taken Comments Blood Pressure 107/46 09/10/2024 7:48 AM WINDOW AND SIDING CRAFTSMAN Pulse 82 09/10/2024 7:48 AM WINDOW AND SIDING CRAFTSMAN Temperature 37.3 C (99.2 F) 09/10/2024 7:48 AM WINDOW AND SIDING CRAFTSMAN Respiratory Rate 18 09/10/2024 7:48 AM WINDOW AND SIDING CRAFTSMAN Oxygen Saturation 94% 09/10/2024 7:48 AM WINDOW AND SIDING CRAFTSMAN Inhaled Oxygen Concentration - - Weight 80.7 kg (178 lb) 09/08/2024 7:43 PM WINDOW AND SIDING CRAFTSMAN Height 177.8 cm (5' 10) 09/08/2024 7:43 PM WINDOW AND SIDING CRAFTSMAN Body Mass Index 25.54 09/08/2024 7:43 PM WINDOW AND SIDING CRAFTSMAN Plan of Treatment Health Maintenance Due Date Last Done Comments COLOGUARD (AGES 45-75) - COLON CA SCREENING 1949 COLON MONITORING 1949 COLONOSCOPY - COLON CA SCREENING 1949 CT COLONOGRAPHY - COLON CA SCREENING 1949 Colorectal Cancer Screening 1949 FIT - COLON CA SCREENING 1949 FLEX SIG - COLON CA SCREENING 1949 MEDICARE AWV 12 MONTHS 1949 HEPATITIS C SCREENING 04/13/1967 DTAP/TDAP/TD VACCINES (1 - Tdap) 1968 PNEUMOCOCCAL VACCINE 50+ (1 of 1 - PCV) 1999 ZOSTER VACCINE (1 of 2) 1999 Respiratory Syncytial Virus (RSV) Vaccine Pt: or over 60 yrs (1 - 1-dose 75+ series) 2024 COVID-19 VACCINE (2023- season) 2024 09/11/2022, 01/03/2021, 12/13/2020 DEPRESSION SCREENING 10/21/2024 INFLUENZA VACCINE Completed 09/10/2024, , 09/03/2022, Additional history exists HEPATITIS B VACCINE Aged Out No longe r eligible based on patient's age to complete this topic HIB VACCINE Aged Out No longer eligi ble based on patient's age to complete this topic HPV VACCINE Aged Out No longer eligi ble based on patient's age to complete this topic MENINGOCOCCAL (Group B) VACCINE SHARED DECISION-MAKING Aged Out No longer eligible based on patient's age to complete this topic MENINGOCOCCAL GROUPS A/C/Y/W VACCINE Aged Out No longer eligible based on patient's age to complete this topic Insurance MEDICARE [facility] Advance Directives * Full Code (Latest Code Status on File) Date Activated Date Inactivated Comments 09/08/2024 7:53 PM 09/10/2024 5:35 PM Care Teams Oil Pumper Relationship Specialty Start Date End Date Diony Nicholson MD [address] [place] [address] PCP - General Internal Medicine 09/08/24
[2025-03-24] MEDS: HYDROmorphone HCL INJ (*CRX) 2 MG/ML VIAL 0.5 MG IV PUSH (05:51)
[2025-03-24 06:09] LABS: Alveolar/Arterial O2 Gradient 37.8 mmHg; Base Excess ABG -7.1 mEq/l (+/-2.0); Fractional Inspired Oxygen 21 %; Oxygen Content ABG 18.1 %vol (16.0-22.0); Oxygen Saturation ABG 96.9 % (95.0-100.0); Oxyhemoglobin 92.5 % THb (90.0-100.0); PO2 ABG 84.7 mmHg (80.0-100.0); PO2 FiO2 Ratio Arterial Blood 4.03 %; Total Hemoglobin 13.9 g/dL (12.0-18.0); pH ABG 7.437 (7.350-7.450)
[2025-03-24 06:12] LABS: Acetaminophen < 10 ug/mL (10-30); Ammonia < 9 umol/L (9-30); Ethanol < 10 mg/dL (<10); Salicylate 2.6 mg/dL (2-20)
[2025-03-24 06:12] LABS: Modified Allen's Test Pass; PCO2 ABG 22.7 mmHg (35.0-45.0); Site Drawn RIGHT RADIAL
[2025-03-24 06:18] LABS: Creatine Kinase 163 U/L (55-170); Lactic Acid Reflex 4.8 mmol/L (0.7-2.0)
[2025-03-24] MEDS: SODIUM CHLORIDE 0.9% IV 1,000 ML 999 ML IV CONT (07:04)
[2025-03-24] MEDS: LABETALOL HCL INJ 100 MG/20 ML VIAL 20 MG IV PUSH (07:07)
--- NOTE | 2025-03-24 07:34 | ECG_ITS ---
Test Date: 2025-03-24 07:38:36 Measurements Intervals [place] Rate: 74 P: 71 DE: 256 QRS: 80 QRSD: 105 T: 46 QT: 419 QTc: 466 Interpretive Statements SINUS RHYTHM WITH SINUS ARRHYTHMIA WITH FIRST DEGREE AV BLOCK INCOMPLETE LEFT BUNDLE BRANCH BLOCK BASELINE ARTIFACT- I, III, AVL ABNORMAL ECG Compared to ECG 03/24/2025 04:50:59 NO SIGNIFICANT CHANGE Electronically Signed On 03-24-2025 07:51:44 CDT by Derek Kaur D.O.
[2025-03-24 07:57] LABS: Add Urine Microscopic? YES; Appearance Urine Clear (Clear); Bacteria Urine None Seen /hpf; Bilirubin Urine Negative (Negative); Blood Urine Negative (Negative); Color Urine Yellow (Yellow); Glucose Urine UA Negative (Negative); Ketones Urine 2+ mg/dL (Negative); Leukocyte Esterase Ur Negative LEU/UL (Negative); Need Manual Microscopic Reviewed; Nitrate Urine Negative (Negative); Protein Urine Trace mg/dL (Negative); RBC Urine 0-2 /hpf (0-2); Specific Grav Ur > 1.045 (1.001-1.035); Squamous Epithelial Cell Urine None Seen /hpf (Few); WBC Urine 0-5 /hpf (0-3)
[2025-03-24 08:02] LABS: Amphetamine Screen Urine Negative (Negative); Barbiturate Screen Urine Negative (Negative); Benzodiazepines Screen Urine Negative (Negative); Cannabinoid Screen Urine Positive (Negative); Cocaine Screen Urine Negative (Negative); Methadone Screen Urine Negative (Negative); Opiate Screen Urine Negative (Negative); Phencyclidine Screen Urine Negative (Negative)
[2025-03-24 08:03] LABS: Reflex Lactic Acid Yes or No Add Lactic
[2025-03-24 08:04] LABS: Troponin I < 0.012 ng/mL (0.000-0.034)
--- NOTE | 2025-03-24 10:08 | ADMGEN ---
This patient, Ronald Medellin, was admitted to IMU Room 202-01. Patient/family oriented to hospital policies and general routines including ID bracelet, bed and alarms, visiting hours, pain management, procedures, bathroom and other care routines, personal items, smoking policy, room service/diet, and visiting hours. Information on how to activate the Rapid Response Team has been discussed. Patient/Family are encouraged to report perceived risks to care and to ask questions if they do not understand what they are told or what they should do.
--- NOTE | 2025-03-24 10:30 | ECG_ITS ---
Test Date: 2025-03-24 10:45:36 Measurements Intervals [place] Rate: 67 P: 80 MI: 233 QRS: 79 QRSD: 115 T: 48 QT: 440 QTc: 465 Interpretive Statements SINUS RHYTHM WITH FIRST DEGREE AV BLOCK WITH OCCASIONAL SUPRAVENTRICULAR PREMATURE COMPLEXES INCOMPLETE LEFT BUNDLE BRANCH BLOCK ABNORMAL ECG Compared to ECG 03/24/2025 07:38:36 NO SIGNIFICANT CHANGE Electronically Signed On 03-24-2025 11:38:28 CDT by Derek Kaur D.O.
[2025-03-24 10:50] LABS: Cholesterol 148 mg/dL (0-200); HDL Direct 58 mg/dL; Triglycerides 81 mg/dL (<150)
[2025-03-24 11:01] LABS: LDL Cholesterol Direct 66 mg/dL
[2025-03-24 11:08] LABS: Magnesium 1.9 mg/dL (1.6-2.3)
[2025-03-24 11:53] LABS: Troponin I < 0.012 ng/mL (0.000-0.034)
--- NOTE | 2025-03-24 12:08 | PM.CNCAR ---
Assessment and Plan Assessment and plan (1) Chest pain: Code(s): R07.9 - Chest pain, unspecified Status: Acute Plan 1. Chest pain, atypical. Reproducible on examination. Troponins negative. EKG without ischemic changes. 2. 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 Hypertension, uncontrolled 4. Hyperlipidemia 5. Hypothyroidism 6. Chronic kidney disease PLAN: -Chest pain is atypical. Troponins are negative, EKG without ischemic changes. Chest pain is reproducible on examination, consistent with a musculoskeletal etiology. Echocardiogram ordered by primary team. If echocardiogram without significant abnormality, no additional cardiac testing recommended. -Blood pressure is uncontrolled. Not on antihypertensives at home. Will start Losartan 25mg once daily, Amlodipine 5mg once daily. -Continue ASA 81mg once daily and statin. History of Present Illness History of Present Illness Consult date/time: 03/24/25 12:08 Requesting physician: Neeta Reyna MD Consult reason: chest pain Reason For Visit: ams,chest pain Narrative: Ronald is a 74 year old male with CAD with known ASSIGNMENT DESK EDITOR of the RCA who presented with chest pain. Patient reports chest pain began after an epsiode of nausea / vomiting. It was sharp and left-sided. Unclear how long it lasted, but he is currently feeling well. EKGs show sinus rhythm with first degree AV block, PACs, no ischemic changes. Troponins are negative x 3. Noted to be hypertensive with SBP as high as 202/83mmHg Review of Systems Review of Systems: All systems reviewed & are unremarkable except as noted in HPI and below (HPI) FOR[facility]LY [facility] Past Medical History Medical History History of myocardial infarct at age less than 59 years 41yo, denies stent Hypothyroidism BPH (benign prostatic hyperplasia) Presumed as the patient is on terazosin and finasteride Carpal tunnel syndrome, bilateral CKD (chronic kidney disease) stage 3, GFR 30-59 ml/min Morbid obesity Patient used to weigh 127 kg in 2019 down to 87 kg current 03/2024 MARLENY (obstructive sleep apnea) Noncompliant with CPAP Hypertension Hyperlipidemia CAD (coronary artery disease) Surgical History Surgical History S/P CABG x 4 Family History Family History Daughter No problems noted. Mother Acute myocardial infarction Uterine cancer Father Colon cancer Social History Social History Social History: Patient lives with his of approximately 4 years. He used to smoke 2.5 packs of cigarettes per day from the time he was teenager until 2019. He denies any history of heavy alcohol use. He does use marijuana on a daily basis. Code status: Full code Surrogate decision maker: Claudia () Smoking packs per day: 2.5 Smoking cigarettes per day: 50.0 Years smoked: 20 Smoking pack-years: 50.00 Smoking status: Former smoker Tobacco type: cigarettes Second hand tobacco smoke exposure: Yes Smoking end date: 10/21/22 Additional smoking assessment comments: quit in 1998 Alcohol intake: never Drinks per week: 1 Substance use: current Substance use type: marijuana Other substance usage details: daily marijuana Last use: 03/29/24 Do You Feel Safe in your Home?: Yes Lack of Transportation: No Lack of Food: Never True Current Housing: I Have Housing Concerned About Future Housing: No Difficulty Paying Gas/Electric Bills: No Difficulty Paying for Meds: No Currently Unemployed: No Education: Bachelor's Degree Difficulty w/ Childcare or Family Care: No Spiritual care concerns: No Meds Home Medications and Allergies Home Medications ?Medication ?Instructions ?Recorded ?Confirmed ?Type atorvastatin 80 mg tablet 40 mg PO HS 08/03/20 03/24/25 History bupropion HCl 150 mg tablet,12 hr 150 mg PO DAILY 08/03/20 03/24/25 History sustained-release duloxetine 60 mg capsule,delayed 60 mg PO Q12H 08/03/20 03/24/25 History release finasteride 5 mg tablet 5 mg PO DAILY 08/03/20 03/24/25 History nitroglycerin 0.4 mg sublingual 0.4 mg sublingual Q5M PRN Chest 08/03/20 03/24/25 History tablet Pain terazosin 5 mg tablet 5 mg PO DAILY 08/03/20 03/24/25 History hydroxyzine HCl 10 mg tablet 20 mg PO HS 03/31/24 03/24/25 History levothyroxine 50 mcg tablet 50 mcg PO DAILY 03/31/24 03/24/25 History (Synthroid) melatonin 3 mg tablet 9 mg PO HS PRN Insomnia 03/31/24 03/24/25 History methocarbamol 500 mg tablet 500 mg PO TID PRN Muscle Pain 03/31/24 03/24/25 History mirabegron 50 mg tablet,extended 50 mg PO DAILY 03/31/24 03/24/25 History release 24 hr pantoprazole 40 mg tablet,delayed 40 mg PO QAM 03/31/24 03/24/25 History release (Protonix) sodium bicarbonate 650 mg tablet 650 mg PO DAILY 03/31/24 03/24/25 History acetaminophen 500 mg tablet 1,000 mg (2 x 500 mg) PO TID PRN 06/03/24 03/24/25 Rx hugo 7 days #42 tabs ondansetron 4 mg disintegrating 4 mg PO Q8H PRN nausea and 06/03/24 03/24/25 Rx tablet vomiting #30 tabs tamsulosin 0.4 mg capsule (Flomax) 0.4 mg PO DAILY #30 caps 06/03/24 03/24/25 Rx Allergies Allergy/AdvReac Type Severity Reaction Status Date / Time niacin AdvReac Intermediate Other Verified 03/24/25 10:16 isosorbide dinitrate AdvReac Intermediate Headache Uncoded 03/24/25 10:16 Vital Signs Vital Signs - 24 hr 03/24/25 04:48 03/24/25 05:07 03/24/25 05:30 Temperature 35.8 C L Pulse Rate 92 60 Respiratory Rate 24 H 16 Blood Pressure 171/108 H 156/94 H Pulse Oximetry 98 100 98 Oxygen Delivery Room Air Room Air 03/24/25 05:49 03/24/25 06:02 03/24/25 06:44 Temperature Pulse Rate 62 74 89 Respiratory Rate 17 19 19 Blood Pressure 202/83 H 184/88 H Pulse Oximetry 97 98 Oxygen Delivery 03/24/25 06:45 03/24/25 06:46 03/24/25 07:00 Temperature Pulse Rate 84 84 83 Respiratory Rate 16 15 14 Blood Pressure 183/107 H Pulse Oximetry 100 100 100 Oxygen Delivery 03/24/25 07:39 03/24/25 07:45 03/24/25 07:58 Temperature Pulse Rate 83 71 83 Respiratory Rate 18 18 18 Blood Pressure 174/95 H Pulse Oximetry 100 100 98 Oxygen Delivery 03/24/25 08:00 03/24/25 08:15 03/24/25 08:16 Temperature Pulse Rate 66 68 75 Respiratory Rate 16 17 14 Blood Pressure Pulse Oximetry Oxygen Delivery 03/24/25 08:33 03/24/25 08:45 03/24/25 09:00 Temperature Pulse Rate 83 71 Respiratory Rate 25 H 16 Blood Pressure 164/80 H Pulse Oximetry Oxygen Delivery 03/24/25 09:12 03/24/25 09:15 03/24/25 09:30 Temperature Pulse Rate 54 L 62 66 Respiratory Rate 16 15 17 Blood Pressure Pulse Oximetry Oxygen Delivery 03/24/25 09:55 03/24/25 11:50 Temperature 36.8 C 36.7 C Pulse Rate 80 70 Respiratory Rate 14 14 Blood Pressure 184/85 H 189/95 H Pulse Oximetry 100 100 Oxygen Delivery Exam Const: General: comfortable and no acute distress HENMT: Mouth: Yes moist mucous membranes Eyes: General: appearance normal, both eyes and all related structures Sclera: sclerae normal Chest: Other: Reproducible chest wall tenderness Resp: Effort & Inspection: normal respiratory effort Cardio: Rate: regular rate Rhythm: regular rhythm Heart sounds: no murmurs Skin: General skin exam: normal color Neuro: Speech: normal speech Psych: Mental Status: mental status grossly normal Affect: normal affect Results Labs and Meds 03/24/25 04:56 03/24/25 04:56 Lab results: Cardiac Enzymes 03/24/25 03/24/25 03/24/25 Range/Units 04:56 07:36 10:23 AST 41 (17-59) U/L Troponin I < 0.012 < 0.012 < 0.012 (0.000-0.034) ng/mL Coagulation 03/24/25 Range/Units 04:56 PT 13.4 (11.1-14.7) Seconds APTT 26.5 (22.3-36.8) Seconds Lipids 03/24/25 Range/Units 10:23 Triglycerides 81 (<150) mg/dL Cholesterol 148 (0-200) mg/dL CBC 03/24/25 Range/Units 04:56 WBC 12.8 H (4.5-10.0) K/mm3 RBC 4.68 (4.6-6.20) M/mm3 Hgb 13.3 L (14.0-18.0) g/dL Hct 40.2 L (42.0-52.0) % Plt Count 263 (150-375) k/mm3 Lymph # (Auto) 2.97 (0.9-3.2) K/mm3 [place] # (Auto) 0.8 H (0.1-0.6) K/mm3 Eos # (Auto) 0.1 (0-0.3) K/mm3 Baso # (Auto) 0.0 (0.0-0.1) K/mm3 Comprehensive Metabolic Panel 03/24/25 Range/Units 04:56 Sodium 139 (137-145) mmol/L Potassium 4.4 (3.4-5.0) mmol/L Chloride 107 (98-107) mmol/L Carbon Dioxide 13 L (22-30) mmol/L BUN 41 H D (9-20) mg/dL Creatinine 1.45 H (0.7-1.3) mg/dL Glucose 163 H (65-110) mg/dL Calcium 10.0 (8.4-10.2) mg/dL AST 41 (17-59) U/L ALT 17 (6-50) U/L Alkaline Phosphatase 151 H (38-126) U/L Total Protein 7.8 (6.3-8.2) g/dL Albumin 4.4 (3.5-5.1) g/dL Intake and Output 03/23/25 03/24/25 03/24/25 23:59 07:59 15:59 Intake Total 1000 Output Total 500 Balance 1000 -500 Intake: IV 1000 Sodium Chloride 0.9% IV 1,000 1000 ml @ 999 mls/hr IV CONT .Q1H1M STA Rx#:[id number] Output: Urine 500 Patient Weight 03/24/25 23:59 Weight 78.8 kg
[2025-03-24] MEDS: amLODIPine BESYLATE 5 MG TABLET PO (12:19)
[2025-03-24] MEDS: LOSARTAN POTASSIUM 25 MG TABLET PO (12:19)
--- NOTE | 2025-03-24 13:04 | P.HP_ITS ---
H&P: HPI History of Present Illness Date/Time: 03/24/25 13:04 Chief Complaint: Chest pain and shortness of breath Narrative: 74-year-old male past medical history of CKD stage 3, MARLENY, hypertension, hyperlipidemia and RI at 41. Presents to the hospital chest pain and shortness of breath. 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 Patient denies any heavy lifting however the pain is reproducible on palpation states that the exact same pain they felt earlier. Patient denies nausea vomiting fever chills. He was given 324 mg aspirin and nitro x3 by EMS with no change. Patient is complaining about heartburn and throat pain this afternoon. In the ED patient has leukocytosis at 12.8, hemoglobin of 13.3, ABG shows a pCO2 of 22.7 and a bicarb of 15.0, anion gap 19, BUN of 41, creatinine of 1.45 which appears to be baseline, lactic acid of 4.8 followed by 2.0, 1st 2 troponins were negative. UA is noninfective, drug screen is positive for cannabinoids. CT chest abdomen pelvis CTA shows aortic aneurysm, abdominal aortic aneurysm, mild to moderate chronic interstitial lung disease, and small right inguinal hernia. CT head shows no acute process. EKG shows sinus she due for screening AV block QTC of 465, echo shows EF 60-65% grade 1 diastolic dysfunction cardiology was consulted. Review of Systems Review of Systems: 12 systems were reviewed and are negativ e except for as per HPI. [facility] Past Medical History Medical History (Updated 03/24/25 @ 15:15 by Sonam Henson APRN) History of myocardial infarct at age less than 59 years 41yo, denies stent Hypothyroidism BPH (benign prostatic hyperplasia) Presumed as the patient is on terazosin and finasteride Carpal tunnel syndrome, bilateral CKD (chronic kidney disease) stage 3, GFR 30-59 ml/min Morbid obesity Patient used to weigh 127 kg in 2019 down to 87 kg current 03/2024 MARLENY (obstructive sleep apnea) Noncompliant with CPAP Hypertension Hyperlipidemia CAD (coronary artery disease) Surgical History Surgical History S/P CABG x 4 Family History Family History Daughter No problems noted. Mother Acute myocardial infarction Uterine cancer Father Colon cancer Social History Social History Social History: Patient lives with his of approximately 4 years. He used to smoke 2.5 packs of cigarettes per day from the time he was teenager until 2019. He denies any history of heavy alcohol use. He does use marijuana on a daily basis. Code status: Full code Surrogate decision maker: Claudia () Smoking packs per day: 2.5 Smoking cigarettes per day: 50.0 Years smoked: 20 Smoking pack-years: 50.00 Smoking status: Former smoker Tobacco type: cigarettes Second hand tobacco smoke exposure: Yes Smoking end date: 10/21/22 Additional smoking assessment comments: quit in 1998 Alcohol intake: never Drinks per week: 1 Substance use: current Substance use type: marijuana Other substance usage details: daily marijuana Last use: 03/29/24 Do You Feel Safe in your Home?: Yes Lack of Transportation: No Lack of Food: Never True Current Housing: I Have Housing Concerned About Future Housing: No Difficulty Paying Gas/Electric Bills: No Difficulty Paying for Meds: No Currently Unemployed: No Education: Bachelor's Degree Difficulty w/ Childcare or Family Care: No Spiritual care concerns: No Meds Home Medications and Allergies Home Medications ?Medication ?Instructions ?Recorded ?Confirmed ?Type atorvastatin 80 mg tablet 40 mg PO HS 08/03/20 03/24/25 History bupropion HCl 150 mg tablet,12 hr 150 mg PO DAILY 08/03/20 03/24/25 History sustained-release duloxetine 60 mg capsule,delayed 60 mg PO Q12H 08/03/20 03/24/25 History release finasteride 5 mg tablet 5 mg PO DAILY 08/03/20 03/24/25 History nitroglycerin 0.4 mg sublingual 0.4 mg sublingual Q5M PRN Chest 08/03/20 03/24/25 History tablet Pain terazosin 5 mg tablet 5 mg PO DAILY 08/03/20 03/24/25 History hydroxyzine HCl 10 mg tablet 20 mg PO HS 03/31/24 03/24/25 History levothyroxine 50 mcg tablet 50 mcg PO DAILY 03/31/24 03/24/25 History (Synthroid) melatonin 3 mg tablet 9 mg PO HS PRN Insomnia 03/31/24 03/24/25 History methocarbamol 500 mg tablet 500 mg PO TID PRN Muscle Pain 03/31/24 03/24/25 History mirabegron 50 mg tablet,extended 50 mg PO DAILY 03/31/24 03/24/25 History release 24 hr pantoprazole 40 mg tablet,delayed 40 mg PO QAM 03/31/24 03/24/25 History release (Protonix) sodium bicarbonate 650 mg tablet 650 mg PO DAILY 03/31/24 03/24/25 History acetaminophen 500 mg tablet 1,000 mg (2 x 500 mg) PO TID PRN 06/03/24 03/24/25 Rx hugo 7 days #42 tabs ondansetron 4 mg disintegrating 4 mg PO Q8H PRN nausea and 06/03/24 03/24/25 Rx tablet vomiting #30 tabs tamsulosin 0.4 mg capsule (Flomax) 0.4 mg PO DAILY #30 caps 06/03/24 03/24/25 Rx Allergies Allergy/AdvReac Type Severity Reaction Status Date / Time niacin AdvReac Intermediate Other Verified 03/24/25 10:16 isosorbide dinitrate AdvReac Intermediate Headache Uncoded 03/24/25 10:16 Vital Signs Vital Signs - 24 hr 03/24/25 04:48 03/24/25 05:07 03/24/25 05:30 Temperature 96.4 F L Pulse Rate 92 60 Respiratory Rate 24 H 16 Blood Pressure 171/108 H 156/94 H Pulse Oximetry 98 100 98 Oxygen Delivery Room Air Room Air 03/24/25 05:49 03/24/25 06:02 03/24/25 06:44 Temperature Pulse Rate 62 74 89 Respiratory Rate 17 19 19 Blood Pressure 202/83 H 184/88 H Pulse Oximetry 97 98 Oxygen Delivery 03/24/25 06:45 03/24/25 06:46 03/24/25 07:00 Temperature Pulse Rate 84 84 83 Respiratory Rate 16 15 14 Blood Pressure 183/107 H Pulse Oximetry 100 100 100 Oxygen Delivery 03/24/25 07:39 03/24/25 07:45 03/24/25 07:58 Temperature Pulse Rate 83 71 83 Respiratory Rate 18 18 18 Blood Pressure 174/95 H Pulse Oximetry 100 100 98 Oxygen Delivery 03/24/25 08:00 03/24/25 08:15 03/24/25 08:16 Temperature Pulse Rate 66 68 75 Respiratory Rate 16 17 14 Blood Pressure Pulse Oximetry Oxygen Delivery 03/24/25 08:33 03/24/25 08:45 03/24/25 09:00 Temperature Pulse Rate 83 71 Respiratory Rate 25 H 16 Blood Pressure 164/80 H Pulse Oximetry Oxygen Delivery 03/24/25 09:12 03/24/25 09:15 03/24/25 09:30 Temperature Pulse Rate 54 L 62 66 Respiratory Rate 16 15 17 Blood Pressure Pulse Oximetry Oxygen Delivery 03/24/25 09:53 03/24/25 09:55 03/24/25 11:50 Temperature 98.2 F 98.1 F Pulse Rate 80 70 Respiratory Rate 14 14 Blood Pressure 184/85 H 189/95 H Pulse Oximetry 100 100 Oxygen Delivery Room Air 03/24/25 12:00 Temperature Pulse Rate Respiratory Rate Blood Pressure Pulse Oximetry Oxygen Delivery Room Air Exam Narrative: General: well appearing, appears stated age. HEENT: normocephalic, atraumatic. Mucous membranes moist. EOMI, PERRLA, bilateral sclera anicteric, no conjunctival injection. Neck supple without JVD, lymphadenopathy, or bruit. Respiratory: clear to ascultation bilaterally. No rales/rhonic/wheezes. Chest wall pain on palpation Cardiovascular: Regular rate and rhythm, normal S1-S2 upon ascultation. No murmurs, rubs, or clicks. PMI is nondisplaced, capillary refill less than 3 second. Abdomen: Soft, round, no pulsatile masses, nondistended and nontender. No rebound, no guarding. No CVA tenderness, no hepatosplenomegaly. Bowel sounds present to all four quadrants. No high pitch or tinkling sounds, resonant to percussion. Extremities: No cyanosis, clubbing, or edema present. Pulses are palpable 2/2. Active ROM to all four extremities. Neuro: Alert and orientated x 4. PERRLA. Cranial nerves 2-12 intact without focal deficit. Skin: Warm, dry, and intact, without rash, erythema, or lesion. Psych: pleasant, cooperative, normal speech, normal affect, no hallucinations, no dysarthia H&P: Results Labs Labs: Short CBC 03/24/25 Range/Units 04:56 WBC 12.8 H (4.5-10.0) K/mm3 Hgb 13.3 L (14.0-18.0) g/dL Hct 40.2 L (42.0-52.0) % Plt Count 263 (150-375) k/mm3 BMP 03/24/25 04:56 Sodium 139 Potassium 4.4 Chloride 107 Carbon Dioxide 13 L BUN 41 H D Creatinine 1.45 H Glucose 163 H Calcium 10.0 Cardiac Enzymes 03/24/25 03/24/25 03/24/25 Range/Units 04:56 05:55 07:36 Total Creatine Kinase 163 (55-170) U/L Troponin I < 0.012 < 0.012 (0.000-0.034) ng/mL 03/24/25 Range/Units 10:23 Total Creatine Kinase (55-170) U/L Troponin I < 0.012 (0.000-0.034) ng/mL Liver Function 03/24/25 Range/Units 04:56 Total Bilirubin 0.9 (0.2-1.3) mg/dL AST 41 (17-59) U/L ALT 17 (6-50) U/L Alkaline Phosphatase 151 H (38-126) U/L Albumin 4.4 (3.5-5.1) g/dL Urine 03/24/25 Range/Units 07:36 Urine Color Yellow (Yellow) Urine Appearance Clear (Clear) Urine pH 5.0 (5.0-9.0) Ur Specific [place] > 1.045 H (1.001-1.035) Urine Protein Trace (Negative) mg/dL Urine Glucose (UA) Negative (Negative) mg/dL Assessment and Plan Assessment and plan (1) Leukocytosis: Code(s): D72.829 - Elevated white blood cell count, unspecified Status: Acute Assessment and Plan: UA negative for infection CTA chest abdomen and pelvis negative for acute findings Head CT negative for acute findings Will repeat CBC morning No infective source identified at this time, will defer antibiotics (2) Lactic acidosis: Code(s): E87.20 - Acidosis, unspecified Status: Acute Assessment and Plan: Resolved, No infective source identified Resolved after 1 L fluid bolus (3) Hypertension: Code(s): I10 - Essential (primary) hypertension Status: Acute Assessment and Plan: Patient started on Norvasc by Cardiology (4) Chest pain: Qualifiers: Chest pain type: unspecified Qualified Code(s): R07.9 - Chest pain, unspecified Code(s): R07.9 - Chest pain, unspecified Status: Acute Assessment and Plan: Seen by cardiology does not believe that it does related to cardiac factors, reproducible on exam Tums for heartburn Continue home Muscle relaxers (5) Aortic aneurysm: Qualifiers: Abdominal aorta location: unspecified Aortic location: abdominal aorta Presence of rupture: without rupture Qualified Code(s): I71.40 - Abdominal aortic aneurysm, without rupture, unspecified Code(s): I71.9 - Aortic aneurysm of unspecified site, without rupture Status: Acute Assessment and Plan: 4.6 cm ascending aortic aneurysm. 3.8 cm infrarenal abdominal aortic aneurysm. Which appear on a previous CTA from 04/24/2024 appear to be stable (6) BPH (benign prostatic hyperplasia): Code(s): N40.0 - Benign prostatic hyperplasia without lower urinary tract symptoms Status: Acute Assessment and Plan: Restart home Proscar and Flomax (7) CAD (coronary artery disease): Code(s): I25.10 - Atherosclerotic heart disease of nome coronary artery without angina pectoris Status: Acute Assessment and Plan: Continue statin, aspirin, Norvasc and Cozaar (8) CKD (chronic kidney disease) stage 3, GFR 30-59 ml/min: Code(s): N18.30 - Chronic kidney disease, stage 3 unspecified Status: Acute Assessment and Plan: Continue bicarb BMP in the morning Quality VTE Prophylaxis VTE prophylaxis: mechanical ordered and pharmacologic ordered Hospitalist MIPS Advance Care Plan I have confirmed that the patient's Advanced Care Plan is present, code status is documented, or surrogate decision maker is listed in patient medical record.: Yes Medication Reconciliation I have utilized all available resources to obtain, update and review the patients current medications (includes all prescriptions, OTC, herbals, cannabis, and nutritional supplements).: Yes
[2025-03-24] MEDS: CALCIUM CARBONATE (TUMS) 500 MG (200 MG ELEMENTAL) PO (15:22)
[2025-03-24] MEDS: DULoxetine HCL 60 MG CAPSULE.DR PO (20:09)
[2025-03-24] MEDS: ATORVASTATIN 40 MG TABLET PO (20:09)
[2025-03-24] MEDS: MAG HYDROX/AL HYDROX/SIMETH 30 ML UDC PO (20:09)
[2025-03-24] MEDS: hydrOXYzine HCL 10 MG TABLET 20 MG PO (20:09)
[2025-03-25] VITALS (12 sets, daily range): BP systolic 97–174; BP diastolic 62–105; PULSE 71–104; RESP 14–20; TEMP 36.5–36.8; O2SAT 92–100
[2025-03-25 04:35] LABS: Hematocrit 45.3 % (42.0-52.0); Hemoglobin 14.5 g/dL (14.0-18.0); Mean Corpuscular Hemoglobin 28.2 pg (26-34); Mean Corpuscular Volume 88.1 fl (80-100); Mean Platelet Volume 9.3 fl (7.4-10.4); Platelet Count Result 260 k/mm3 (150-375); Red Blood Count 5.14 M/mm3 (4.6-6.20); Red Cell Distribution Width 13.8 % (11.5-14.5); White Blood Count 19.3 K/mm3 (4.5-10.0)
[2025-03-25 04:48] LABS: Anion Gap 11 mmol/L (4-12); Blood Urea Nitrogen 44 mg/dL (9-20); Calcium 10.1 mg/dL (8.4-10.2); Carbon Dioxide 26 mmol/L (22-30); Chloride 103 mmol/L (98-107); Estimated CRCL calculation 40 ml/min; Estimated Glomerular Filt Rate 46; Glucose 117 mg/dL (65-110); Magnesium 2.3 mg/dL (1.6-2.3); Potassium 4.5 mmol/L (3.4-5.0); Sodium 140 mmol/L (137-145)
[2025-03-25] MEDS: LEVOTHYROXINE SODIUM 50 MCG TABLET PO (06:06)
[2025-03-25] MEDS: LOSARTAN POTASSIUM 25 MG TABLET PO (08:30)
[2025-03-25] MEDS: amLODIPine BESYLATE 5 MG TABLET PO (08:30)
[2025-03-25] MEDS: FINASTERIDE 5 MG TABLET PO (08:30)
[2025-03-25] MEDS: DULoxetine HCL 60 MG CAPSULE.DR PO ×2 (08:30→21:07)
[2025-03-25] MEDS: PANTOPRAZOLE 40 MG TABLET PO (08:30)
[2025-03-25] MEDS: TERAZOSIN HCL 5 MG CAPSULE PO (08:30)
[2025-03-25] MEDS: MIRABEGRON 50 MG ER TABLET PO (08:30)
[2025-03-25] MEDS: SODIUM BICARBONATE TAB 650 MG TABLET PO (08:30)
[2025-03-25] MEDS: TAMSULOSIN HCL 0.4 MG CAPSULE PO (08:30)
[2025-03-25] MEDS: buPROPion HCL SR (12 HR) 150 MG TAB PO (08:30)
[2025-03-25] MEDS: PIPERACILLN/TAZ 3.375GM/NS50ML 3.375 GM/50 ML BAG IVPB ×3 (10:05→21:08)
--- NOTE | 2025-03-25 16:22 | P.PNIM_ITS ---
Progress Note: A&P Assessment and Plan (1) Leukocytosis: Code(s): D72.829 - Elevated white blood cell count, unspecified Status: Acute Assessment and Plan: UA negative for infection CTA chest abdomen and pelvis negative for acute findings Head CT negative for acute findings Will repeat CBC morning No infective source identified at this time, will defer antibiotics (2) Lactic acidosis: Code(s): E87.20 - Acidosis, unspecified Status: Acute Assessment and Plan: Resolved, No infective source identified Resolved after 1 L fluid bolus (3) Hypertension: Code(s): I10 - Essential (primary) hypertension Status: Acute Assessment and Plan: Patient started on Norvasc by Cardiology (4) Chest pain: Qualifiers: Chest pain type: unspecified Qualified Code(s): R07.9 - Chest pain, unspecified Code(s): R07.9 - Chest pain, unspecified Status: Acute Assessment and Plan: Seen by cardiology does not believe that it does related to cardiac factors, reproducible on exam Tums for heartburn Continue home Muscle relaxers (5) Aortic aneurysm: Qualifiers: Abdominal aorta location: unspecified Aortic location: abdominal aorta Presence of rupture: without rupture Qualified Code(s): I71.40 - Abdominal aortic aneurysm, without rupture, unspecified Code(s): I71.9 - Aortic aneurysm of unspecified site, without rupture Status: Acute Assessment and Plan: 4.6 cm ascending aortic aneurysm. 3.8 cm infrarenal abdominal aortic aneurysm. Which appear on a previous CTA from 04/24/2024 appear to be stable (6) BPH (benign prostatic hyperplasia): Code(s): N40.0 - Benign prostatic hyperplasia without lower urinary tract symptoms Status: Acute Assessment and Plan: Restart home Proscar and Flomax (7) CAD (coronary artery disease): Code(s): I25.10 - Atherosclerotic heart disease of [place] coronary artery without angina pectoris Status: Acute Assessment and Plan: Continue statin, aspirin, Norvasc and Cozaar (8) CKD (chronic kidney disease) stage 3, GFR 30-59 ml/min: Code(s): N18.30 - Chronic kidney disease, stage 3 unspecified Status: Acute Assessment and Plan: Continue bicarb BMP in the morning Plan patient with history of CAD presented with c/o CP and was seen by cardiology and did not suspect ACS and his cardiac echo is essentially normal with EF of 60-65% and grade 1 diastolic dysfunction, today patient denies any CP, stats feel much better compared to when he arrive, however his white counts have jumped 19.3 compared to 12.8 upon arrival, patient has no complaints, has no fever, will monitor patient one more day if the white counts keep rising will initiate work up. will monitor. Subjective Date/time seen: 03/25/25 16:22 Interval history: Chest pain and shortness of breath Narrative: 74-year-old male past medical history of CKD stage 3, MARLENY, hypertension, hyperlipidemia and [place] at 41. Presents to the hospital chest pain and shortness of breath. 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 Patient denies any heavy lifting however the pain is reproducible on palpation states that the exact same pain they felt earlier. Patient denies nausea vomiting fever chills. He was given 324 mg aspirin and nitro x3 by EMS with no change. Patient is complaining about heartburn and throat pain this afternoon. In the ED patient has leukocytosis at 12.8, hemoglobin of 13.3, ABG shows a pCO2 of 22.7 and a bicarb of 15.0, anion gap 19, BUN of 41, creatinine of 1.45 which appears to be baseline, lactic acid of 4.8 followed by 2.0, 1st 2 troponins were negative. UA is noninfective, drug screen is positive for cannabinoids. CT chest abdomen pelvis CTA shows aortic aneurysm, abdominal aortic aneurysm, mild to moderate chronic interstitial lung disease, and small right inguinal hernia. CT head shows no acute process. EKG shows sinus she due for screening AV block QTC of 465, echo shows EF 60-65% grade 1 diastolic dysfunction cardiology was consulted. patient with history of CAD presented with c/o CP and was seen by cardiology and did not suspect ACS and his cardiac echo is essentially normal with EF of 60-65% and grade 1 diastolic dysfunction, today patient denies any CP, stats feel much better compared to when he arrive, however his white counts have jumped 19.3 compared to 12.8 upon arrival, patient has no complaints, has no fever, will monitor patient one more day if the white counts keep rising will initiate work up. will monitor. Review of Systems Review of Systems: 12 systems were reviewed and are negativ e except for as per HPI. Exam Narrative: Patient is comfortable, NAD HEENT: eyes are clear and none icteric LUNGS:CTA HEART: RR S1S2 ABD: BS+, Soft and nontender Lower extremities: no edema SKIN: nonjaundiced Neuro: grossly intact. Objective Data Vital Signs Vital Signs: Vital Signs - 24 hr 03/24/25 20:00 03/24/25 20:00 03/24/25 20:00 Temperature 36.8 C Pulse Rate 99 102 H Respiratory Rate 16 Blood Pressure 178/97 H Pulse Oximetry 99 99 Oxygen Delivery Room Air 03/24/25 20:00 03/24/25 22:00 03/24/25 23:44 Temperature 36.7 C Pulse Rate 96 100 102 H Respiratory Rate 16 16 Blood Pressure 139/89 Pulse Oximetry 99 99 Oxygen Delivery Room Air 03/25/25 00:00 03/25/25 00:00 03/25/25 02:00 Temperature Pulse Rate 93 93 92 Respiratory Rate 16 Blood Pressure Pulse Oximetry 99 Oxygen Delivery Room Air 03/25/25 04:00 03/25/25 04:00 03/25/25 04:00 Temperature 36.7 C Pulse Rate 100 99 99 Respiratory Rate 15 15 Blood Pressure 174/105 H Pulse Oximetry 98 98 Oxygen Delivery Room Air 03/25/25 06:00 03/25/25 07:48 03/25/25 08:00 Temperature 36.5 C Pulse Rate 92 99 99 Respiratory Rate 16 Blood Pressure 146/95 H Pulse Oximetry 99 Oxygen Delivery 03/25/25 08:00 03/25/25 12:20 03/25/25 15:49 Temperature 36.6 C 36.8 C Pulse Rate 99 104 H Respiratory Rate 16 14 20 Blood Pressure 102/68 97/62 L Pulse Oximetry 99 97 98 Oxygen Delivery Room Air Intake/Output Intake/Output: Intake & Output 03/22/25 03/23/25 03/24/25 03/25/25 23:59 23:59 23:59 23:59 Intake Total 1665 690 Output Total 1025 650 Balance 640 40 Meds/Results Medications: Active Medications Generic Name Dose Route Start Last Admin Trade Name Freq PRN Reason Stop Dose Admin Acetaminophen 650 mg 03/24/25 15:18 Acetaminophen 325 Mg Tablet PO Q4H PRN Mild Pain (1-3) or Fever Hydrocodone Bitart/Acetaminophen 1 tab 03/24/25 15:18 Hydrocodone/Acetaminophen (*Crx) 5-325 Mg Tablet PO Q4H PRN Moderate Pain (4-6) Al Hydrox/Mg Hydrox/Simethicone 30 ml 03/24/25 15:18 03/24/25 20:09 Mag Hydrox/Al Hydrox/Simeth 30 Ml Udc PO 30 ml QID PRN Administration Dyspepsia Amlodipine Besylate 5 mg 03/24/25 12:10 03/25/25 08:30 Amlodipine Besylate 5 Mg Tablet PO 5 mg DAILY MARTELL Administration Atorvastatin Calcium 40 mg 03/24/25 21:00 03/24/25 20:09 Atorvastatin 40 Mg Tablet PO 40 mg HS MARTELL Administration Bupropion HCl 150 mg 03/25/25 09:00 03/25/25 08:30 Bupropion Hcl Sr (12 Hr) 150 Mg Tab PO 150 mg DAILY MARTELL Administration Calcium Carbonate 200 mg 03/24/25 15:13 03/24/25 15:22 Calcium Carbonate (Tums) 500 Mg (200 Mg Elemental) PO 200 mg Q6H PRN Administration Indigestion Duloxetine HCl 60 mg 03/24/25 21:00 03/25/25 08:30 Duloxetine Hcl 60 Mg Capsule.Dr PO 60 mg Q12HR MARTELL Administration Enoxaparin Sodium 40 mg 03/25/25 09:00 03/25/25 09:39 Enoxaparin 40 Mg/0.4 Ml Syringe SUB-Q Not Given DAILY MARTELL Finasteride 5 mg 03/25/25 09:00 03/25/25 08:30 Finasteride 5 Mg Tablet PO 5 mg DAILY MARTELL Administration Hydroxyzine HCl 20 mg 03/24/25 21:00 03/24/25 20:09 Hydroxyzine Hcl 10 Mg Tablet PO 20 mg HS MARTELL Administration Piperacillin/Tazobactam/Dextrose 3.375 gm in 50 mls @ 100 mls/hr 03/25/25 10:00 03/25/25 11:19 Zosyn 3.375 Gm/Ns 50 Ml IVPB Infused Q6H MARTELL Infusion Levothyroxine Sodium 50 mcg 03/25/25 06:30 03/25/25 06:06 Levothyroxine Sodium 50 Mcg Tablet PO 50 mcg DAILY@0630 MARTELL Administration Losartan Potassium 25 mg 03/24/25 12:10 03/25/25 08:30 Losartan Potassium 25 Mg Tablet PO 25 mg DAILY MARTELL Administration Methocarbamol 500 mg 03/24/25 15:21 Methocarbamol 500 Mg Tablet PO TID PRN Muscle Pain Mirabegron 50 mg 03/25/25 09:00 03/25/25 08:30 Mirabegron 50 Mg Er Tablet PO 50 mg DAILY MARTELL Administration Nitroglycerin 0.4 mg 03/24/25 15:21 Nitroglycerin Sl 0.4 Mg Tablet SUBLINGUAL Q5M PRN Chest Pain Pantoprazole Sodium 40 mg 03/25/25 09:00 03/25/25 08:30 Pantoprazole 40 Mg Tablet PO 40 mg QAM MARTELL Administration Perflutren Lipid Microsphere 0 ml 03/24/25 09:56 Perflutren Lipid Microspheres 1.5 Ml Vial Diluted To 10 Ml Total Volume IV PUSH 03/27/25 09:57 ONCE PRN adequate visualization Protocol Sodium Bicarbonate 650 mg 03/25/25 09:00 03/25/25 08:30 Sodium Bicarbonate Tab 650 Mg Tablet PO 650 mg DAILY MARTELL Administration Tamsulosin HCl 0.4 mg 03/25/25 09:00 03/25/25 08:30 Tamsulosin Hcl 0.4 Mg Capsule PO 0.4 mg DAILY MARTELL Administration Terazosin HCl 5 mg 03/25/25 09:00 03/25/25 08:30 Terazosin Hcl 5 Mg Capsule PO 5 mg QAM MARTELL Administration Radiology Results: ITS Impressions Chest/Abdomen/Pelvis CTA 03/24/25 06:41 Impression: 4.6 cm ascending aortic aneurysm. 3.8 cm infrarenal abdominal aortic aneurysm. Mild to moderate chronic interstitial pulmonary disease, as above. Small right inguinal hernia with a small amount of fluid. Chest X-Ray 03/24/25 06:45 Impression: No acute abnormality. Mild bibasilar chronic interstitial disease. Head CT 03/24/25 06:45 Impression: No significant abnormality seen. Labs Labs: Laboratory Results - last 24 hr 03/24/25 03/25/25 05:55 03:42 WBC 19.3 H RBC 5.14 Hgb 14.5 Hct 45.3 MCV 88.1 MCH 28.2 MCHC 32.0 RDW 13.8 Plt Count 260 MPV 9.3 Sodium 140 Potassium 4.5 Chloride 103 Carbon Dioxide 26 Anion Gap 11 BUN 44 H Creatinine 1.49 H Estim Creat Clear Calc 40 Estimated GFR 46 L Glucose 117 H Lactic Acid 4.8 H* Calcium 10.1 Magnesium 2.3 Quality VTE Prophylaxis VTE prophylaxis: mechanical ordered and pharmacologic ordered
[2025-03-25] MEDS: ATORVASTATIN 40 MG TABLET PO (21:07)
[2025-03-25] MEDS: hydrOXYzine HCL 10 MG TABLET 20 MG PO (21:07)
[2025-03-26 04:54] LABS: Hematocrit 39.3 % (42.0-52.0); Hemoglobin 12.9 g/dL (14.0-18.0); Mean Corpuscular HGB Conc 32.8 g/dl (32-36); Mean Corpuscular Hemoglobin 28.5 pg (26-34); Mean Corpuscular Volume 86.9 fl (80-100); Mean Platelet Volume 9.8 fl (7.4-10.4); Platelet Count Result 195 k/mm3 (150-375); Red Blood Count 4.52 M/mm3 (4.6-6.20); Red Cell Distribution Width 13.8 % (11.5-14.5)
[2025-03-26 05:16] LABS: Calcium 9.3 mg/dL (8.4-10.2)
[2025-03-26 05:17] LABS: Anion Gap 11 mmol/L (4-12); Blood Urea Nitrogen 60 mg/dL (9-20); Carbon Dioxide 22 mmol/L (22-30); Chloride 104 mmol/L (98-107); Estimated CRCL calculation 30 ml/min; Estimated Glomerular Filt Rate 33; Glucose 118 mg/dL (65-110); Magnesium 2.5 mg/dL (1.6-2.3); Potassium 4.4 mmol/L (3.4-5.0); Sodium 137 mmol/L (137-145)
[2025-03-26] MEDS: PIPERACILLN/TAZ 3.375GM/NS50ML 3.375 GM/50 ML BAG IVPB ×4 (06:02→22:12)
[2025-03-26] MEDS: LEVOTHYROXINE SODIUM 50 MCG TABLET PO (06:02)
--- NOTE | 2025-03-26 06:48 | PC.NURSE ---
This patient, Ronald Medellin, was transferred to [[id number] ] on 03/26/25 at 0648. Personal belongings sent with patient. Report given to [Primo parikh ]. Appropriate documentation sent with patient.
[2025-03-26 07:05] VITALS: BP 106/70; PULSE 97; RESP 16; TEMP 35.9; O2SAT 99
[2025-03-26] MEDS: amLODIPine BESYLATE 5 MG TABLET PO (09:52)
[2025-03-26] MEDS: buPROPion HCL SR (12 HR) 150 MG TAB PO (09:52)
[2025-03-26] MEDS: DULoxetine HCL 60 MG CAPSULE.DR PO ×2 (09:52→20:46)
[2025-03-26] MEDS: TAMSULOSIN HCL 0.4 MG CAPSULE PO (09:52)
[2025-03-26] MEDS: LOSARTAN POTASSIUM 25 MG TABLET PO (09:52)
[2025-03-26] MEDS: FINASTERIDE 5 MG TABLET PO (09:52)
[2025-03-26] MEDS: PANTOPRAZOLE 40 MG TABLET PO (09:52)
[2025-03-26] MEDS: SODIUM BICARBONATE TAB 650 MG TABLET PO (09:52)
[2025-03-26] MEDS: ENOXAPARIN 40 MG/0.4 ML SYRINGE SUB-Q (09:53)
[2025-03-26] MEDS: TERAZOSIN HCL 5 MG CAPSULE PO (10:55)
[2025-03-26] MEDS: MIRABEGRON 50 MG ER TABLET PO (10:55)
[2025-03-26] MEDS: SODIUM CHLORIDE 0.9% IV 1,000 ML 100 ML IV CONT (12:05)
[2025-03-26 14:00] VITALS: BP 114/75; PULSE 93; RESP 18; TEMP 36.2; O2SAT 98
--- NOTE | 2025-03-26 14:34 | P.PNIM_ITS ---
Progress Note: A&P Assessment and Plan (1) Leukocytosis: Code(s): D72.829 - Elevated white blood cell count, unspecified Status: Acute Assessment and Plan: UA negative for infection CTA chest abdomen and pelvis negative for acute findings Head CT negative for acute findings Will repeat CBC morning No infective source identified at this time, will defer antibiotics (2) Lactic acidosis: Code(s): E87.20 - Acidosis, unspecified Status: Acute Assessment and Plan: Resolved, No infective source identified Resolved after 1 L fluid bolus (3) Hypertension: Code(s): I10 - Essential (primary) hypertension Status: Acute Assessment and Plan: Patient started on Norvasc by Cardiology (4) Chest pain: Qualifiers: Chest pain type: unspecified Qualified Code(s): R07.9 - Chest pain, unspecified Code(s): R07.9 - Chest pain, unspecified Status: Acute Assessment and Plan: Seen by cardiology does not believe that it does related to cardiac factors, reproducible on exam Tums for heartburn Continue home Muscle relaxers (5) Aortic aneurysm: Qualifiers: Abdominal aorta location: unspecified Aortic location: abdominal aorta Presence of rupture: without rupture Qualified Code(s): I71.40 - Abdominal aortic aneurysm, without rupture, unspecified Code(s): I71.9 - Aortic aneurysm of unspecified site, without rupture Status: Acute Assessment and Plan: 4.6 cm ascending aortic aneurysm. 3.8 cm infrarenal abdominal aortic aneurysm. Which appear on a previous CTA from 04/24/2024 appear to be stable (6) BPH (benign prostatic hyperplasia): Code(s): N40.0 - Benign prostatic hyperplasia without lower urinary tract symptoms Status: Acute Assessment and Plan: Restart home Proscar and Flomax (7) CAD (coronary artery disease): Code(s): I25.10 - Atherosclerotic heart disease of [place] coronary artery without angina pectoris Status: Acute Assessment and Plan: Continue statin, aspirin, Norvasc and Cozaar (8) CKD (chronic kidney disease) stage 3, GFR 30-59 ml/min: Code(s): N18.30 - Chronic kidney disease, stage 3 unspecified Status: Acute Assessment and Plan: Continue bicarb BMP in the morning Plan patient with history of CAD presented with c/o CP and was seen by cardiology and did not suspect ACS and his cardiac echo is essentially normal with EF of 60-65% and grade 1 diastolic dysfunction, on 03/25 patient denied any CP, stats feel much better compared to when he arrive, however his white counts have jumped 19.3 compared to 12.8 upon arrival, today patient white counts are trending down to 15, he is being treated with zosyn, upon arrival no blood or urine culture were done, his chest x-ray is normal, patient has no complaints, has no fever, will monitor patient one more day if the white counts keep rising will initiate work up. will monitor. patient white counts trending down and clinical symptoms are improving. patient CT scan of abdomen showed 4.6 cm ascending aortic aneurysm and 3.8 cm infrarenal abdominal aortic aneurysm. patient is aware that he has aneurysm but he is not followed by any vascular surgeon, I called [facility] and and sent the films to review for further recommendations. patient remains clinically stable, will monitor Subjective Date/time seen: 03/26/25 14:34 Interval history: Chest pain and shortness of breath Narrative: 74-year-old male past medical history of CKD stage 3, MARLENY, hypertension, hyperlipidemia and [place] at 41. Presents to the hospital chest pain and shortness of breath. 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 Patient denies any heavy lifting however the pain is reproducible on palpation states that the exact same pain they felt earlier. Patient denies nausea vomi ting fever chills. He was given 324 mg aspirin and nitro x3 by EMS with no change. Patient is complaining about heartburn and throat pain this afternoon. In the ED patient has leukocytosis at 12.8, hemoglobin of 13.3, ABG shows a pCO2 of 22.7 and a bicarb of 15.0, anion gap 19, BUN of 41, creatinine of 1.45 which appears to be baseline, lactic acid of 4.8 followed by 2.0, 1st 2 troponins were negative. UA is noninfective, drug screen is positive for cannabinoids. CT chest abdomen pelvis CTA shows aortic aneurysm, abdominal aortic aneurysm, mild to moderate chronic interstitial lung disease, and small right inguinal hernia. CT head shows no acute process. EKG shows sinus she due for screening AV block QTC of 465, echo shows EF 60-65% grade 1 diastolic dysfunction cardiology was consulted. patient with history of CAD presented with c/o CP and was seen by cardiology and did not suspect ACS and his cardiac echo is essentially normal with EF of 60-65% and grade 1 diastolic dysfunction, on 03/25 patient denied any CP, stats feel much better compared to when he arrive, however his white counts have jumped 19.3 compared to 12.8 upon arrival, today patient white counts are trending down to 15, he is being treated with zosyn, upon arrival no blood or urine culture were done, his chest x-ray is normal, patient has no complaints, has no fever, will monitor patient one more day if the white counts keep rising will initiate work up. will monitor. patient white counts trending down and clinical symptoms are improving. patient CT scan of abdomen showed 4.6 cm ascending aortic aneurysm and 3.8 cm infrarenal abdominal aortic aneurysm. patient is aware that he has aneurysm but he is not followed by any vascular surgeon, I called [facility] and and sent the films to review for further recommendations. patient remains clinically stable, will monitor Review of Systems Review of Systems: 12 systems were reviewed and are negativ e except for as per HPI. Exam Narrative: Patient is comfortable, NAD HEENT: eyes are clear and none icteric LUNGS:CTA HEART: RR S1S2 ABD: BS+, Soft and nontender Lower extremities: no edema SKIN: nonjaundiced Neuro: grossly intact. Objective Data Vital Signs Vital Signs: Vital Signs - 24 hr 03/25/25 15:49 03/25/25 19:59 03/25/25 20:00 Temperature 36.8 C 36.6 C Pulse Rate 104 H 93 71 Respiratory Rate 20 20 20 Blood Pressure 97/62 L 103/65 Pulse Oximetry 98 100 92 Oxygen Delivery Room Air Fraction of Inspired Oxygen 21 03/25/25 20:31 03/25/25 23:53 03/26/25 07:05 Temperature 35.9 C L Pulse Rate 71 74 97 Respiratory Rate 20 16 Blood Pressure 106/70 Pulse Oximetry 92 99 Oxygen Delivery Room Air Fraction of Inspired Oxygen 21 Intake/Output Intake/Output: Intake & Output 03/23/25 03/24/25 03/25/25 03/26/25 23:59 23:59 23:59 23:59 Intake Total 1665 790 954 Output Total 1025 1350 250 Balance 640 -418 704 Meds/Results Medications: Active Medications Generic Name Dose Route Start Last Admin Trade Name Freq PRN Reason Stop Dose Admin Acetaminophen 650 mg 03/24/25 15:18 Acetaminophen 325 Mg Tablet PO Q4H PRN Mild Pain (1-3) or Fever Hydrocodone Bitart/Acetaminophen 1 tab 03/24/25 15:18 Hydrocodone/Acetaminophen (*Crx) 5-325 Mg Tablet PO Q4H PRN Moderate Pain (4-6) Al Hydrox/Mg Hydrox/Simethicone 30 ml 03/24/25 15:18 03/24/25 20:09 Mag Hydrox/Al Hydrox/Simeth 30 Ml Udc PO 30 ml QID PRN Administration Dyspepsia Amlodipine Besylate 5 mg 03/24/25 12:10 03/26/25 09:52 Amlodipine Besylate 5 Mg Tablet PO 5 mg DAILY MATRELL Administration Atorvastatin Calcium 40 mg 03/24/25 21:00 03/25/25 21:07 Atorvastatin 40 Mg Tablet PO 40 mg HS MARTELL Administration Bupropion HCl 150 mg 03/25/25 09:00 03/26/25 09:52 Bupropion Hcl Sr (12 Hr) 150 Mg Tab PO 150 mg DAILY MARTELL Administration Calcium Carbonate 200 mg 03/24/25 15:13 03/24/25 15:22 Calcium Carbonate (Tums) 500 Mg (200 Mg Elemental) PO 200 mg Q6H PRN Administration Indigestion Duloxetine HCl 60 mg 03/24/25 21:00 03/26/25 09:52 Duloxetine Hcl 60 Mg Capsule.Dr PO 60 mg Q12HR MARTELL Administration Enoxaparin Sodium 40 mg 03/25/25 09:00 03/26/25 09:53 Enoxaparin 40 Mg/0.4 Ml Syringe SUB-Q 40 mg DAILY MARTELL Administration Finasteride 5 mg 03/25/25 09:00 03/26/25 09:52 Finasteride 5 Mg Tablet PO 5 mg DAILY MARTELL Administration Hydroxyzine HCl 20 mg 03/24/25 21:00 03/25/25 21:07 Hydroxyzine Hcl 10 Mg Tablet PO 20 mg HS MARTELL Administration Piperacillin/Tazobactam/Dextrose 3.375 gm in 50 mls @ 100 mls/hr 03/25/25 10:00 03/26/25 10:55 Zosyn 3.375 Gm/Ns 50 Ml IVPB 100 mls/hr Q6H MARTELL Administration Sodium Chloride 1,000 mls @ 100 mls/hr 03/26/25 08:45 03/26/25 12:05 Normal Saline Iv IV CONT 100 mls/hr .Q10H MARTELL Administration Levothyroxine Sodium 50 mcg 03/25/25 06:30 03/26/25 06:02 Levothyroxine Sodium 50 Mcg Tablet PO 50 mcg DAILY@0630 MARTELL Administration Losartan Potassium 25 mg 03/24/25 12:10 03/26/25 09:52 Losartan Potassium 25 Mg Tablet PO 25 mg DAILY MARTELL Administration Methocarbamol 500 mg 03/24/25 15:21 Methocarbamol 500 Mg Tablet PO TID PRN Muscle Pain Mirabegron 50 mg 03/25/25 09:00 03/26/25 10:55 Mirabegron 50 Mg Er Tablet PO 50 mg DAILY MARTELL Administration Nitroglycerin 0.4 mg 03/24/25 15:21 Nitroglycerin Sl 0.4 Mg Tablet SUBLINGUAL Q5M PRN Chest Pain Pantoprazole Sodium 40 mg 03/25/25 09:00 03/26/25 09:52 Pantoprazole 40 Mg Tablet PO 40 mg QAM MARTELL Administration Perflutren Lipid Microsphere 0 ml 03/24/25 09:56 Perflutren Lipid Microspheres 1.5 Ml Vial Diluted To 10 Ml Total Volume IV PUSH 03/27/25 09:57 ONCE PRN adequate visualization Protocol Sodium Bicarbonate 650 mg 03/25/25 09:00 03/26/25 09:52 Sodium Bicarbonate Tab 650 Mg Tablet PO 650 mg DAILY MARTELL Administration Tamsulosin HCl 0.4 mg 03/25/25 09:00 03/26/25 09:52 Tamsulosin Hcl 0.4 Mg Capsule PO 0.4 mg DAILY MARTELL Administration Terazosin HCl 5 mg 03/25/25 09:00 03/26/25 10:55 Terazosin Hcl 5 Mg Capsule PO 5 mg QAM MARTELL Administration Radiology Results: ITS Impressions Chest/Abdomen/Pelvis CTA 03/24/25 06:41 Impression: 4.6 cm ascending aortic aneurysm. 3.8 cm infrarenal abdominal aortic aneurysm. Mild to moderate chronic interstitial pulmonary disease, as above. Small right inguinal hernia with a small amount of fluid. Chest X-Ray 03/24/25 06:45 Impression: No acute abnormality. Mild bibasilar chronic interstitial disease. Head CT 03/24/25 06:45 Impression: No significant abnormality seen. Labs Labs: Laboratory Results - last 24 hr 03/26/25 04:11 WBC 15.0 H RBC 4.52 L Hgb 12.9 L Hct 39.3 L MCV 86.9 MCH 28.5 MCHC 32.8 RDW 13.8 Plt Count 195 MPV 9.8 Sodium 137 Potassium 4.4 Chloride 104 Carbon Dioxide 22 Anion Gap 11 BUN 60 H D Creatinine 1.98 H Estim Creat Clear Calc 30 Estimated GFR 33 L Glucose 118 H Calcium 9.3 Magnesium 2.5 H Quality VTE Prophylaxis VTE prophylaxis: mechanical ordered and pharmacologic ordered
[2025-03-26 19:28] VITALS: PULSE 98; RESP 20; O2SAT 95
[2025-03-26] MEDS: hydrOXYzine HCL 10 MG TABLET 20 MG PO (20:45)
[2025-03-26] MEDS: ATORVASTATIN 40 MG TABLET PO (20:46)
[2025-03-26 21:54] VITALS: BP 108/64; PULSE 97; RESP 18; TEMP 36.2; O2SAT 98
[2025-03-27] VITALS (7 sets, daily range): BP systolic 101–106; BP diastolic 59–69; PULSE 79–94; RESP 14–18; TEMP 35.8–36.3; O2SAT 98–99
[2025-03-27] MEDS: SODIUM CHLORIDE 0.9% IV 1,000 ML 100 ML IV CONT ×2 (01:13→16:57)
[2025-03-27] MEDS: PIPERACILLN/TAZ 3.375GM/NS50ML 3.375 GM/50 ML BAG IVPB ×4 (04:06→21:57)
[2025-03-27] MEDS: LEVOTHYROXINE SODIUM 50 MCG TABLET PO (05:53)
[2025-03-27 05:59] LABS: Hemoglobin 11.8 g/dL (14.0-18.0); Mean Corpuscular HGB Conc 31.9 g/dl (32-36); Mean Corpuscular Hemoglobin 28.2 pg (26-34); Mean Corpuscular Volume 88.5 fl (80-100); Mean Platelet Volume 9.7 fl (7.4-10.4); Platelet Count Result 160 k/mm3 (150-375); Red Blood Count 4.18 M/mm3 (4.6-6.20); Red Cell Distribution Width 13.9 % (11.5-14.5); White Blood Count 8.3 K/mm3 (4.5-10.0)
[2025-03-27 06:43] LABS: Anion Gap 10 mmol/L (4-12); Blood Urea Nitrogen 55 mg/dL (9-20); Calcium 8.8 mg/dL (8.4-10.2); Carbon Dioxide 19 mmol/L (22-30); Chloride 110 mmol/L (98-107); Estimated CRCL calculation 31 ml/min; Estimated Glomerular Filt Rate 34; Glucose 97 mg/dL (65-110); Magnesium 2.6 mg/dL (1.6-2.3); Potassium 4.3 mmol/L (3.4-5.0); Sodium 139 mmol/L (137-145)
[2025-03-27] MEDS: amLODIPine BESYLATE 5 MG TABLET PO (09:40)
[2025-03-27] MEDS: DULoxetine HCL 60 MG CAPSULE.DR PO ×2 (09:40→21:57)
[2025-03-27] MEDS: FUROSEMIDE INJ 40 MG/4 ML VIAL 20 MG IV PUSH (09:40)
[2025-03-27] MEDS: FINASTERIDE 5 MG TABLET PO (09:40)
[2025-03-27] MEDS: buPROPion HCL SR (12 HR) 150 MG TAB PO (09:40)
[2025-03-27] MEDS: ENOXAPARIN 40 MG/0.4 ML SYRINGE SUB-Q (09:40)
[2025-03-27] MEDS: TERAZOSIN HCL 5 MG CAPSULE PO (09:41)
[2025-03-27] MEDS: TAMSULOSIN HCL 0.4 MG CAPSULE PO (09:41)
[2025-03-27] MEDS: LOSARTAN POTASSIUM 25 MG TABLET PO (09:41)
[2025-03-27] MEDS: SODIUM BICARBONATE TAB 650 MG TABLET PO (09:41)
[2025-03-27] MEDS: PANTOPRAZOLE 40 MG TABLET PO (09:41)
[2025-03-27] MEDS: MIRABEGRON 50 MG ER TABLET PO (09:41)
--- NOTE | 2025-03-27 13:32 | P.PNIM_ITS ---
Progress Note: A&P Assessment and Plan (1) Leukocytosis: Code(s): D72.829 - Elevated white blood cell count, unspecified Status: Acute Assessment and Plan: UA negative for infection CTA chest abdomen and pelvis negative for acute findings Head CT negative for acute findings Will repeat CBC morning No infective source identified at this time, will defer antibiotics (2) Lactic acidosis: Code(s): E87.20 - Acidosis, unspecified Status: Acute Assessment and Plan: Resolved, No infective source identified Resolved after 1 L fluid bolus (3) Hypertension: Code(s): I10 - Essential (primary) hypertension Status: Acute Assessment and Plan: Patient started on Norvasc by Cardiology (4) Chest pain: Qualifiers: Chest pain type: unspecified Qualified Code(s): R07.9 - Chest pain, unspecified Code(s): R07.9 - Chest pain, unspecified Status: Acute Assessment and Plan: Seen by cardiology does not believe that it does related to cardiac factors, reproducible on exam Tums for heartburn Continue home Muscle relaxers (5) Aortic aneurysm: Qualifiers: Abdominal aorta location: unspecified Aortic location: abdominal aorta Presence of rupture: without rupture Qualified Code(s): I71.40 - Abdominal aortic aneurysm, without rupture, unspecified Code(s): I71.9 - Aortic aneurysm of unspecified site, without rupture Status: Acute Assessment and Plan: 4.6 cm ascending aortic aneurysm. 3.8 cm infrarenal abdominal aortic aneurysm. Which appear on a previous CTA from 04/24/2024 appear to be stable (6) BPH (benign prostatic hyperplasia): Code(s): N40.0 - Benign prostatic hyperplasia without lower urinary tract symptoms Status: Acute Assessment and Plan: Restart home Proscar and Flomax (7) CAD (coronary artery disease): Code(s): I25.10 - Atherosclerotic heart disease of [place] coronary artery without angina pectoris Status: Acute Assessment and Plan: Continue statin, aspirin, Norvasc and Cozaar (8) CKD (chronic kidney disease) stage 3, GFR 30-59 ml/min: Code(s): N18.30 - Chronic kidney disease, stage 3 unspecified Status: Acute Assessment and Plan: Continue bicarb BMP in the morning Plan patient with history of CAD presented with c/o CP and was seen by cardiology and did not suspect ACS and his cardiac echo is essentially normal with EF of 60-65% and grade 1 diastolic dysfunction, on 03/25 patient denied any CP, stats feel much better compared to when he arrive, however his white counts have jumped 19.3 compared to 12.8 upon arrival, today patient white counts are trending down to 8.3, he is being treated with zosyn, upon arrival no blood or urine culture were done, his chest x-ray is normal, patient has no complaints, has no fever, will monitor patient one more day if the white counts keep trending down, will monitor. patient white counts trending down and clinical symptoms are improving. patient CT scan of abdomen showed 4.6 cm ascending aortic aneurysm and 3.8 cm infrarenal abdominal aortic aneurysm. patient is aware that he has aneurysm but he is not followed by any vascular surgeon, I called [facility] tranfer line and and sent the films to review for further recommendations. i spoke with vascular surgeon Dr. Frey and who reviewed film did suspect an emergent issue, and patient can follow up with his primary for vascular consult.I have discuss with patient and his daughter is nurse and is aware, patient remains clinically stable, patient BUN and Scr are rising 60/198 most likely due to dehydration, patient encourage to increase fluid intake and will start on IVF, will monitor Subjective Date/time seen: 03/27/25 13:32 Interval history: Chest pain and shortness of breath Narrative: 74-year-old male past medical history of CKD stage 3, MARLENY, hypertension, hyperlipidemia and HI at 41. Presents to the hospital chest pain and shortness of breath. 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 Patient denies any heavy lifting however the pain is reproducible on palpation states that the exact same pain they felt earlier. Patient denies nausea vomiting fever chills. He was given 324 mg aspirin and nitro x3 by EMS with no change. Patient is complaining about heartburn and throat pain this afternoon. In the ED patient has leukocytosis at 12.8, hemoglobin of 13.3, ABG shows a pCO2 of 22.7 and a bicarb of 15.0, anion gap 19, BUN of 41, creatinine of 1.45 which appears to be baseline, lactic acid of 4.8 followed by 2.0, 1st 2 troponins were negative. UA is noninfective, drug screen is positive for cannabinoids. CT chest abdomen pelvis CTA shows aortic aneurysm, abdominal aortic aneurysm, mild to moderate chronic interstitial lung disease, and small right inguinal hernia. CT head shows no acute process. EKG shows sinus she due for screening AV block QTC of 465, echo shows EF 60-65% grade 1 diastolic dysfunction cardiology was consulted. patient with history of CAD presented with c/o CP and was seen by cardiology and did not suspect ACS and his cardiac echo is essentially normal with EF of 60-65% and grade 1 diastolic dysfunction, on 03/25 patient denied any CP, stats feel much better compared to when he arrive, however his white counts have jumped 19.3 compared to 12.8 upon arrival, today patient white counts are trending down to 8.3, he is being treated with zosyn, upon arrival no blood or urine culture were done, his chest x-ray is normal, patient has no complaints, has no fever, will monitor patient one more day if the white counts keep trending down, will monitor. patient white counts trending down and clinical symptoms are improving. patient CT scan of abdomen showed 4.6 cm ascending aortic aneurysm and 3.8 cm infrarenal abdominal aortic aneurysm. patient is aware that he has aneurysm but he is not followed by any vascular surgeon, I called [facility] tranfer line and and sent the films to review for further recommendations. i spoke with vascular surg [place] Dr. Frey and who reviewed film did suspect an emergent issue, and patient can follow up with his primary for vascular consult.I have discuss with patient and his daughter is nurse and is aware, patient remains clinically stable, patient BUN and Scr are rising 60/198 most likely due to dehydration, patient encourage to increase fluid intake and will start on IVF, will monitor Review of Systems Review of Systems: 12 systems were reviewed and are negativ e except for as per HPI. Exam Narrative: Patient is comfortable, NAD HEENT: eyes are clear and none icteric LUNGS:CTA HEART: RR S1S2 ABD: BS+, Soft and nontender Lower extremities: no edema SKIN: nonjaundiced Neuro: grossly intact. Objective Data Vital Signs Vital Signs: Vital Signs - 24 hr 03/26/25 14:00 03/26/25 19:28 03/26/25 21:54 Temperature 36.2 C L 36.2 C L Pulse Rate 93 98 97 Respiratory Rate 18 20 18 Blood Pressure 114/75 108/64 Pulse Oximetry 98 95 98 Oxygen Delivery Room Air Fraction of Inspired Oxygen 21 03/27/25 06:00 Temperature 36.3 C L Pulse Rate 88 Respiratory Rate 18 Blood Pressure 106/69 Pulse Oximetry 99 Oxygen Delivery Fraction of Inspired Oxygen Intake/Output Intake/Output: Intake & Output 03/24/25 03/25/25 03/26/25 03/27/25 23:59 23:59 23:59 23:59 Intake Total 5190 137 0844 290 Output Total 1025 1350 750 300 Balance 640 -560 2714 -10 Meds/Results Medications: Active Medications Generic Name Dose Route Start Last Admin Trade Name Freq PRN Reason Stop Dose Admin Acetaminophen 650 mg 03/24/25 15:18 Acetaminophen 325 Mg Tablet PO Q4H PRN Mild Pain (1-3) or Fever Hydrocodone Bitart/Acetaminophen 1 tab 03/24/25 15:18 Hydrocodone/Acetaminophen (*Crx) 5-325 Mg Tablet PO Q4H PRN Moderate Pain (4-6) Al Hydrox/Mg Hydrox/Simethicone 30 ml 03/24/25 15:18 03/24/25 20:09 Mag Hydrox/Al Hydrox/Simeth 30 Ml Udc PO 30 ml QID PRN Administration Dyspepsia Amlodipine Besylate 5 mg 03/24/25 12:10 03/27/25 09:40 Amlodipine Besylate 5 Mg Tablet PO 5 mg DAILY MARTELL Administration Atorvastatin Calcium 40 mg 03/24/25 21:00 03/26/25 20:46 Atorvastatin 40 Mg Tablet PO 40 mg HS MARTELL Administration Bupropion HCl 150 mg 03/25/25 09:00 03/27/25 09:40 Bupropion Hcl Sr (12 Hr) 150 Mg Tab PO 150 mg DAILY MARTELL Administration Calcium Carbonate 200 mg 03/24/25 15:13 03/24/25 15:22 Calcium Carbonate (Tums) 500 Mg (200 Mg Elemental) PO 200 mg Q6H PRN Administration Indigestion Duloxetine HCl 60 mg 03/24/25 21:00 03/27/25 09:40 Duloxetine Hcl 60 Mg Capsule.Dr PO 60 mg Q12HR MARTELL Administration Enoxaparin Sodium 40 mg 03/25/25 09:00 03/27/25 09:40 Enoxaparin 40 Mg/0.4 Ml Syringe SUB-Q 40 mg DAILY MARTELL Administration Finasteride 5 mg 03/25/25 09:00 03/27/25 09:40 Finasteride 5 Mg Tablet PO 5 mg DAILY MARTELL Administration Hydroxyzine HCl 20 mg 03/24/25 21:00 03/26/25 20:45 Hydroxyzine Hcl 10 Mg Tablet PO 20 mg HS MARTELL Administration Piperacillin/Tazobactam/Dextrose 3.375 gm in 50 mls @ 100 mls/hr 03/25/25 10:00 03/27/25 10:30 Zosyn 3.375 Gm/Ns 50 Ml IVPB 100 mls/hr Q6H MARTELL Administration Sodium Chloride 1,000 mls @ 100 mls/hr 03/26/25 08:45 03/27/25 01:13 Normal Saline Iv IV CONT 100 mls/hr .Q10H MARTELL Administration Levothyroxine Sodium 50 mcg 03/25/25 06:30 03/27/25 05:53 Levothyroxine Sodium 50 Mcg Tablet PO 50 mcg DAILY@0630 MARTELL Administration Losartan Potassium 25 mg 03/24/25 12:10 03/27/25 09:41 Losartan Potassium 25 Mg Tablet PO 25 mg DAILY MARTELL Administration Methocarbamol 500 mg 03/24/25 15:21 Methocarbamol 500 Mg Tablet PO TID PRN Muscle Pain Mirabegron 50 mg 03/25/25 09:00 03/27/25 09:41 Mirabegron 50 Mg Er Tablet PO 50 mg DAILY MARTELL Administration Nitroglycerin 0.4 mg 03/24/25 15:21 Nitroglycerin Sl 0.4 Mg Tablet SUBLINGUAL Q5M PRN Chest Pain Pantoprazole Sodium 40 mg 03/25/25 09:00 03/27/25 09:41 Pantoprazole 40 Mg Tablet PO 40 mg QAM MARTELL Administration Sodium Bicarbonate 650 mg 03/25/25 09:00 03/27/25 09:41 Sodium Bicarbonate Tab 650 Mg Tablet PO 650 mg DAILY MARTELL Administration Tamsulosin HCl 0.4 mg 03/25/25 09:00 03/27/25 09:41 Tamsulosin Hcl 0.4 Mg Capsule PO 0.4 mg DAILY MARTELL Administration Terazosin HCl 5 mg 03/25/25 09:00 03/27/25 09:41 Terazosin Hcl 5 Mg Capsule PO 5 mg QAM MARTELL Administration Radiology Results: ITS Impressions Chest/Abdomen/Pelvis CTA 03/24/25 06:41 Impression: 4.6 cm ascending aortic aneurysm. 3.8 cm infrarenal abdominal aortic aneurysm. Mild to moderate chronic interstitial pulmonary disease, as above. Small right inguinal hernia with a small amount of fluid. Chest X-Ray 03/24/25 06:45 Impression: No acute abnormality. Mild bibasilar chronic interstitial disease. Head CT 03/24/25 06:45 Impression: No significant abnormality seen. Labs Labs: Laboratory Results - last 24 hr 03/27/25 05:27 WBC 8.3 RBC 4.18 L Hgb 11.8 L Hct 37.0 L MCV 88.5 MCH 28.2 MCHC 31.9 L RDW 13.9 Plt Count 160 MPV 9.7 Sodium 139 Potassium 4.3 Chloride 110 H Carbon Dioxide 19 L Anion Gap 10 BUN 55 H Creatinine 1.93 H Estim Creat Clear Calc 31 Estimated GFR 34 L Glucose 97 Calcium 8.8 Magnesium 2.6 H Quality VTE Prophylaxis VTE prophylaxis: mechanical ordered and pharmacologic ordered
[2025-03-27] MEDS: HYDROcodone/acetaminophen (*CRX) 5-325 MG TABLET 1 TAB PO (16:57)
[2025-03-27] MEDS: methocarbamoL 500 MG TABLET PO (16:58)
[2025-03-27] MEDS: ATORVASTATIN 40 MG TABLET PO (21:57)
[2025-03-27] MEDS: hydrOXYzine HCL 10 MG TABLET 20 MG PO (21:57)
[2025-03-28] VITALS (10 sets, daily range): BP systolic 108–113; BP diastolic 61–65; PULSE 67–92; RESP 14–18; TEMP 36.1–36.4; O2SAT 98–99
[2025-03-28] MEDS: SODIUM CHLORIDE 0.9% IV 1,000 ML 100 ML IV CONT ×3 (04:04→22:03)
[2025-03-28] MEDS: PIPERACILLN/TAZ 3.375GM/NS50ML 3.375 GM/50 ML BAG IVPB ×4 (04:04→22:02)
[2025-03-28 06:04] LABS: Hematocrit 35.2 % (42.0-52.0); Hemoglobin 11.1 g/dL (14.0-18.0); Mean Corpuscular HGB Conc 31.5 g/dl (32-36); Mean Corpuscular Hemoglobin 28.3 pg (26-34); Mean Corpuscular Volume 89.8 fl (80-100); Mean Platelet Volume 9.1 fl (7.4-10.4); Platelet Count Result 146 k/mm3 (150-375); Red Blood Count 3.92 M/mm3 (4.6-6.20); Red Cell Distribution Width 13.9 % (11.5-14.5); White Blood Count 6.8 K/mm3 (4.5-10.0)
[2025-03-28 06:39] LABS: Anion Gap 9 mmol/L (4-12); Blood Urea Nitrogen 48 mg/dL (9-20); Calcium 8.5 mg/dL (8.4-10.2); Carbon Dioxide 20 mmol/L (22-30); Chloride 111 mmol/L (98-107); Estimated CRCL calculation 32 ml/min; Estimated Glomerular Filt Rate 35; Glucose 75 mg/dL (65-110); Magnesium 2.2 mg/dL (1.6-2.3); Potassium 3.7 mmol/L (3.4-5.0); Sodium 140 mmol/L (137-145)
[2025-03-28] MEDS: LEVOTHYROXINE SODIUM 50 MCG TABLET PO (06:44)
--- NOTE | 2025-03-28 09:56 | P.PNIM_ITS ---
Progress Note: A&P Assessment and Plan (1) Leukocytosis: Code(s): D72.829 - Elevated white blood cell count, unspecified Status: Acute Assessment and Plan: UA negative for infection CTA chest abdomen and pelvis negative for acute findings Head CT negative for acute findings Will repeat CBC morning No infective source identified at this time, will defer antibiotics (2) Lactic acidosis: Code(s): E87.20 - Acidosis, unspecified Status: Acute Assessment and Plan: Resolved, No infective source identified Resolved after 1 L fluid bolus (3) Hypertension: Code(s): I10 - Essential (primary) hypertension Status: Acute Assessment and Plan: Patient started on Norvasc by Cardiology (4) Chest pain: Qualifiers: Chest pain type: unspecified Qualified Code(s): R07.9 - Chest pain, unspecified Code(s): R07.9 - Chest pain, unspecified Status: Acute Assessment and Plan: Seen by cardiology does not believe that it does related to cardiac factors, reproducible on exam Tums for heartburn Continue home Muscle relaxers (5) Aortic aneurysm: Qualifiers: Abdominal aorta location: unspecified Aortic location: abdominal aorta Presence of rupture: without rupture Qualified Code(s): I71.40 - Abdominal aortic aneurysm, without rupture, unspecified Code(s): I71.9 - Aortic aneurysm of unspecified site, without rupture Status: Acute Assessment and Plan: 4.6 cm ascending aortic aneurysm. 3.8 cm infrarenal abdominal aortic aneurysm. Which appear on a previous CTA from 04/24/2024 appear to be stable (6) BPH (benign prostatic hyperplasia): Code(s): N40.0 - Benign prostatic hyperplasia without lower urinary tract symptoms Status: Acute Assessment and Plan: Restart home Proscar and Flomax (7) CAD (coronary artery disease): Code(s): I25.10 - Atherosclerotic heart disease of [place] coronary artery without angina pectoris Status: Acute Assessment and Plan: Continue statin, aspirin, Norvasc and Cozaar (8) CKD (chronic kidney disease) stage 3, GFR 30-59 ml/min: Code(s): N18.30 - Chronic kidney disease, stage 3 unspecified Status: Acute Assessment and Plan: Continue bicarb BMP in the morning Plan patient with history of CAD presented with c/o CP and was seen by cardiology and did not suspect ACS and his cardiac echo is essentially normal with EF of 60-65% and grade 1 diastolic dysfunction, on 03/25 patient denied any CP, stats feel much better compared to when he arrive, however his white counts have jumped 19.3 compared to 12.8 upon arrival, today patient white counts are trending down to 6.8 he is being treated with zosyn, upon arrival no blood or urine culture were done, his chest x-ray is normal, patient has no complaints, has no fever, will monitor patient one more day if the white counts keep trending down, will monitor. patient white counts trending down and clinical symptoms are improving. patient CT scan of abdomen showed 4.6 cm ascending aortic aneurysm and 3.8 cm infrarenal abdominal aortic aneurysm. patient is aware that he has aneurysm but he is not followed by any vascular surgeon, I called [facility] tranfer line and and sent the films to review for further recommendations. i spoke with vascular surgeon Dr. Frey and who reviewed film did suspect an emergent issue, and patient can follow up with his primary for vascular consult.I have discuss with patient and his daughter is nurse and is aware, patient remains clinically stable, patient BUN and Scr are rising 60/198 most likely due to dehydration, patient encourage to increase fluid intake and started on IVF and today his BUN and Scr are trending down to 48/1.87 will monitor. today patient daughter is present in the room, gave updates and she is aware of AAA 4.6, patient will follow up with his PMD at the [facility]. Subjective Date/time seen: 03/28/25 09:56 Interval history: Chest pain and shortness of breath Narrative: 74-year-old male past medical history of CKD stage 3, MARLENY, hypertension, hyperlipidemia and [place] at 41. Presents to the hospital chest pain and shortness of breath. 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 Patient denies any heavy lifting however the pain is reproducible on palpation states that the exact same pain they felt earlier. Patient denies nausea vomiting fever chills. He was given 324 mg aspirin and nitro x3 by EMS with no change. Patient is complaining about heartburn and throat pain this afternoon. In the ED patient has leukocytosis at 12.8, hemoglobin of 13.3, ABG shows a pCO2 of 22.7 and a bicarb of 15.0, anion gap 19, BUN of 41, creatinine of 1.45 which appears to be baseline, lactic acid of 4.8 followed by 2.0, 1st 2 troponins were negative. UA is noninfective, drug screen is positive for cannabinoids. CT chest abdomen pelvis CTA shows aortic aneurysm, abdominal aortic aneurysm, mild to moderate chronic interstitial lung disease, and small right inguinal hernia. CT head shows no acute process. EKG shows sinus she due for screening AV block QTC of 465, echo shows EF 60-65% grade 1 diastolic dysfunction cardiology was consulted. patient with history of CAD presented with c/o CP and was seen by cardiology and did not suspect ACS and his cardiac echo is essentially normal with EF of 60-65% and grade 1 diastolic dysfunction, on 03/25 patient denied any CP, stats feel much better compared to when he arrive, however his white counts have jumped 19.3 compared to 12.8 upon arrival, today patient white counts are trending down to 6.8 he is being treated with zosyn, upon arrival no blood or urine culture were done, his chest x-ray is normal, patient has no complaints, has no fever, will monitor patient one more day if the white counts keep trending down, will monitor. patient white counts trending down and clinical symptoms are improving. patient CT scan of abdomen showed 4.6 cm ascending aortic aneurysm and 3.8 cm infrarenal abdominal aortic aneurysm. patient is aware that he has aneurysm but he is not followed by any vascular surgeon, I called [facility] tranfer line and and sent the films to review for further recommendations. i spoke with vascular surgeon Dr. Frey and who reviewed film did suspect an emergent issue, and patient can follow up with his primary for vascular consult.I have discuss with patient and his daughter is nurse and is aware, patient remains clinically stable, patient BUN and Scr are rising 60/198 most likely due to dehydration, patient encourage to increase fluid intake and started on IVF and today his BUN and Scr are trending down to 48/1.87 will monitor. today patient daughter is present in the room, gave updates and she is aware of AAA 4.6, [facility] Review of Systems Review of Systems: 12 systems were reviewed and are negativ e except for as per HPI. Exam Narrative: Patient is comfortable, NAD HEENT: eyes are clear and none icteric LUNGS:CTA HEART: RR S1S2 ABD: BS+, Soft and nontender Lower extremities: no edema SKIN: nonjaundiced Neuro: grossly intact. Objective Data Vital Signs Vital Signs: Vital Signs - 24 hr 03/27/25 12:00 03/27/25 14:00 03/27/25 16:00 Temperature 36.2 C L Pulse Rate 94 94 94 Respiratory Rate 14 Blood Pressure 101/59 L Pulse Oximetry 98 Oxygen Delivery 03/27/25 20:20 03/27/25 22:00 03/28/25 00:00 Temperature 35.8 C L Pulse Rate 93 79 92 Respiratory Rate 18 Blood Pressure 106/60 Pulse Oximetry 98 Oxygen Delivery 03/28/25 04:00 03/28/25 06:00 03/28/25 08:00 Temperature 36.1 C L Pulse Rate 78 67 Respiratory Rate 18 Blood Pressure 108/65 Pulse Oximetry 99 Oxygen Delivery Room Air Intake/Output Intake/Output: Intake & Output 03/25/25 03/26/25 03/27/25 03/28/25 23:59 23:59 23:59 23:59 Intake Total 790 3464 1810 1250 Output Total 1899 249 5302 1450 Balance -560 2714 160 -200 Meds/Results Medications: Active Medications Generic Name Dose Route Start Last Admin Trade Name Freq PRN Reason Stop Dose Admin Acetaminophen 650 mg 03/24/25 15:18 Acetaminophen 325 Mg Tablet PO Q4H PRN Mild Pain (1-3) or Fever Hydrocodone Bitart/Acetaminophen 1 tab 03/24/25 15:18 03/27/25 16:57 Hydrocodone/Acetaminophen (*Crx) 5-325 Mg Tablet PO 1 tab Q4H PRN Administration Moderate Pain (4-6) Al Hydrox/Mg Hydrox/Simethicone 30 ml 03/24/25 15:18 03/24/25 20:09 Mag Hydrox/Al Hydrox/Simeth 30 Ml Udc PO 30 ml QID PRN Administration Dyspepsia Amlodipine Besylate 5 mg 03/24/25 12:10 03/27/25 09:40 Amlodipine Besylate 5 Mg Tablet PO 5 mg DAILY MARTELL Administration Atorvastatin Calcium 40 mg 03/24/25 21:00 03/27/25 21:57 Atorvastatin 40 Mg Tablet PO 40 mg HS MARTELL Administration Bupropion HCl 150 mg 03/25/25 09:00 03/27/25 09:40 Bupropion Hcl Sr (12 Hr) 150 Mg Tab PO 150 mg DAILY MARTELL Administration Calcium Carbonate 200 mg 03/24/25 15:13 03/24/25 15:22 Calcium Carbonate (Tums) 500 Mg (200 Mg Elemental) PO 200 mg Q6H PRN Administration Indigestion Duloxetine HCl 60 mg 03/24/25 21:00 03/27/25 21:57 Duloxetine Hcl 60 Mg Capsule.Dr PO 60 mg Q12HR MARTELL Administration Enoxaparin Sodium 40 mg 03/25/25 09:00 03/27/25 09:40 Enoxaparin 40 Mg/0.4 Ml Syringe SUB-Q 40 mg DAILY MARTELL Administration Finasteride 5 mg 03/25/25 09:00 03/27/25 09:40 Finasteride 5 Mg Tablet PO 5 mg DAILY MARTELL Administration Hydroxyzine HCl 20 mg 03/24/25 21:00 03/27/25 21:57 Hydroxyzine Hcl 10 Mg Tablet PO 20 mg HS MARTELL Administration Piperacillin/Tazobactam/Dextrose 3.375 gm in 50 mls @ 100 mls/hr 03/25/25 10:00 03/28/25 04:34 Zosyn 3.375 Gm/Ns 50 Ml IVPB Infused Q6H MARTELL Infusion Sodium Chloride 1,000 mls @ 100 mls/hr 03/26/25 08:45 03/28/25 04:04 Normal Saline Iv IV CONT 100 mls/hr .Q10H MARTELL Administration Levothyroxine Sodium 50 mcg 03/25/25 06:30 03/28/25 06:44 Levothyroxine Sodium 50 Mcg Tablet PO 50 mcg DAILY@0630 MARTELL Administration Losartan Potassium 25 mg 03/24/25 12:10 03/27/25 09:41 Losartan Potassium 25 Mg Tablet PO 25 mg DAILY MARTELL Administration Methocarbamol 500 mg 03/24/25 15:21 03/27/25 16:58 Methocarbamol 500 Mg Tablet PO 500 mg TID PRN Administration Muscle Pain Mirabegron 50 mg 03/25/25 09:00 03/27/25 09:41 Mirabegron 50 Mg Er Tablet PO 50 mg DAILY MARTELL Administration Nitroglycerin 0.4 mg 03/24/25 15:21 Nitroglycerin Sl 0.4 Mg Tablet SUBLINGUAL Q5M PRN Chest Pain Pantoprazole Sodium 40 mg 03/25/25 09:00 03/27/25 09:41 Pantoprazole 40 Mg Tablet PO 40 mg QAM MARTELL Administration Sodium Bicarbonate 650 mg 03/25/25 09:00 03/27/25 09:41 Sodium Bicarbonate Tab 650 Mg Tablet PO 650 mg DAILY MARTELL Administration Tamsulosin HCl 0.4 mg 03/25/25 09:00 03/27/25 09:41 Tamsulosin Hcl 0.4 Mg Capsule PO 0.4 mg DAILY MARTELL Administration Terazosin HCl 5 mg 03/25/25 09:00 03/27/25 09:41 Terazosin Hcl 5 Mg Capsule PO 5 mg QAM MARTELL Administration Radiology Results: ITS Impressions Chest/Abdomen/Pelvis CTA 03/24/25 06:41 Impression: 4.6 cm ascending aortic aneurysm. 3.8 cm infrarenal abdominal aortic aneurysm. Mild to moderate chronic interstitial pulmonary disease, as above. Small right inguinal hernia with a small amount of fluid. Chest X-Ray 03/24/25 06:45 Impression: No acute abnormality. Mild bibasilar chronic interstitial disease. Head CT 03/24/25 06:45 Impression: No significant abnormality seen. Labs Labs: Laboratory Results - last 24 hr 03/28/25 05:57 WBC 6.8 RBC 3.92 L Hgb 11.1 L Hct 35.2 L MCV 89.8 MCH 28.3 MCHC 31.5 L RDW 13.9 Plt Count 146 L MPV 9.1 Sodium 140 Potassium 3.7 Chloride 111 H Carbon Dioxide 20 L Anion Gap 9 BUN 48 H Creatinine 1.87 H Estim Creat Clear Calc 32 Estimated GFR 35 L Glucose 75 Calcium 8.5 Magnesium 2.2 Quality VTE Prophylaxis VTE prophylaxis: mechanical ordered and pharmacologic ordered
[2025-03-28] MEDS: buPROPion HCL SR (12 HR) 150 MG TAB PO (10:03)
[2025-03-28] MEDS: SODIUM BICARBONATE TAB 650 MG TABLET PO (10:03)
[2025-03-28] MEDS: ENOXAPARIN 40 MG/0.4 ML SYRINGE SUB-Q (10:03)
[2025-03-28] MEDS: LOSARTAN POTASSIUM 25 MG TABLET PO (10:03)
[2025-03-28] MEDS: TERAZOSIN HCL 5 MG CAPSULE PO (10:04)
[2025-03-28] MEDS: DULoxetine HCL 60 MG CAPSULE.DR PO ×2 (10:04→20:48)
[2025-03-28] MEDS: amLODIPine BESYLATE 5 MG TABLET PO (10:04)
[2025-03-28] MEDS: MIRABEGRON 50 MG ER TABLET PO (10:04)
[2025-03-28] MEDS: FINASTERIDE 5 MG TABLET PO (10:04)
[2025-03-28] MEDS: TAMSULOSIN HCL 0.4 MG CAPSULE PO (10:04)
[2025-03-28] MEDS: PANTOPRAZOLE 40 MG TABLET PO (10:04)
[2025-03-28 20:02] LABS: Hemoglobin A1C 5.2 % (<5.7)
[2025-03-28 20:19] LABS: Glucose Point of Care 123 mg/dl (65-105)
[2025-03-28] MEDS: hydrOXYzine HCL 10 MG TABLET 20 MG PO (20:47)
[2025-03-28] MEDS: ATORVASTATIN 40 MG TABLET PO (20:48)
[2025-03-29] VITALS: PULSE 77
[2025-03-29 03:43] VITALS: PULSE 68
[2025-03-29] MEDS: PIPERACILLN/TAZ 3.375GM/NS50ML 3.375 GM/50 ML BAG IVPB ×2 (04:04→09:15)
[2025-03-29 05:08] VITALS: BP 126/70; PULSE 71; RESP 16; TEMP 36.3; O2SAT 99
[2025-03-29] MEDS: LEVOTHYROXINE SODIUM 50 MCG TABLET PO (06:21)
[2025-03-29 06:26] LABS: Hematocrit 33.5 % (42.0-52.0); Hemoglobin 10.7 g/dL (14.0-18.0); Mean Corpuscular HGB Conc 31.9 g/dl (32-36); Mean Corpuscular Hemoglobin 28.4 pg (26-34); Mean Corpuscular Volume 88.9 fl (80-100); Mean Platelet Volume 9.8 fl (7.4-10.4); Platelet Count Result 155 k/mm3 (150-375); Red Blood Count 3.77 M/mm3 (4.6-6.20); Red Cell Distribution Width 13.8 % (11.5-14.5); White Blood Count 6.2 K/mm3 (4.5-10.0)
[2025-03-29 06:43] LABS: Anion Gap 8 mmol/L (4-12); Blood Urea Nitrogen 41 mg/dL (9-20); Calcium 8.6 mg/dL (8.4-10.2); Carbon Dioxide 21 mmol/L (22-30); Chloride 112 mmol/L (98-107); Estimated CRCL calculation 38 ml/min; Estimated Glomerular Filt Rate 44; Glucose 74 mg/dL (65-110); Magnesium 2.2 mg/dL (1.6-2.3); Potassium 3.7 mmol/L (3.4-5.0); Sodium 141 mmol/L (137-145)
[2025-03-29 08:00] VITALS: PULSE 66
[2025-03-29 08:20] LABS: Glucose Point of Care 84 mg/dl (65-105)
[2025-03-29] MEDS: PANTOPRAZOLE 40 MG TABLET PO (09:15)
[2025-03-29] MEDS: FINASTERIDE 5 MG TABLET PO (09:15)
[2025-03-29] MEDS: buPROPion HCL SR (12 HR) 150 MG TAB PO (09:15)
[2025-03-29] MEDS: SODIUM BICARBONATE TAB 650 MG TABLET PO (09:15)
[2025-03-29] MEDS: amLODIPine BESYLATE 5 MG TABLET PO (09:15)
[2025-03-29] MEDS: TERAZOSIN HCL 5 MG CAPSULE PO (09:15)
[2025-03-29] MEDS: MIRABEGRON 50 MG ER TABLET PO (09:15)
[2025-03-29] MEDS: LOSARTAN POTASSIUM 25 MG TABLET PO (09:15)
[2025-03-29] MEDS: TAMSULOSIN HCL 0.4 MG CAPSULE PO (09:15)
[2025-03-29] MEDS: DULoxetine HCL 60 MG CAPSULE.DR PO (09:15)
[2025-03-29] MEDS: ENOXAPARIN 40 MG/0.4 ML SYRINGE SUB-Q (09:20)
--- NOTE | 2025-03-29 09:47 | P.DS_ITS ---
DS: Admitting Diagnosis Discharge Date 03/29/25 Admitting Diagnosis Chest pain and shortness of breath DS: Discharge Diagnosis Discharge Diagnosis (1) Leukocytosis: Code(s): D72.829 - Elevated white blood cell count, unspecified Status: Acute Assessment and Plan: UA negative for infection CTA chest abdomen and pelvis negative for acute findings Head CT negative for acute findings Will repeat CBC morning No infective source identified at this time, will defer antibiotics (2) Lactic acidosis: Code(s): E87.20 - Acidosis, unspecified Status: Acute Assessment and Plan: Resolved, No infective source identified Resolved after 1 L fluid bolus (3) Hypertension: Code(s): I10 - Essential (primary) hypertension Status: Acute Assessment and Plan: Patient started on Norvasc by Cardiology (4) Chest pain: Qualifiers: Chest pain type: unspecified Qualified Code(s): R07.9 - Chest pain, unspecified Code(s): R07.9 - Chest pain, unspecified Status: Acute Assessment and Plan: Seen by cardiology does not believe that it does related to cardiac factors, reproducible on exam Tums for heartburn Continue home Muscle relaxers (5) Aortic aneurysm: Qualifiers: Abdominal aorta location: unspecified Aortic location: abdominal aorta Presence of rupture: without rupture Qualified Code(s): I71.40 - Abdominal aortic aneurysm, without rupture, unspecified Code(s): I71.9 - Aortic aneurysm of unspecified site, without rupture Status: Acute Assessment and Plan: 4.6 cm ascending aortic aneurysm. 3.8 cm infrarenal abdominal aortic aneurysm. Which appear on a previous CTA from 04/24/2024 appear to be stable (6) BPH (benign prostatic hyperplasia): Code(s): N40.0 - Benign prostatic hyperplasia without lower urinary tract symptoms Status: Acute Assessment and Plan: Restart home Proscar and Flomax (7) CAD (coronary artery disease): Code(s): I25.10 - Atherosclerotic heart disease of [place] coronary artery without angina pectoris Status: Acute Assessment and Plan: Continue statin, aspirin, Norvasc and Cozaar (8) CKD (chronic kidney disease) stage 3, GFR 30-59 ml/min: Code(s): N18.30 - Chronic kidney disease, stage 3 unspecified Status: Acute Assessment and Plan: Continue bicarb BMP in the morning Plan patient with history of CAD presented with c/o CP and was seen by cardiology and did not suspect ACS and his cardiac echo is essentially normal with EF of 60-65% and grade 1 diastolic dysfunction, on 03/25 patient denied any CP, stats feel much better compared to when he arrive, however his white counts have jumped 19.3 compared to 12.8 upon arrival, today patient white counts are trending down to 6.8 he is being treated with zosyn, upon arrival no blood or urine culture were done, his chest x-ray is normal, patient has no complaints, has no fever, will monitor patient one more day if the white counts keep trending down, will monitor. patient white counts trending down and clinical symptoms are improving. patient CT scan of abdomen showed 4.6 cm ascending aortic aneurysm and 3.8 cm infrarenal abdominal aortic aneurysm. patient is aware that he has aneurysm but he is not followed by any vascular surgeon, I called [facility] tranfer line and and sent the films to review for further recommendations. i spoke with vascular surgeon Dr. Frey and who reviewed film did suspect an emergent issue, and patient can follow up with his primary for vascular consult.I have discuss with patient and his daughter is nurse and is aware, patient remains clinically stable, patient BUN and Scr are rising 60/198 most likely due to dehydration, patient encourage to increase fluid intake and started on IVF and today his BUN and Scr are trending down to 48/1.87 will monitor. today patient daughter is present in the room, gave updates and she is aware of AAA 4.6, patient will follow up with [facility] at [facility]. DS: Summary Hospital Course Hospital Course: patient with history of CAD presented with c/o CP and was seen by cardiology and did not suspect ACS and his cardiac echo is essentially normal with EF of 60-65% and grade 1 diastolic dysfunction, on 03/25 patient denied any CP, stats feel much better compared to when he arrive, however his white counts have jumped 19.3 compared to 12.8 upon arrival, today patient white counts are trending down to 6.8 he is being treated with zosyn, upon arrival no blood or urine culture were done, his chest x-ray is normal, patient has no complaints, has no fever, will monitor patient one more day if the white counts keep trending down, will monitor. patient white counts trending down and clinical symptoms are improving. patient CT scan of abdomen showed 4.6 cm ascending aortic aneurysm and 3.8 cm infrarenal abdominal aortic aneurysm. patient is aware that he has aneurysm but he is not followed by any vascular surgeon, I called [facility] tranfer line and and sent the films to review for further recommendations. i spoke with vascular surgeon Dr. Frey and who reviewed film did suspect an emergent issue, and patient can follow up with his primary for vascular consult.I have discuss with patient and his daughter is nurse and is aware, patient remains clinically stable, patient BUN and Scr are rising 60/198 most likely due to dehydration, patient encourage to increase fluid intake and started on IVF and today his BUN and Scr are trending down to 48/1.87 will monitor. today patient daughter is present in the room, gave updates and she is aware of AAA 4.6, [facility] patient is clinically stable, will discahrge patient today. Time Spent with Patient Time attestation: Total time spent providing and/or coordinating discharge services: Exam Narrative: Patient is comfortable, NAD HEENT: eyes are clear and none icteric LUNGS:CTA HEART: RR S1S2 ABD: BS+, Soft and nontender Lower extremities: no edema SKIN: nonjaundiced Neuro: grossly intact. DS: Data Data Completed and Pending Labs on day of discharge: Labs from last 24 hours 03/29/25 03/29/25 03/28/25 07:47 05:18 19:50 WBC 6.2 RBC 3.77 L Hgb 10.7 L Hct 33.5 L MCV 88.9 MCH 28.4 MCHC 31.9 L RDW 13.8 Plt Count 155 MPV 9.8 Sodium 141 Potassium 3.7 Chloride 112 H Carbon Dioxide 21 L Anion Gap 8 BUN 41 H Creatinine 1.56 H Estim Creat Clear Calc 38 Estimated GFR 44 L Glucose 74 POC Capillary Glucose 84 123 H Hemoglobin A1c Calcium 8.6 Magnesium 2.2 03/28/25 05:52 WBC RBC Hgb Hct MCV MCH MCHC RDW Plt Count MPV Sodium Potassium Chloride Carbon Dioxide Anion Gap BUN Creatinine Estim Creat Clear Calc Estimated GFR Glucose POC Capillary Glucose Hemoglobin A1c 5.2 Calcium Magnesium Discharge Plan Discharge Attending physician on discharge: Neeta Reyna Consulting providers: Barrett Wilcox; Derek Kaur; Sonam Henson; Abdulaziz Huertas Discharging Clinician: Neeta Reyna Patient Disposition: Home Activity: as tolerated Diet: heart healthy Discharge Instructions: patient to follow up with his primary care provider by Saturday or SaturdayMarch 30 or to check his kidney function. patient and his daughter are instructed to consult a vascular surgeon for his abdominal aneurysm as soon as possible, patient is instructed if any symptoms worsen to go to nearest ER. Patient Language: Burmese Stand Alone Forms: General Discharge Information Follow-up/Referrals: [facility] [Primary Care Provider] - Discharge Medications: New amlodipine [Norvasc] 5 mg Tablet 5 mg PO DAILY Qty: 30 0RF losartan 25 mg Tablet 25 mg PO DAILY Qty: 30 0RF amoxicillin-pot clavulanate [Augmentin] 500-125 mg tablet 1 tablet PO Q8H Qty: 6 0RF Continued bupropion HCl 150 mg Tablet Sustained-Release 12 Hr 150 mg PO DAILY atorvastatin 80 mg Tablet 40 mg PO HS terazosin 5 mg Tablet 5 mg PO DAILY nitroglycerin 0.4 mg Tablet, Sublingual 0.4 mg SUBLINGUAL Q5M PRN (Reason: Chest Pain) finasteride 5 mg Tablet 5 mg PO DAILY duloxetine 60 mg Capsule,Delayed Release(Dr/Ec) 60 mg PO Q12H acetaminophen 500 mg tablet 1,000 mg PO TID PRN (Reason: hugo) 7 Days Qty: 42 0RF ondansetron 4 mg tablet,disintegrating 4 mg PO Q8H PRN (Reason: nausea and vomiting) Qty: 30 0RF tamsulosin [Flomax] 0.4 mg capsule 0.4 mg PO DAILY Qty: 30 0RF methocarbamol 500 mg Tablet 500 mg PO TID PRN (Reason: Muscle Pain) melatonin 3 mg Tablet 9 mg PO HS PRN (Reason: Insomnia) sodium bicarbonate 650 mg Tablet 650 mg PO DAILY levothyroxine [Synthroid] 50 mcg Tablet 50 mcg PO DAILY pantoprazole [Protonix] 40 mg Tablet,Delayed Release (Dr/Ec) 40 mg PO QAM mirabegron 50 mg Tablet Extended Release 24 Hr 50 mg PO DAILY hydroxyzine HCl 10 mg Tablet 20 mg PO HS Date of admission: 03/25/25 16:11 Primary Care Provider: [facility] Admitting Provider: Neeta Reyna Attending physician on admission: Neeta Reyna Condition: Stable
--- NOTE | 2025-03-29 09:55 | PC.NURSE ---
Spoke with Rory Medellin, son, regarding discharge and importance to follow up with primary MD to monitor kidney function. Rory verbalized understanding of information discussed.
[2025-03-29 11:54] LABS: Glucose Point of Care 94 mg/dl (65-105)
== END 2025-03-29 13:15 | disposition home or self-care (01) | DRG 313 ==
LOC: ANHED 07:33 → ANHIMU 08:19 → ANH3MEDSUR 03-26 06:44
PROVIDERS: Nurse Practitioner; Admitting Provider Family Medicine; Emergency Provider Student in an Organized Health Care Education/Training Program; Visit Provider Family Medicine
DX: R07.89 Other chest pain (principal); D64.9 Anemia, unspecified; D72.829 Elevated white blood cell count, unspecified; I25.10 Atherosclerotic heart disease of native coronary artery without angina pectoris; E78.5 Hyperlipidemia, unspecified; I12.9 Hypertensive chronic kidney disease with stage 1 through stage 4 chronic kidney disease, or unspecified chronic kidney disease; N18.30 Chronic kidney disease, stage 3 unspecified; N40.0 Benign prostatic hyperplasia without lower urinary tract symptoms; I71.21 Aneurysm of the ascending aorta, without rupture; E03.9 Hypothyroidism, unspecified; G47.33 Obstructive sleep apnea (adult) (pediatric); I25.2 Old myocardial infarction; Z87.891 Personal history of nicotine dependence; Z95.1 Presence of aortocoronary bypass graft
CPT/HCPCS: 36415; 36600; 70450; 71045; 71275; 74174; 80048; 80053; 80061; 80143; 80179; 80307; 81001; 82077; 82140; 82550; 82805; 82948; 83036; 83605; 83690; 83735; 84443; 84484; 85018; 85025; 85027; 85610; 85730; 93005; 93306; 96361; 96372; 96374; 96375; 99285; A9270; G0378; J1171; J1650; J1938; J2543; J7030; Q9967

== ENCOUNTER 2025-03-30 12:57 | Emergency (ER) | payer MEDICARE, OTHER, SELFPAY ==
[2025-03-30] VITALS (9 sets, daily range): BP systolic 177–201; BP diastolic 87–122; PULSE 56–92; RESP 15–20; TEMP 36.4–36.6; O2SAT 94–100
--- NOTE | ~2025-03-30 | CT_ITS ---
CTA chest abdomen pelvis Ordering provider: Pedro Ahn MD History: . Abdominal pain, htn, known AAA . Comparison: March 24, 2025 Technique: CT angiogram chest, abdomen and pelvis was performed following timed intravenous injection of contrast. Thin slice axial images and reformatted coronal images were obtained. Three dimensional reformatted images of the chest were also obtained using a Vitrea workstation. Radiation reduction technique utilized. The dose-length product was 804.729 mGy-cm. 100 mL Omnipaque 350 was given IV. FINDINGS: CHEST: --THORACIC AORTA: Mild atheromatous disease. No dissection or mediastinal hematoma. Ascending aorta m easures 4.4 cm. --GREAT VESSELS: Normal as visualized. --PULMONARY ARTERIES: No pulmonary embolus. --VISUALIZED THORACIC INLET: Normal. --MEDIASTINUM: Coronary arteries: Mild atheromatous disease. Heart/other: The heart is not enlarged. Lymph nodes: No mediastinal or hilar adenopathy. --LUNGS: Interstitial changes are seen in the lung bases. No pulmonary nodules or masses. No infiltrates or ef fusions. No pneumothorax. --MUSCULOSKELETAL: Superficial soft tissues: The superficial soft tissues are normal. Bones: Age appropriate degenerative changes of the spine. ABDOMEN/PELVIS: --MUSCULOSKELETAL: Bones: Age appropriate degenerative changes of the spine. Left hip arthroplasty. Right hip osteoarthr itic changes. Pubic symphysitis. Severe right hip osteoarthritic changes. Superficial soft tissues: The superficial soft tissues are normal. --UPPER ABDOMINAL ORGANS: Liver: Lobulated outline of the liver which is suggestive of liver cirrhosis. Clinical correlation ad vised. Gallbladder: Distended with no stones. Spleen: Normal. Stomach/duodenum: Thickening of the lower esophagus which may indicate reflux esophagitis. Pancreas: Atrophic. Possibility of tiny cystic area measuring 1.3 cm in the tail of the pancreas is n ot excluded. Follow-up advised. Adrenals: Normal. Kidneys: Small cyst in the right kidney lower pole. Multiple cysts in the left kidney with the larges t measures 3.3 cm. Slight bilateral dilatation of the renal pelvis with no ureteric stones. --PELVIC ORGANS: The bladder is normal. No bladder stones. --BOWEL AND MESENTERY: Colon: No evidence of diverticulitis.. The appendix is not demonstrated. Small Bowel: Normal. No obstruction. Peritoneum/mesentery: No free air or free fluid. No mesenteric lymphadenopathy. --RETROPERITONEUM: No retroperitoneal lymphadenopathy. --ARTERIES: ABDOMINAL AORTA: Abdominal aortic aneurysm is seen measuring 3.4 x 3.7 cm. Mild atheromatous diseas e. No dissection. RENAL ARTERIES: Atherosclerotic changes. CELIAC AXIS: Atherosclerotic changes. SMA: Atherosclerotic changes. ANGIE: Atherosclerotic changes at the origin. ILIAC AND VISUALIZED FEMORAL ARTERIES: Bilateral dilated proximally with atherosclerotic changes. T he right measures 2 cm. The left measures 1.5 cm. MESENTERIC ARTERIES: Normal. IMPRESSION: CHEST: 1. Aneurysmal dilatation of the ascending aorta measuring 4.4 cm. No change from previous examinatio n. 2. Interstitial changes of the lungs. 3. No acute cardiopulmonary pathology ABDOMEN/PELVIS: 1. Abdominal aortic aneurysm measuring 3.7 x 3.4 cm. No change from previous examination. 2. Liver cirrhosis. Clinical correlation advised. 3. Possible cystic area in the tail of the pancreas. Follow-up advised. 4. Minimal fullness of the renal pelvis bilaterally with no definite stones. Bilateral renal cysts. 5. Thickened distal esophagus which may indicate reflux esophagitis. Reviewed, dictated and finalized at location A. IMPRESSION: CHEST: 1. Aneurysmal dilatation of the ascending aorta measuring 4.4 cm. No change fr om previous examination. 2. Interstitial changes of the lungs. 3. No acute cardiopulmonary pathology ABDOMEN/PELVIS: 1. Abdominal aortic aneurysm measuring 3.7 x 3.4 cm. No change from previous e xamination. 2. Liver cirrhosis. Clinical correlation advised. 3. Possible cystic area in the tail of the pancreas. Follow-up advised. 4. Minimal fullness of the renal pelvis bilaterally with no definite stones. B ilateral renal cysts. 5. Thickened distal esophagus which may indicate reflux esophagitis.
[2025-03-30 13:56] LABS: Estimated CRCL calculation 40 ml/min; Estimated Glomerular Filt Rate 46
[2025-03-30 13:58] LABS: Alanine Aminotransferase 15 U/L (6-50); Albumin Level 3.8 g/dL (3.5-5.1); Alkaline Phosphatase 116 U/L (38-126); Anion Gap 11 mmol/L (4-12); Aspartate Amino Transferase 39 U/L (17-59); Bilirubin,Total 0.7 mg/dL (0.2-1.3); Blood Urea Nitrogen 27 mg/dL (9-20); Calcium 9.4 mg/dL (8.4-10.2); Carbon Dioxide 20 mmol/L (22-30); Chloride 109 mmol/L (98-107); Estimated CRCL calculation 45 ml/min; Estimated Glomerular Filt Rate 53; Glucose 146 mg/dL (65-110); Lipase 124 U/L (23-300); Potassium 3.8 mmol/L (3.4-5.0); Sodium 140 mmol/L (137-145); Total Protein 6.7 g/dL (6.3-8.2)
[2025-03-30 14:01] LABS: Basophils Absolute Auto 0.1 K/mm3 (0.0-0.1); Basophils Percent Auto 0.7 % (0.2-1.2); Eosinophils Absolute Auto 0.6 K/mm3 (0-0.3); Eosinophils Percent Auto 8.2 % (0-4.4); Hematocrit 36.9 % (42.0-52.0); Hemoglobin 12.3 g/dL (14.0-18.0); Immature Granulocyte Absolute 0.09 K/mm3 (0.00-0.031); Immature Granulocyte Percent A 1.2 % (0-0.5); Lymphocytes Absolute Auto 1.27 K/mm3 (0.9-3.2); Lymphocytes Percent Auto 16.8 % (18.3-44.2); Mean Corpuscular HGB Conc 33.3 g/dl (32-36); Mean Corpuscular Hemoglobin 28.7 pg (26-34); Mean Platelet Volume 9.7 fl (7.4-10.4); Monocytes Absolute Auto 0.7 K/mm3 (0.1-0.6); Monocytes Percent Auto 9.4 % (2.6-8.5); Neutrophils Absolute Auto 4.8 K/mm3 (1.3-6.7); Neutrophils Percent Auto 63.7 % (45.5-73.1); Platelet Count Result 179 k/mm3 (150-375); Red Blood Count 4.29 M/mm3 (4.6-6.20); Red Cell Distribution Width 13.6 % (11.5-14.5); White Blood Count 7.6 K/mm3 (4.5-10.0)
--- OUTSIDE RECORDS SUMMARY | 2025-03-30 14:25 | XMS_ITS | Clinical Summary ---
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 Encounters Date Type Department Care Team Description 03/25/2025 Orders Only [facility] Cardiology [address] [place] [address] Mainor Wilcox MD from Last 3 Months Immunizations Immunization Administration Dates Next Due Influenza, [...] on file 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 Gender Identity Not on file Sexual [...] CDT Plan of Treatment Not on file Procedures Procedure Name Priority Date/Time Associated Diagnosis Comments CARDIOLOGY DOCUMENT SCAN Routine 025 11:56 AM CDT from Last 3 Months Results * Cardiology Document Scan (03/24/2025 11:56 AM CDT) Anatomical Region Laterality Modality Other us Mainor Wilcox MD CV CARDIAC SERVICES PROCED URES Final Result from Last 3 Months Insurance MEDICARE MEDICARE Care Teams Marketing Strategist Relationship Specialty Start Date End Date Diony Nicholson MD [address] [address] PCP - General Internal Medicine 05/05/18
--- OUTSIDE RECORDS SUMMARY | 2025-03-30 14:25 | XMS_ITS | Referral Summary ---
Author Organization [facility] [address] Address [address] [place] [address] Care Team Providers Care Lead Technician Name Role Phone Diony Nicholson MD Primary Care Provider [phone]- [phone] Encounters Date Type Department Care Team Description 03/25/2025 Orders Only [facility] Cardiology [address] [place] [address] Mainor Wilcox MD from Last 3 Months Allergies Active Allergy Reactions Criticality Noted Date [...] once at bedtime vial 0 3 Active gyunr-5r-xif-ep a-fish oil 300-1,000 mg capsule Take 2 [...] adult 03/22 Coronary artery disease invo lving [place] coronary artery of [place] heart without angina pectoris 05/13/2017 Dyslipidemia associated [...] on file 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
--- OUTSIDE RECORDS SUMMARY | 2025-03-30 14:25 | XMS_ITS | Clinical Summary ---
Author Organization [facility] Address [address] [place] [address] Care Team Providers Care Partition Assembler Name Role Phone Diony Nicholson MD Primary Care Provider [phone] Source Comments [facility],non-owned Affiliates and Associated Physician Practices is amultiple site organization consisting of ambulatory clinics and hospital sitesin [place], [place], [place] and [place]. This disclosure is being madepursuant to the Care Everywhere program and may not contain all information available regarding this patient. Last updated 18.[facility] Allergies No known active allergies Medications * [...] and heating? Not hard at all 09/08/2024 [facility] [...] any time in the past 12 m [facility], were you homeless or living in a assisted (including now)? 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 Pulse 82 09/10/2024 7:48 AM TECHNICAL SALES DIRECTOR Temperature 37.3 C (99.2 F) 09/10/2024 7:48 AM TECHNICAL SALES DIRECTOR Respiratory Rate 18 09/10/2024 7:48 AM TECHNICAL SALES DIRECTOR Oxygen Saturation 94% 09/10/2024 7:48 AM TECHNICAL SALES DIRECTOR Inhaled Oxygen Concentration - - Weight 80.7 kg (178 lb) 09/08/2024 7:43 PM TECHNICAL SALES DIRECTOR Height 177.8 cm (5' 10) 09/08/2024 7:43 PM TECHNICAL SALES DIRECTOR Body Mass Index 25.54 09/08/2024 7:43 PM TECHNICAL SALES DIRECTOR Plan of Treatment Health Maintenance Due Date [...] age to complete this topic Insurance MEDICARE [facility] Advance Directives * Full Code (Latest Code Status on File) Date Activated Date Inactivated Comments 09/08/2024 7:53 PM 09/10/2024 5:35 PM Care Teams Partition Assembler Relationship Specialty Start Date End Date Diony Nicholson MD [address] [place] [address] PCP - General Internal Medicine 09/08/24
--- OUTSIDE RECORDS SUMMARY | 2025-03-30 14:25 | XMS_ITS | Encounter Summary ---
Author Organization [facility] Address [address] [place] [address] Care Team Providers Care Chain Builder Name Role Phone Diony Nicholson MD Primary Care Provider [phone] Encounter Details Date Type Department Care Team (Late st Contact Info) Description 03/25/2025 Orders Only [facility] Cardiology [address] [place] [id number] Mainor Wilcox MD [address] [place] [address] Social History Tobacco Use Types Packs/Day Years Used Date Smoking Tobacco: Former Smokeless Tobacco: Never Alcohol Use Standard Drinks/Week Comments Yes 0 (1 standard drink = 0.6 oz pur e alcohol) Sex and Gender Information Value Date Recorded Sex Assigned at Not on file 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 Gender Identity Not on file Sexual Orientation Not on file documented as of this encounter Plan of Treatment Not on file documented as of this encounter Procedures Procedure Name Priority Date/Time Associated Diagnosis Comments CARDIOLOGY DOCUMENT SCAN Routine 025 11:56 AM CDT documented in this encounter Results * Cardiology Document Scan (03/24/2025 11:56 AM CDT) Anatomical Region Laterality Modality Other Mainor Wilcox MD CV CARDIAC SERVICES PROCED URES Final Result documented in this encounter Visit Diagnoses Not on filedocumented in this encounter Care Teams Chain Builder Relationship Specialty Start Date End Date Diony Nicholson MD [address] [place] [address] PCP - General Internal Medicine 05/05/18 documented as of this encounter
[2025-03-30 14:45] LABS: Add Urine Microscopic? YES; Appearance Urine Cloudy (Clear); Bacteria Urine None Seen /hpf; Bilirubin Urine Negative (Negative); Blood Urine 3+ (Negative); Color Urine Yellow (Yellow); Glucose Urine UA Negative (Negative); Ketones Urine 1+ mg/dL (Negative); Leukocyte Esterase Ur Trace LEU/UL (Negative); Nitrate Urine Negative (Negative); Non Pathogenic Casts 0-2; Protein Urine 1+ mg/dL (Negative); RBC Urine >100 /hpf (0-2); Specific Grav Ur 1.018 (1.001-1.035); Squamous Epithelial Cell Urine None Seen /hpf (Few); Urobilinogen Urine 0.2 mg/dL (<2.0); WBC Urine 0-5 /hpf (0-3); pH Urine 5.5 (5.0-9.0)
[2025-03-30] MEDS: HYDROmorphone HCL INJ (*CRX) 2 MG/ML VIAL 0.5 MG IV PUSH ×2 (14:53→15:43)
[2025-03-30] MEDS: LABETALOL HCL INJ 100 MG/20 ML VIAL 20 MG IV PUSH (14:53)
--- NOTE | 2025-03-30 15:07 | ED_ITS ---
HPI - General Adult General Chief complaint: Nausea/Vomiting/Diarrhea Stated complaint: Abdominal pain Time Seen by Provider: 03/30/25 13:14 History of Present Illness HPI narrative: This is a 74-year-old male history of thoracic and abdominal aneurysms cyclic vomiting presenting for abdominal pain. Pain since he woke this morning with epigastric abdominal pain radiating to his back. Stabbing in nature. It comes and goes. He has been having this pain over the last several days and says that while he was is in hospital although review of the EMR shows he was admitted for chest pain negative workup and there was no mention of abdominal pain. Patient did have several episodes of vomiting. Patient admits that when he developed hit the pain that he ?panicked.? Patient has not seen a vascular surgeon yet. On his last admission a consult was placed to [facility] vascular service and they felt he could safely follow up on outpatient basis. Patient denies fevers chest pain difficulty breathing urinary symptoms diarrhea. He is still using marijuana. Is not taking any of his home medications since he left the hospital. Related Data Home Medications ?Medication ?Instructions ?Recorded ?Confirmed ?Last Taken ?Type atorvastatin 80 mg tablet 40 mg PO HS 08/03/20 03/24/25 03/23/25 History bupropion HCl 150 mg tablet,12 hr 150 mg PO DAILY 08/03/20 03/24/25 03/23/25 History sustained-release duloxetine 60 mg capsule,delayed 60 mg PO Q12H 08/03/20 03/24/25 03/23/25 History release finasteride 5 mg tablet 5 mg PO DAILY 08/03/20 03/24/25 03/23/25 History nitroglycerin 0.4 mg sublingual 0.4 mg sublingual Q5M PRN Chest 08/03/20 03/24/25 08/09/20 History tablet Pain terazosin 5 mg tablet 5 mg PO DAILY 08/03/20 03/24/25 03/23/25 History hydroxyzine HCl 10 mg tablet 20 mg PO HS 03/31/24 03/24/25 03/23/25 History levothyroxine 50 mcg tablet 50 mcg PO DAILY 03/31/24 03/24/25 03/23/25 History (Synthroid) melatonin 3 mg tablet 9 mg PO HS PRN Insomnia 03/31/24 03/24/25 03/23/25 History methocarbamol 500 mg tablet 500 mg PO TID PRN Muscle Pain 03/31/24 03/24/25 Unknown History mirabegron 50 mg tablet,extended 50 mg PO DAILY 03/31/24 03/24/25 03/23/25 History release 24 hr pantoprazole 40 mg tablet,delayed 40 mg PO QAM 03/31/24 03/24/25 03/23/25 History release (Protonix) sodium bicarbonate 650 mg tablet 650 mg PO DAILY 03/31/24 03/24/25 03/23/25 History Allergies Allergy/AdvReac Type Severity Reaction Status Date / Time niacin AdvReac Intermediate Other Verified 03/24/25 10:16 isosorbide dinitrate AdvReac Intermediate Headache Uncoded 03/24/25 10:16 [facility] Past Medical History Medical History (Updated 03/30/25 @ 17:29 by Pedro Ahn MD) History of myocardial infarct at age less than 60 years 41yo, denies stent Hypothyroidism BPH (benign prostatic hyperplasia) Presumed as the patient is on terazosin and finasteride Carpal tunnel syndrome, bilateral CKD (chronic kidney disease) stage 3, GFR 30-59 ml/min Morbid obesity Patient used to weigh 127 kg in 2019 down to 87 kg current 03/2024 MARLENY (obstructive sleep apnea) Noncompliant with CPAP Hypertension Hyperlipidemia CAD (coronary artery disease) Surgical History Surgical History S/P CABG x 4 Family History Family History Daughter No problems noted. Mother Acute myocardial infarction Uterine cancer Father Colon cancer Social History Social History Social History: Patient lives with his of approximately 4 years. He used to smoke 2.5 packs of cigarettes per day from the time he was teenager until 2019. He denies any history of heavy alcohol use. He does use marijuana on a daily basis. Code status: Full code Surrogate decision maker: Claudia () Smoking packs per day: 2.5 Smoking cigarettes per day: 50.0 Years smoked: 20 Smoking pack-years: 50.00 Smoking status: Former smoker Tobacco type: cigarettes Second hand tobacco smoke exposure: Yes Smoking end date: 10/21/22 Additional smoking assessment comments: quit in 1998 Alcohol intake: never Drinks per week: 1 Substance use: current Substance use type: marijuana Other substance usage details: daily marijuana Last use: 03/29/24 Do You Feel Safe in your Home?: Yes Lack of Transportation: No Lack of Food: Never True Current Housing: I Have Housing Concerned About Future Housing: No Difficulty Paying Gas/Electric Bills: No Difficulty Paying for Meds: No Currently Unemployed: No Education: Bachelor's Degree Difficulty w/ Childcare or Family Care: No Spiritual care concerns: No Exam 2 Narrative: APPEARANCE: No apparent distress. Well-appearing Head: atraumatic. EYES: EOMI, NOSE: Atraumatic NECK: Trachea midline RESPIRATORY: No increased rate of breathing CTAB CARDIOVASCULAR: RRR, no peripheral ABDOMINAL: Nondistended, soft nontender no guarding rebound, no pulsatile mass MUSCULOSKELETAl: No obvious deformities NEURO: Alert. Moving 4/4 extremities SKIN:: Warm, dry. Normal color PSYCHIATRIC: Normal affect Course Vital Signs Vital signs: Vital Signs Temperature 97.8 F 03/30/25 12:57 Pulse Rate 56 L 03/30/25 12:57 Respiratory Rate 15 03/30/25 12:57 Blood Pressure 201/107 H 03/30/25 12:57 Pulse Oximetry 100 03/30/25 12:57 Oxygen Delivery Room Air 03/30/25 12:57 Temperature 97.8 F 03/30/25 12:57 Pulse Rate 65 03/30/25 15:46 Respiratory Rate 20 03/30/25 15:46 Blood Pressure 192/101 H 03/30/25 15:46 Pulse Oximetry 98 03/30/25 15:46 Oxygen Delivery Room Air 03/30/25 12:57 Medical Decision Making [facility] Narrative Medical decision making narrative: -Course: 74-year-old male history of cyclic vomiting a known abdominal aortic aneurysm presenting with abdominal pain. Patient says the abdominal pain is been going on for last 3-4 days although I reviewed his recent hospital stay and is no mention of abdominal pain at that time. CTA was obtained to evaluate his aneurysms and those are unchanged. Patient blood pressure was elevated although he had not taken any of his home hypertension meds after leaving the hospital. He was given a dose of labetalol with improvement. Urine with greater than 100 RBCs but no urinary symptoms or white blood cells to indicate infection. This can be followed by his primary care physician. On re-evaluation patient resting comfortably in bed. His blood pressures have improved. His abdominal exam is benign. His pain has resolved. Discussed admission versus discharge the patient is comfortable being discharged home following with primary care physician. Patient will be discharged with return precautions. -DDX includes but is not limited to: Ruptured AAA, cyclic vomiting syndrome, gastroenteritis, gastritis/peptic ulcer disease, arthritis, pneumonia Independent EKG interpretation: Rhythm [sinus], Rate [67], Energy -[normal], OH -[normal], QRS [narrow], QTC [normal], T waves -[negative for concerning inversions], ST Segments - [Negative for concerning elevations] Final interpretations: [Normal Sinus Rhythm] Vital Signs Vital Signs: Vital Signs Temperature 97.8 F 03/30/25 12:57 Pulse Rate 56 L 03/30/25 12:57 Respiratory Rate 15 03/30/25 12:57 Blood Pressure 201/107 H 03/30/25 12:57 Pulse Oximetry 100 03/30/25 12:57 Oxygen Delivery Room Air 03/30/25 12:57 Temperature 97.8 F 03/30/25 12:57 Pulse Rate 65 03/30/25 15:46 Respiratory Rate 20 03/30/25 15:46 Blood Pressure 192/101 H 03/30/25 15:46 Pulse Oximetry 98 03/30/25 15:46 Oxygen Delivery Room Air 03/30/25 12:57 Lab Data 03/30/25 13:28 03/30/25 13:55 Labs: Lab Results 03/30/25 03/30/25 03/30/25 Range/Units 13:28 13:55 14:33 WBC 7.6 (4.5-10.0) K/mm3 RBC 4.29 L (4.6-6.20) M/mm3 Hgb 12.3 L (14.0-18.0) g/dL Hct 36.9 L (42.0-52.0) % MCV 86.0 (80-100) fl MCH 28.7 (26-34) pg MCHC 33.3 (32-36) g/dl RDW 13.6 (11.5-14.5) % Plt Count 179 (150-375) k/mm3 MPV 9.7 (7.4-10.4) fl Immature Gran % (Auto) 1.2 H (0-0.5) % Neut % (Auto) 63.7 (45.5-73.1) % Lymph % (Auto) 16.8 L (18.3-44.2) % Borden % (Auto) 9.4 H (2.6-8.5) % Eos % (Auto) 8.2 H (0-4.4) % Baso % (Auto) 0.7 (0.2-1.2) % Lymph # (Auto) 1.27 (0.9-3.2) K/mm3 [place] # (Auto) 0.7 H (0.1-0.6) K/mm3 Eos # (Auto) 0.6 H (0-0.3) K/mm3 Baso # (Auto) 0.1 (0.0-0.1) K/mm3 Abs Immat Gran (auto) 0.09 H (0.00-0.031) K/mm3 Absolute Neuts (auto) 4.8 (1.3-6.7) K/mm3 Absolute Nucleated RBC 0.000 (0.0-0.012) K/mm3 Nucleated RBC % 0.0 (0.0-0.2) % Sodium 140 (137-145) mmol/L Potassium 3.8 (3.4-5.0) mmol/L Chloride 109 H (98-107) mmol/L Carbon Dioxide 20 L (22-30) mmol/L Anion Gap 11 (4-12) mmol/L BUN 27 H D (9-20) mg/dL Creatinine 1.32 H 1.50 (0.7-1.3) mg/dL Estim Creat Clear Calc 45 40 ml/min Estimated GFR 53 L 46 L (59 - ) Glucose 146 H (65-110) mg/dL Calcium 9.4 (8.4-10.2) mg/dL Total Bilirubin 0.7 (0.2-1.3) mg/dL AST 39 (17-59) U/L ALT 15 (6-50) U/L Alkaline Phosphatase 116 (38-126) U/L Total Protein 6.7 (6.3-8.2) g/dL Albumin 3.8 (3.5-5.1) g/dL Lipase 124 (23-300) U/L Urine Color Yellow (Yellow) Urine Appearance Cloudy H (Clear) Urine pH 5.5 (5.0-9.0) Ur Specific [place] 1.018 (1.001-1.035) Urine Protein 1+ H (Negative) mg/dL Urine Glucose (UA) Negative (Negative) mg/dL Urine Ketones 1+ H (Negative) mg/dL Ur Blood (Man) 3+ H (Negative) Urine Nitrate Negative (Negative) Urine Bilirubin Negative (Negative) Urine Urobilinogen 0.2 (<2.0) mg/dL Leukocyte Esterase Rfl Trace H (Negative) VANNESSA/UL Urine RBC >100 H (0-2) /hpf Urine WBC 0-5 (0-3) /hpf Ur Squamous Epith Cells None seen (Few) /hpf Urine Bacteria None seen /hpf Urine Casts 0-2 Discharge Plan Discharge Clinical Impression: Abdominal pain, Hematuria Patient Disposition: Home Condition: Stable Instructions: Antibiotic Form, Abdominal Pain (ED) Additional Instructions: He was seen in the emergency department for abdominal pain. Her symptoms have improved. Your abdominal aortic aneurysm is unchanged. It is important that you follow-up with the vascular surgeon provided on [facility] If you develop severe abdominal pain, dizziness lightheadedness please return to the ED for repeat evaluation immediately. Your blood pressures are elevated need to make sure you are taking her antihypertensives at home. Additionally had some blood in your urine. Please follow-up with your primary care physician to ensure this resolves. If you developed inability to urinate, pain on urination or increased urgency or frequency return to the ED or see your primary care physician for further management. Patient Language: Urdu Prescriptions: No Action bupropion HCl 150 mg Tablet Sustained-Release 12 Hr 150 mg PO DAILY atorvastatin 80 mg Tablet 40 mg PO HS terazosin 5 mg Tablet 5 mg PO DAILY nitroglycerin 0.4 mg Tablet, Sublingual 0.4 mg SUBLINGUAL Q5M PRN (Reason: Chest Pain) finasteride 5 mg Tablet 5 mg PO DAILY duloxetine 60 mg Capsule,Delayed Release(Dr/Ec) 60 mg PO Q12H acetaminophen 500 mg tablet 1,000 mg PO TID PRN (Reason: hugo) 7 Days Qty: 42 0RF ondansetron 4 mg tablet,disintegrating 4 mg PO Q8H PRN (Reason: nausea and vomiting) Qty: 30 0RF tamsulosin [Flomax] 0.4 mg capsule 0.4 mg PO DAILY Qty: 30 0RF methocarbamol 500 mg Tablet 500 mg PO TID PRN (Reason: Muscle Pain) melatonin 3 mg Tablet 9 mg PO HS PRN (Reason: Insomnia) sodium bicarbonate 650 mg Tablet 650 mg PO DAILY levothyroxine [Synthroid] 50 mcg Tablet 50 mcg PO DAILY pantoprazole [Protonix] 40 mg Tablet,Delayed Release (Dr/Ec) 40 mg PO QAM mirabegron 50 mg Tablet Extended Release 24 Hr 50 mg PO DAILY hydroxyzine HCl 10 mg Tablet 20 mg PO HS amlodipine [Norvasc] 5 mg Tablet 5 mg PO DAILY Qty: 30 0RF losartan 25 mg Tablet 25 mg PO DAILY Qty: 30 0RF amoxicillin-pot clavulanate [Augmentin] 500-125 mg tablet 1 tablet PO Q8H Qty: 6 0RF Follow-up/Referrals: [facility] [Primary Care Provider] - 2 Days
--- NOTE | 2025-03-30 17:21 | ECG_ITS ---
Test Date: 2025-03-30 17:29:05 Measurements Intervals [place] Rate: 67 P: 63 SC: 234 QRS: 63 QRSD: 103 T: 46 QT: 414 QTc: 438 Interpretive Statements SINUS RHYTHM WITH SINUS ARRHYTHMIA WITH FIRST DEGREE AV BLOCK ABNORMAL ECG Compared to ECG 03/24/2025 10:45:36 NO SIGNIFICANT CHANGE Electronically Signed On 03-30-2025 20:14:15 CDT by Derek Kaur D.O.
== END 2025-03-30 17:47 | disposition home or self-care (01) ==
PROVIDERS: Emergency Medicine; Emergency Provider Emergency Medicine
DX: I12.9 Hypertensive chronic kidney disease with stage 1 through stage 4 chronic kidney disease, or unspecified chronic kidney disease (principal); N18.30 Chronic kidney disease, stage 3 unspecified; I25.2 Old myocardial infarction; E03.9 Hypothyroidism, unspecified; E78.5 Hyperlipidemia, unspecified; N40.0 Benign prostatic hyperplasia without lower urinary tract symptoms; Z95.1 Presence of aortocoronary bypass graft; Z87.891 Personal history of nicotine dependence
CPT/HCPCS: 36415; 71275; 74174; 80053; 81001; 83690; 85025; 93005; 96374; 96375; 99284; J1171; Q9967

== ENCOUNTER 2025-04-24 15:31 | Observation (INO) | payer MEDICARE, OTHER, SELFPAY ==
[2025-04-24] VITALS (20 sets, daily range): BP systolic 70–114; BP diastolic 49–68; PULSE 89–106; RESP 15–24; TEMP 36.9; O2SAT 86–100
--- NOTE | ~2025-04-24 | XR_ITS ---
EXAMINATION: XR chest 1V portable Exam Date/Time: 04/24/2025 16:00 CDT HISTORY: WEAKNESS Comparison: 03/24/2025 x-ray chest and CTPA; CTA chest 03/30/2025. RESULT: Lines, tubes, and devices: None. Lungs and pleura: Moderate streaky and reticular bibasilar opacities, increased from the prior study . Cardiomediastinal silhouette: Stable. Other: No acute osseous or upper abdominal finding. IMPRESSION: Edema/infection overlying chronic bibasilar interstitial disease. Reviewed, dictated and finalized at location K.
--- NOTE | ~2025-04-24 | CT_ITS ---
EXAMINATION: CTA chest abdomen pelvis DATE: 04/24/2025 20:28 INDICATION: hypotension, AAA/TAA history . TECHNIQUE: Computed tomography angiography of the chest, abdomen, and pelvis was performed with 100 m L Omnipaque-350 intravenous contrast in the arterial phase. Automated exposure control and iterative reconstruction technique were employed. The dose-length product was 583.12 mGy-cm. COMPARISON: None FINDINGS: CHEST: Thoracic aorta: The ascending aorta is dilated to 4.2 cm. No dissection. Mild arch calcification. Lung parenchyma and airways: No pneumothorax or focal consolidation. Peripheral and basilar reticular interstitial changes with early honeycombing. Thoracic inlet, axillae and chest wall: No thyroid or soft tissue mass. No axillary lymphadenopathy. Mediastinum: Patulous fluid esophagus. Dilated central pulmonary arteries as can be seen with pulmona ry arterial hypertension Heart and pericardium: Normal heart size. No pericardial effusion. Coronary artery calcifications: Moderate. Pleura: No effusion or mass. Thoracic bones: No acute osseous finding in the chest. ABDOMEN/PELVIS: Liver: Somewhat nodular appearing liver. Biliary/Gallbladder: Gallbladder is normal. No bile duct dilation. Pancreas: Atrophy. 9 mm pancreatic tail cyst Spleen: Normal. Adrenals:No mass. Kidneys: No suspicious mass, obstructing stone, or hydronephrosis. GI tract: No small or large bowel dilation. Normal appendix. Mesentery/Peritoneum: No ascites, mass, or free air. Retroperitoneum: No mass Atherosclerotic calcifications of intra-abdominal arterial vessels. Fusiform dilation of the infrarenal abdominal aorta, measuring up to 4.1 cm. Calcified and noncalcified plaqu e in the abdominal aorta. Small dissection flap within the aneurysm, unchanged. Severe stenosis of th e origin of the left renal artery. Mild dilation of the right common femoral artery measuring 2.0 cm Pelvis: Distended urinary bladder without wall thickening. Partial obscuration of pelvic contents by metal artifact. Soft Tissues: Soft tissues and body wall unremarkable. Partially visualized, uncomplicated appearing left hip arthroplasty hardware. Abdominopelvic bones: No acute osseous finding in the abdomen/pelvis. IMPRESSION: Ectasia of the ascending aorta measuring up to 4.2 cm. 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 Patulous, fluid-filled esophagus. Possible liver cirrhosis. 9 mm pancreatic tail cyst, recommend follow-up in 2 years. Fusiform infrarenal abdominal aortic aneurysm measuring up to 4.1 cm, with small dissection flap, unc hanged. Recommend follow-up in one year. Severe left renal artery origin stenosis. 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 Reviewed, dictated and finalized at location K. IMPRESSION: Ectasia of the ascending aorta measuring up to 4.2 cm. 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 Patulous, fluid-filled esophagus. Possible liver cirrhosis. 9 mm pancreatic tail cyst, recommend follow-up in 2 years. Fusiform infrarenal abdominal aortic aneurysm measuring up to 4.1 cm, with smal l dissection flap, unchanged. Recommend follow-up in one year. Severe left renal artery origin stenosis. 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
--- NOTE | 2025-04-24 15:58 | ECG_ITS ---
Test Date: 2025-04-24 16:15:40 Measurements Intervals [place] Rate: 91 P: 42 MS: 214 QRS: 65 QRSD: 108 T: 13 QT: 379 QTc: 468 Interpretive Statements SINUS RHYTHM WITH FIRST DEGREE AV BLOCK POSSIBLE INFERIOR MYOCARDIAL INFARCTION , PROBABLY OLD [30 ms Q WAVE IN II/aVF] Compared to ECG 03/30/2025 17:29:05 Myocardial infarct finding now present Sinus arrhythmia no longer present Electronically Signed On 04-25-2025 13:38:11 CDT by Abel Mejia M.D.
[2025-04-24 16:27] LABS: Hematocrit 31.0 % (42.0-52.0); Hemoglobin 10.2 g/dL (14.0-18.0); Immature Granulocyte Percent A 0.6 % (0-0.5); Lymphocytes Absolute Auto 1.24 K/mm3 (0.9-3.2); Mean Corpuscular HGB Conc 32.9 g/dl (32-36); Mean Corpuscular Hemoglobin 28.8 pg (26-34); Mean Corpuscular Volume 87.6 fl (80-100); Nucleated Red Blood Cells Absolute Auto 0.000 K/mm3 (0.0-0.012); Nucleated Red Blood Cells Perc 0.0 % (0.0-0.2); Platelet Count Result 131 k/mm3 (150-375); Red Blood Count 3.54 M/mm3 (4.6-6.20); White Blood Count 4.9 K/mm3 (4.5-10.0)
[2025-04-24 16:36] LABS: Alanine Aminotransferase 11 U/L (6-50); Albumin Level 3.1 g/dL (3.5-5.1); Alkaline Phosphatase 88 U/L (38-126); Anion Gap 6 mmol/L (4-12); Aspartate Amino Transferase 27 U/L (17-59); Bilirubin,Total 0.5 mg/dL (0.2-1.3); Blood Urea Nitrogen 40 mg/dL (9-20); Calcium 8.5 mg/dL (8.4-10.2); Carbon Dioxide 25 mmol/L (22-30); Chloride 107 mmol/L (98-107); Estimated CRCL calculation 27 ml/min; Estimated Glomerular Filt Rate 31; Glucose 139 mg/dL (65-110); Potassium 3.5 mmol/L (3.4-5.0); Sodium 138 mmol/L (137-145); Total Protein 5.6 g/dL (6.3-8.2)
--- NOTE | 2025-04-24 19:26 | PC.NURSE ---
Report received from CORINNE Sheets. Assumed care of patient at this time. Patient's daughter calls to get update.
--- OUTSIDE RECORDS SUMMARY | 2025-04-24 19:30 | XMS_ITS | Clinical Summary ---
Author Organization [facility] Address [address] [place] [id number] Care Team Providers Care Refrigerating Machine Operator Name Role Phone Unavailable Primary Care Provider Unavailabl e Social History Tobacco Use Types Packs/Day Years Used Date Smoking Tobacco: Never Assessed Sex and Gender Information Value Date Recorded Sex Assigned at Not on file Legal Sex Male 1:40 AM CDT Gender Identity Not on file Sexual Orientation Not on file Plan of Treatment Health Maintenance Due Date Last Done Comments Hepatitis C 1968 DTaP, Tdap and Td Vaccines ( 1 - Tdap) 1968 Pneumococcal Vaccine: 50+ Ye ars (1 of 1 - PCV) 1999 Zoster Vaccines (1 of 2) 1999 RSV Immunization or 60+ Years (1 - 1-dose 75+ series) 2024 COVID-19 Vaccine ( - 2023-2 5 season) 2024 Meningococcal B Vaccine Aged Out No l onger eligible based on patient's age to complete this topic Meningococcal Vaccine Aged Out No yash jadiel eligible based on patient's age to complete this topic RSV Immunizations Under 20 Months Aged Out No longer eligible based on patient's age to complete this topic
--- OUTSIDE RECORDS SUMMARY | 2025-04-24 19:30 | XMS_ITS | Clinical Summary ---
Author Organization [facility] Address [address] [place] [address] Care Team Providers Care Screen Examiner Name Role Phone Diony Nicholson MD Primary Care Provider [phone] Source Comments [facility],non-owned Affiliates and Associated Physician Practices is amultiple site organization consisting of ambulatory clinics and hospital sitesin [place], [place], [place] and [place]. This disclosure is being madepursuant to the Care Everywhere program and may not contain all information available regarding this patient. Last updated 18.[employer] [facility] Allergies No known active allergies Medications * [...] and heating? Not hard at all 09/08/2024 [facility] - Occupational Stress [...] any time in the past 12 m [facility], were you homeless or living in a fci (including now)? No 09/08/2024 Sex and Gender Information Value Date Recorded Sex Assigned at Not on file Legal Sex Male 1:01 PM CDT Gender Identity Not on file Sexual Orientation Not on file Last Filed Vital Signs Vital Sign Reading Time Taken Comments Blood Pressure 107/46 09/10/2024 7:48 AM EMERGENCY DEPARTMENT MANAGER Pulse 82 09/10/2024 7:48 AM EMERGENCY DEPARTMENT MANAGER Temperature 37.3 C (99.2 F) 09/10/2024 7:48 AM EMERGENCY DEPARTMENT MANAGER Respiratory Rate 18 09/10/2024 7:48 AM EMERGENCY DEPARTMENT MANAGER Oxygen Saturation 94% 09/10/2024 7:48 AM EMERGENCY DEPARTMENT MANAGER Inhaled Oxygen Concentration - - Weight 80.7 kg (178 lb) 09/08/2024 7:43 PM EMERGENCY DEPARTMENT MANAGER Height 177.8 cm (5' 10) 09/08/2024 7:43 PM EMERGENCY DEPARTMENT MANAGER Body Mass Index 25.54 09/08/2024 7:43 PM EMERGENCY DEPARTMENT MANAGER Plan of Treatment Health Maintenance Due Date Last Done Comments MEDICARE AWV 12 MONTHS 1950 HEPATITIS C SCREENING 04/13/1968 DTAP/TDAP/TD VACCINES (1 - Tdap) 1968 PNEUMOCOCCAL VACCINE 50+ (1 of 1 - PCV) 1999 ZOSTER VACCINE (1 of 2) 1999 Respiratory Syncytial Virus (RSV) Vaccine Pt: or over 60 yrs (1 - 1-dose 75+ series) 2024 COVID-19 VACCINE ( season) 2024 09/11/2022, 01/03/2021, 12/13/2020 DEPRESSION SCREENING 10/21/2024 INFLUENZA VACCINE (#1) 2025 4, 09/30/2023, 09/03/2022, Additional history exists HEPATITIS B VACCINE [...] age to complete this topic Insurance MEDICARE [facility] Advance Directives * Full Code (Latest Code Status on File) Date Activated Date Inactivated Comments 09/08/2024 7:53 PM 09/10/2024 5:35 PM Care Teams Screen Examiner Relationship Specialty Start Date End Date Diony Nicholson MD [address] [place] [address] PCP - General Internal Medicine 09/08/24
--- OUTSIDE RECORDS SUMMARY | 2025-04-24 19:30 | XMS_ITS | Referral Summary ---
Author Organization [facility] [address] Address [address] [place] [address] Care Team Providers Care Jd Edwards Consultant Name Role Phone Diony Nicholson MD Primary Care Provider [phone] Encounters Date Type Department Care Team Description 03/25/2025 Orders Only [facility] Medical [facility] Cardiology [address] [place] [address] Mainor Wilcox MD from Last [...] once at bedtime vial 0 3 Active [id number] a-fish oil 300-1,000 mg capsule Take 2 [...] adult 03/22 Coronary artery disease invo lving [place] coronary artery of [place] heart without angina pectoris 05/13/2017 Dyslipidemia associated [...] on file 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
--- OUTSIDE RECORDS SUMMARY | 2025-04-24 19:30 | XMS_ITS | Clinical Summary ---
Author Organization [facility] [address] Address [address] [place] [address] Care Team Providers Care Blanching Machine Operator Name Role Phone Diony Nicholson MD Primary Care Provider [phone] Allergies Active Allergy Reactions Criticality Noted Date [...] once at bedtime vial 0 3 Active [id number] a-fish oil 300-1,000 mg capsule Take 2 [...] adult 03/22 Coronary artery disease invo lving [place] coronary artery of [place] heart without angina pectoris 05/13/2017 Dyslipidemia associated [...] Department Care Team Description 03/25/2025 Orders Only [facility] Medical Group Cardiology [address] [place] [address] Mainor Wilcox MD from Last [...] on file 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
[2025-04-24] MEDS: LACTATED RINGERS 1,000 ML 999 ML IV CONT ×3 (19:35→22:33)
--- NOTE | 2025-04-24 20:21 | ED_ITS ---
HPI - Weakness General Chief complaint: Weakness Stated complaint: hypotension Time Seen by Provider: 04/24/25 19:05 History of Present Illness HPI Narrative: 75-year-old male with a past medical history including AAA, thoracic aortic aneurysm, cyclic vomiting syndrome and marijuana abuse. Patient presents to the emergency depart with generalized malaise and weakness as well as hypotension. He states he has a blood pressure cuff at home and has been tracking his blood pressure today and was in the low 70s to 80s. He felt symptomatic and felt like he was going to pass out frequently. Got worse when he stood up and tried to ambulate. When he lays down and rests he feels better. No chest pain or chest pressure, abdominal pain, abdominal pressure, nausea, vomiting, headache, vision changes. No falls or syncope but states that any time he moves he feels like he is going to pass out. Stop using marijuana 1 week ago after being a lifelong smoker. No neurological complaints or deficits. Has been hydrating without any changes to his medication regimen or diet recently. Related Data Home Medications ?Medication ?Instructions ?Recorded ?Confirmed ?Last Taken ?Type atorvastatin 80 mg tablet 40 mg PO HS 08/03/20 04/25/25 03/23/25 History bupropion HCl 150 mg tablet,12 hr 150 mg PO DAILY 08/03/20 04/25/25 03/23/25 History sustained-release duloxetine 60 mg capsule,delayed 60 mg PO DAILY 08/03/20 04/25/25 03/23/25 History release finasteride 5 mg tablet 5 mg PO DAILY 08/03/20 04/25/25 03/23/25 History nitroglycerin 0.4 mg sublingual 0.4 mg sublingual Q5M PRN Chest 08/03/20 04/25/25 08/09/20 History tablet Pain terazosin 5 mg tablet 5 mg PO HS 08/03/20 04/25/25 03/23/25 History hydroxyzine HCl 10 mg tablet 50 mg PO HS 03/31/24 04/25/25 03/23/25 History levothyroxine 50 mcg tablet 50 mcg PO DAILY 03/31/24 04/25/25 03/23/25 History (Synthroid) melatonin 3 mg tablet 9 mg PO HS PRN Insomnia 03/31/24 04/25/25 03/23/25 History methocarbamol 500 mg tablet 500 mg PO TID PRN Muscle Pain 03/31/24 04/25/25 Unknown History mirabegron 50 mg tablet,extended 50 mg PO DAILY 03/31/24 04/25/25 03/23/25 History release 24 hr sodium bicarbonate 650 mg tablet 650 mg PO HS 03/31/24 04/25/25 03/23/25 History biotin 10,000 mcg capsule 10,000 mcg PO HS 04/25/25 04/25/25 Unknown History calcium carbonate (Tums) 650 mg PO DAILY 04/25/25 04/25/25 Unknown History cholecalciferol (vitamin D3) 125 125 mcg PO HS 04/25/25 04/25/25 Unknown History mcg (5,000 unit) tablet (Vitamin D3) famotidine 40 mg tablet 40 mg PO DAILY 04/25/25 04/25/25 Unknown History ferrous sulfate 325 mg (65 mg 325 mg PO HS 04/25/25 04/25/25 Unknown History iron) tablet (Feosol) gabapentin 600 mg tablet 600 mg PO DAILY 04/25/25 04/25/25 Unknown History lactobacillus combination no.4 3 3,000 mmu cells PO HS 04/25/25 04/25/25 Unknown History billion cell capsule (Probiotic) lamotrigine 25 mg tablet (Lamictal) 50 mg PO BID 04/25/25 04/25/25 Unknown History mecobalamin (vitamin B12) 2,500 2,500 mcg PO .M,W,F 04/25/25 04/25/25 Unknown History mcg chewable tablet [id number] 120 mcg-lutein 1 tablet PO DAILY 04/25/25 04/25/25 Unknown History 150 mcg-herb 50 mg chewable tablet (Alive Men's 50 Plus Multivitamin) omega 3,6,9-borage seed 2 cap PO DAILY 04/25/25 04/25/25 Unknown History oil-flaxseed oil-fish oil 1,233 mg capsule saw palmetto 500 mg capsule 500 mg PO HS 04/25/25 04/25/25 Unknown History tramadol 50 mg tablet 50 mg PO Q8H PRN pain 04/25/25 04/25/25 Unknown History trospium 60 mg capsule,extended 60 mg PO DAILY 04/25/25 04/25/25 Unknown History release 24 hr Allergies Allergy/AdvReac Type Severity Reaction Status Date / Time niacin AdvReac Intermediate Other Verified 04/25/25 04:25 isosorbide dinitrate AdvReac Intermediate Headache Uncoded 04/25/25 04:25 Review of Systems 2 Review of Systems: As reviewed above in HPI [facility] Past Medical History Medical History (Updated 04/25/25 @ 05:44 by Marquise Mahan MD) Aortic aneurysm Diastolic dysfunction History of myocardial infarct at age less than 60 years 41yo, denies stent Hypothyroidism BPH (benign prostatic hyperplasia) Presumed as the patient is on terazosin and finasteride Carpal tunnel syndrome, bilateral CKD (chronic kidney disease) stage 3, GFR 30-59 ml/min Morbid obesity Patient used to weigh 127 kg in 2019 down to 87 kg current 03/2024 MARLENY (obstructive sleep apnea) Noncompliant with CPAP Hypertension Hyperlipidemia CAD (coronary artery disease) Surgical History Surgical History S/P CABG x 4 Family History Family History Daughter No problems noted. Mother Acute myocardial infarction Uterine cancer Father Colon cancer Social History Social History (Updated 04/25/25 @ 04:36 by Kia Stevens DO) Social History: Patient lives with his of approximately 42 years. He used to smoke 2.5 packs of cigarettes per day from the time he was teenager until 2019. He denies any history of heavy alcohol use. He does use marijuana on a daily basis until the week of April. Code status: Full code Surrogate decision maker: Kia (daughter) Smoking packs per day: 2.5 Smoking cigarettes per day: 50.0 Years smoked: 20 Smoking pack-years: 50.00 Smoking status: Former smoker Tobacco type: cigarettes Second hand tobacco smoke exposure: Yes Smoking end date: 10/21/22 Additional smoking assessment comments: quit in 1998 Alcohol intake: never Drinks per week: 1 Substance use: current Substance use type: marijuana Other substance usage details: daily marijuana Last use: 03/29/24 Do You Feel Safe in your Home?: Yes Lack of Transportation: No Lack of Food: Never True Current Housing: I Have Housing Concerned About Future Housing: No Difficulty Paying Gas/Electric Bills: No Difficulty Paying for Meds: No Currently Unemployed: No Education: Bachelor's Degree Difficulty w/ Childcare or Family Care: No Spiritual care concerns: No Exam 2 Narrative: GENERAL: [Well-appearing, well-nourished, and in no acute distress.] HEAD: [Normocephalic, atraumatic.] EYES: [PERRLA and EOMI.] ENT: Nares clear, no rhinorrhea or epistaxis. Mucous membranes moist. NECK: Supple. CHEST: [Clear to auscultation. No respiratory distress.] HEART: [Regular rate and rhythm]. No murmur heard. [Normal peripheral pulses.] ABDOMEN: [Soft, nondistended], [nontender], [No rigidity or guarding] EXTREMITIES: Normal range of motion. [No edema.] SKIN: Warm, dry, no rash. NEURO: [No focal deficits]. Alert and oriented [x3.] PSYCH: [Normal mood and affect.] Course Vital Signs Vital signs: Vital Signs Temperature 36.9 C 04/24/25 15:30 Pulse Rate 95 04/24/25 15:30 Respiratory Rate 18 04/24/25 15:30 Blood Pressure 99/64 L 04/24/25 15:30 Pulse Oximetry 95 04/24/25 15:30 Oxygen Delivery Room Air 04/24/25 15:30 Temperature 36.9 C 04/24/25 15:30 Pulse Rate 84 04/25/25 03:02 Respiratory Rate 17 04/25/25 03:02 Blood Pressure 101/67 04/25/25 03:02 Pulse Oximetry 96 04/25/25 03:02 Oxygen Delivery Room Air 04/24/25 15:30 MDM - Weakness MDM Narrative Medical decision making narrative: 75-year-old male with a past medical history including AAA, thoracic aortic aneurysm, cyclic vomiting syndrome and marijuana abuse. Patient presents to the emergency depart with generalized malaise and weakness as well as hypotension. He states he has a blood pressure cuff at home and has been tracking his blood pressure today and was in the low 70s to 80s. He felt symptomatic and felt like he was going to pass out frequently. Got worse when he stood up and tried to ambulate. When he lays down and rests he feels better. No chest pain or chest pressure, abdominal pain, abdominal pressure, nausea, vomiting, headache, vision changes. No falls or syncope but states that any time he moves he feels like he is going to pass out. Stop using marijuana 1 week ago after being a lifelong smoker. No neurological complaints or deficits. Has been hydrating without any changes to his medication regimen or diet recently. Patient is noted to be hypotensive on arrival with EMS blood pressures in the low 80s. Here he is 99/64 in the stretcher. No tachycardia, tachypnea, fever or hypoxia. He has no abdominal tenderness on examination, clear breath sounds throughout but he did get a breathing treatment by EMS prior to arrival for some wheezing. He states he was not short of breath or feeling difficulty in breathing though. Patient does have some dry mucous membranes and given fluid resuscitation while workup was underway. Given his history of aneurysms will have to evaluate for any potential enlargement or changes, rupture which is unlikely given his lack of pain and benign examination. Electrolyte deficiencies, dehydration, infection also possible. CBC, CMP, lactic acid, chest x-ray, EKG and CT angiography of the chest abdomen pelvis were ordered. He was given 2 L of LR. Patient still had positive orthostatic vitals on repeat assessment after fluid boluses. He does have an acute kidney injury and likely intravascular volume depletion with low albumin. He was given additional fluids and albumin. His CT angiography shows no acute interval findings or concerns. 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 Laboratory studies without any leukocytosis or significant anemia, normal electrolytes, elevated BUN and creatinine from baseline YBOANY on CKD. Glucose 134. Negative lactic acid. Negative troponin, negative LFTs. Urinalysis with no signs of infection. Patient re-evaluated after additional fluids and abdomen and we attempted to ambulate him but he again had positive orthostatic vitals significantly and this improved while lying down flat. Discussed the case with Dr. Stevens the hospitalist who accepted the patient to the hospital for continued hydration and re-evaluation of his orthostatics. Patient made aware and agreeable for admission. Medical Records Attestation: I reviewed the patient's medical records. Lab Data Attestation: I reviewed the patient's lab results. 04/24/25 16:22 04/24/25 16:22 Labs: Lab Results 04/24/25 04/24/25 04/24/25 Range/Units 16:22 19:40 21:36 WBC 4.9 (4.5-10.0) K/mm3 RBC 3.54 L (4.6-6.20) M/mm3 Hgb 10.2 L (14.0-18.0) g/dL Hct 31.0 L (42.0-52.0) % MCV 87.6 (80-100) fl MCH 28.8 (26-34) pg MCHC 32.9 (32-36) g/dl RDW 14.6 H (11.5-14.5) % Plt Count 131 L (150-375) k/mm3 MPV 9.0 (7.4-10.4) fl Immature Gran % (Auto) 0.6 H (0-0.5) % Neut % (Auto) 65.8 (45.5-73.1) % Lymph % (Auto) 25.3 (18.3-44.2) % [place] % (Auto) 6.3 (2.6-8.5) % Eos % (Auto) 1.6 (0-4.4) % Baso % (Auto) 0.4 (0.2-1.2) % Lymph # (Auto) 1.24 (0.9-3.2) K/mm3 [place] # (Auto) 0.3 (0.1-0.6) K/mm3 Eos # (Auto) 0.1 (0-0.3) K/mm3 Baso # (Auto) 0.0 (0.0-0.1) K/mm3 Abs Immat Gran (auto) 0.03 (0.00-0.031) K/mm3 Absolute Neuts (auto) 3.2 (1.3-6.7) K/mm3 Absolute Nucleated RBC 0.000 (0.0-0.012) K/mm3 Nucleated RBC % 0.0 (0.0-0.2) % Sodium 138 (137-145) mmol/L Potassium 3.5 (3.4-5.0) mmol/L Chloride 107 (98-107) mmol/L Carbon Dioxide 25 (22-30) mmol/L Anion Gap 6 (4-12) mmol/L BUN 40 H D (9-20) mg/dL Creatinine 2.09 H (0.7-1.3) mg/dL Estim Creat Clear Calc 27 ml/min Estimated GFR 31 L (59 - ) Glucose 139 H (65-110) mg/dL Lactic Acid 1.4 (0.7-2.0) mmol/L Calcium 8.5 (8.4-10.2) mg/dL Total Bilirubin 0.5 (0.2-1.3) mg/dL AST 27 (17-59) U/L ALT 11 (6-50) U/L Alkaline Phosphatase 88 (38-126) U/L Troponin I < 0.012 (0.000-0.034) ng/mL Total Protein 5.6 L (6.3-8.2) g/dL Albumin 3.1 L (3.5-5.1) g/dL Urine Color Yellow (Yellow) Urine Appearance Cloudy H (Clear) Urine pH 5.0 (5.0-9.0) Ur Specific [place] 1.019 (1.001-1.035) Urine Protein Negative (Negative) mg/dL Urine Glucose (UA) Negative (Negative) mg/dL Urine Ketones Trace H (Negative) mg/dL Ur Blood (Man) Negative (Negative) Urine Nitrate Negative (Negative) Urine Bilirubin Negative (Negative) Urine Urobilinogen 0.2 (<2.0) mg/dL Add Ur Microanalysis Reviewed Leukocyte Esterase Rfl Trace H (Negative) VANNESSA/UL Urine RBC 6-10 H (0-2) /hpf Urine WBC 0-5 (0-3) /hpf Ur Squamous Epith Cells Moderate (Few) /hpf Triple Phos Crystals Present H (None) /hpf Urine Bacteria None seen /hpf Urine Casts 3-5 Urine Mucus Present /lpf Imaging Data Attestation: I personally reviewed and interpreted this imaging study as follows: My impression: Impressions Chest X-Ray 04/24/25 16:21 IMPRESSION: Edema/infection overlying chronic bibasilar interstitial disease. Chest/Abdomen/Pelvis CTA 04/24/25 20:32 IMPRESSION: Ectasia of the ascending aorta measuring up to 4.2 cm. 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 Patulous, fluid-filled esophagus. Possible liver cirrhosis. 9 mm pancreatic tail cyst, recommend follow-up in 2 years. Fusiform infrarenal abdominal aortic aneurysm measuring up to 4.1 cm, with small dissection flap, unchanged. Recommend follow-up in one year. Severe left renal artery origin stenosis. 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 Discharge Plan Discharge Clinical Impression: Orthostatic hypotension, Acute kidney injury superimposed on stage 3a chronic kidney disease, Hypoalbuminemia due to protein-calorie malnutrition Patient Disposition: Still a Patient Condition: Stable
[2025-04-24 22:20] LABS: Add Urine Microscopic? YES; Appearance Urine Cloudy (Clear); Glucose Urine UA Negative (Negative); Leukocyte Esterase Ur Trace LEU/UL (Negative); Need Manual Microscopic Reviewed; Nitrate Urine Negative (Negative); Specific Grav Ur 1.019 (1.001-1.035)
[2025-04-25] VITALS (24 sets, daily range): BP systolic 89–114; BP diastolic 48–67; PULSE 81–109; RESP 12–35; TEMP 36.1–36.8; O2SAT 96–100; BMI 23.8
--- NOTE | 2025-04-25 00:33 | ECG_ITS ---
Test Date: 2025-04-25 00:35:46 Measurements Intervals [place] Rate: 91 P: 27 AR: 209 QRS: 52 QRSD: 102 T: 18 QT: 364 QTc: 449 Interpretive Statements SINUS RHYTHM Compared to ECG 04/24/2025 16:15:40 First degree AV block no longer present Myocardial infarct finding no longer present Electronically Signed On 04-25-2025 13:47:47 CDT by Abel Mejia M.D.
[2025-04-25 01:05] LABS: Troponin I < 0.012 ng/mL (0.000-0.034)
[2025-04-25] MEDS: ALBUMIN HUMAN 25% 25 GM/100 ML 100 ML IVPB (02:07)
[2025-04-25] MEDS: LACTATED RINGERS 1,000 ML 125 ML IV CONT ×3 (03:52→20:16)
[2025-04-25] MEDS: ACETAMINOPHEN 325 MG TABLET 650 MG PO (03:53)
--- NOTE | 2025-04-25 04:30 | P.HP_ITS ---
H&P: HPI History of Present Illness Date/Time: 04/25/25 04:30 Chief Complaint: Feeling weak, low blood pressure Narrative: 75-year-old male with a past medical history grade 1 diastolic dysfunction, coronary artery disease, essential hypertension, obstructive sleep apnea, chronic kidney disease, hypothyroidism, BPH and diet-controlled diabetes mellitus who presented to the ER from home via EMS due to generalized weakness and low blood pressures. The patient gave me permission to discuss his care with his daughter who was a nurse at her facility. His daughter reports that the patient has seemed intermittently confused on and off for the last week. The patient smoked marijuana heavily frequently until Saturday at which time he quit smoking altogether. He quit smoking as he was told in the past that it could be leading to his frequent nausea and vomiting. He reports that since he stopped smoking the marijuana his dyspepsia, ?sulfur burps?, nausea and vomiting have improved significantly. But for the past few days he has become weak. He reports that when he goes from lying to sitting he will feel ?dizzy?. He denies the room actually spinning but is states that 8 feels a general heaviness move over his body. This sensation will move down his shoulders into his chest. The symptoms usually go away after he sits there for minute or so but then when he gets a few feet away from the bed when he is walking the symptoms will recur. He was recently started on Norvasc and losartan due to a CT finding of a aortic aneurysm. The patient had not been having symptoms of orthostatic hypotension in quite a long time until he was started on these medications. In the ER patient did have significant jump in his heart rate and significant drop in his blood pressure with position changes despite receiving 3 L in fluid bolus. EMS reported the patient's initial blood pressures in the field were 60s over 40s and improved to 80s over 50s by the time they were in route. His blood pressures on arrival to the ER were in the 90 systolic but he did drop into the 70s and 80s with position changes. He denies any chest pain or shortness of breath. He has only had 1 episode of nausea and vomiting since he stopped smoking marijuana. He denies any lower extremity edema. His daughter reports the patient used to be obese and had lost a significant amount of weight over the last 2 years. But patient reports that his weight has been stable in the last couple of months. His weight last month was recorded somewhere between 74 and 78 kg depending on the visit. His weight as today is 75.5 kg. He denies any hematochezia or melena. He has intermittent weak urine stream. He is on multiple medications for BPH and urge urinary incontinence. He denies any dysuria or hematuria. He and his daughter reports that the patient followed up with his psychiatrist recently and that the patient has been decreasing his duloxetine. His duloxetine dose was recently decreased from 90 mg daily down to 60 for the last 3 or 4 days. The patient also mentions that he is supposed to start titrating his lamotrigine down in the near future. The patient reports he is still having some tightness in his neck and shoulders but this only started after he arrived to the hospital. He thinks that may be due to the pillow that he is using here at the hospital. He reports the discomfort is mild. But it is not improved even with Tylenol. The patient daughter reports that the patient does not drink much in the way of fluids. The patient states that he drinks mostly Coca-Cola. When asked about what other substances that he could drink he to provide more hydration because he does not like water he asked if he could drink tea or coffee. Review of Systems 2 Review of Systems: 12 systems were reviewed with pertinent positives and negatives per HPI. Except as documented in the HPI, all other systems were reviewed and are negative. COUNTS INCLUDE 234 BEDS AT THE [facility] Past Medical History Medical History (Updated 04/25/25 @ 07:36 by Kia Stevens DO) Diabetic peripheral neuropathy Diet-controlled diabetes mellitus Aortic aneurysm Diastolic dysfunction History of myocardial infarct at age less than 60 years 41yo, denies stent Hypothyroidism BPH (benign prostatic hyperplasia) Presumed as the patient is on terazosin and finasteride Carpal tunnel syndrome, bilateral CKD (chronic kidney disease) stage 3, GFR 30-59 ml/min Morbid obesity Patient used to weigh 127 kg in 2019 down to 87 kg current 03/2024 MARLENY (obstructive sleep apnea) Noncompliant with CPAP Hypertension Hyperlipidemia CAD (coronary artery disease) Surgical History Surgical History S/P CABG x 4 Family History Family History Daughter No problems noted. Mother Acute myocardial infarction Uterine cancer Father Colon cancer Social History Social History (Updated 04/25/25 @ 04:36 by Kia Stevens DO) Social History: Patient lives with his of approximately 42 years. He used to smoke 2.5 packs of cigarettes per day from the time he was teenager until 2019. He denies any history of heavy alcohol use. He does use marijuana on a daily basis until the April. Code status: Full code Surrogate decision maker: Kia (daughter) Smoking packs per day: 2.5 Smoking cigarettes per day: 50.0 Years smoked: 20 Smoking pack-years: 50.00 Smoking status: Former smoker Tobacco type: cigarettes Second hand tobacco smoke exposure: Yes Smoking end date: 10/21/22 Additional smoking assessment comments: quit in 1998 Alcohol intake: never Drinks per week: 1 Substance use: current Substance use type: marijuana Other substance usage details: daily marijuana Last use: 03/29/24 Do You Feel Safe in your Home?: Yes Lack of Transportation: No Lack of Food: Never True Current Housing: I Have Housing Concerned About Future Housing: No Difficulty Paying Gas/Electric Bills: No Difficulty Paying for Meds: No Currently Unemployed: No Education: Bachelor's Degree Difficulty w/ Childcare or Family Care: No Spiritual care concerns: No Meds Home Medications and Allergies Home Medications ?Medication ?Instructions ?Recorded ?Confirmed ?Type atorvastatin 80 mg tablet 40 mg PO HS 08/03/20 04/25/25 History bupropion HCl 150 mg tablet,12 hr 150 mg PO DAILY 08/03/20 04/25/25 History sustained-release duloxetine 60 mg capsule,delayed 60 mg PO DAILY 08/03/20 04/25/25 History release finasteride 5 mg tablet 5 mg PO DAILY 08/03/20 04/25/25 History nitroglycerin 0.4 mg sublingual 0.4 mg sublingual Q5M PRN Chest 08/03/20 04/25/25 History tablet Pain terazosin 5 mg tablet 5 mg PO HS 08/03/20 04/25/25 History hydroxyzine HCl 10 mg tablet 50 mg PO HS 03/31/24 04/25/25 History levothyroxine 50 mcg tablet 50 mcg PO DAILY 03/31/24 04/25/25 History (Synthroid) methocarbamol 500 mg tablet 500 mg PO TID PRN Muscle Pain 03/31/24 04/25/25 History mirabegron 50 mg tablet,extended 50 mg PO DAILY 03/31/24 04/25/25 History release 24 hr sodium bicarbonate 650 mg tablet 650 mg PO HS 03/31/24 04/25/25 History amlodipine 5 mg tablet (Norvasc) 5 mg PO DAILY #30 tabs 03/29/25 04/25/25 Rx losartan 25 mg tablet 25 mg PO DAILY #30 tabs 03/29/25 04/25/25 Rx biotin 10,000 mcg capsule 10,000 mcg PO HS 04/25/25 04/25/25 History calcium carbonate (Tums) 650 mg PO DAILY 04/25/25 04/25/25 History cholecalciferol (vitamin D3) 125 125 mcg PO HS 04/25/25 04/25/25 History mcg (5,000 unit) tablet (Vitamin D3) famotidine 40 mg tablet 40 mg PO DAILY 04/25/25 04/25/25 History ferrous sulfate 325 mg (65 mg 325 mg PO HS 04/25/25 04/25/25 History iron) tablet (Feosol) gabapentin 600 mg tablet 600 mg PO DAILY 04/25/25 04/25/25 History lactobacillus combination no.4 3 3,000 mmu cells PO HS 04/25/25 04/25/25 History billion cell capsule (Probiotic) lamotrigine 25 mg tablet (Lamictal) 50 mg PO BID 04/25/25 04/25/25 History mecobalamin (vitamin B12) 2,500 2,500 mcg PO .M,W,F 04/25/25 04/25/25 History mcg chewable tablet stovfrhc-oqr-opuks 120 mcg-lutein 1 tablet PO DAILY 04/25/25 04/25/25 History 150 mcg-herb 50 mg chewable tablet (Alive Men's 50 Plus Multivitamin) omega 3,6,9-borage seed 2 cap PO DAILY 04/25/25 04/25/25 History oil-flaxseed oil-fish oil 1,233 mg capsule saw palmetto 500 mg capsule 500 mg PO HS 04/25/25 04/25/25 History tramadol 50 mg tablet 50 mg PO Q8H PRN pain 04/25/25 04/25/25 History trospium 60 mg capsule,extended 60 mg PO DAILY 04/25/25 04/25/25 History release 24 hr Allergies Allergy/AdvReac Type Severity Reaction Status Date / Time niacin AdvReac Intermediate Other Verified 04/25/25 04:25 isosorbide dinitrate AdvReac Intermediate Headache Uncoded 04/25/25 04:25 Vital Signs Vital Signs - 24 hr 04/24/25 15:30 04/24/25 16:36 04/24/25 18:45 Temperature 98.4 F Pulse Rate 95 95 93 Respiratory Rate 18 17 17 Blood Pressure 99/64 L 99/58 L 114/63 Pulse Oximetry 95 97 100 Oxygen Delivery Room Air 04/24/25 20:58 04/24/25 21:03 04/24/25 22:07 Temperature Pulse Rate 102 H 104 H 105 H Respiratory Rate 16 22 H 20 Blood Pressure Pulse Oximetry 95 95 Oxygen Delivery 04/24/25 22:09 04/24/25 22:11 04/24/25 22:11 Temperature Pulse Rate 106 H 96 89 Respiratory Rate 20 18 17 Blood Pressure 103/64 70/58 L 87/49 L Pulse Oximetry 97 86 L 88 L Oxygen Delivery 04/24/25 22:15 04/24/25 22:17 04/24/25 22:18 Temperature Pulse Rate 97 98 98 Respiratory Rate 21 H 20 18 Blood Pressure 109/68 Pulse Oximetry 97 99 96 Oxygen Delivery 04/24/25 22:30 04/24/25 22:31 04/24/25 22:46 Temperature Pulse Rate 95 94 92 Respiratory Rate 21 H 24 H 15 Blood Pressure 103/60 Pulse Oximetry 96 97 97 Oxygen Delivery 04/24/25 23:00 04/24/25 23:01 04/24/25 23:15 Temperature Pulse Rate 93 93 94 Respiratory Rate 15 15 18 Blood Pressure 114/65 Pulse Oximetry 97 97 96 Oxygen Delivery 04/24/25 23:30 04/24/25 23:31 04/24/25 23:52 Temperature Pulse Rate 90 90 92 Respiratory Rate 17 17 15 Blood Pressure 110/63 Pulse Oximetry 96 97 96 Oxygen Delivery 04/25/25 00:00 04/25/25 00:01 04/25/25 00:15 Temperature Pulse Rate 89 90 91 Respiratory Rate 14 16 35 H Blood Pressure 114/61 Pulse Oximetry 96 96 Oxygen Delivery 04/25/25 00:24 04/25/25 00:25 04/25/25 00:27 Temperature Pulse Rate 89 101 H 109 H Respiratory Rate Blood Pressure 105/61 106/65 99/56 L Pulse Oximetry Oxygen Delivery 04/25/25 01:04 04/25/25 01:25 04/25/25 01:30 Temperature Pulse Rate 86 85 87 Respiratory Rate 17 12 15 Blood Pressure Pulse Oximetry 96 98 100 Oxygen Delivery 04/25/25 01:31 04/25/25 01:32 04/25/25 02:59 Temperature Pulse Rate 87 86 82 Respiratory Rate 14 16 20 Blood Pressure 92/59 L 107/61 107/61 Pulse Oximetry 99 96 100 Oxygen Delivery 04/25/25 03:02 Temperature Pulse Rate 84 Respiratory Rate 17 Blood Pressure 101/67 Pulse Oximetry 96 Oxygen Delivery Exam 2 Narrative: Weight 75.5 kg BMI 23.9 Const: Other: No acute distress, well-developed well-nourished HENMT: Other: Mucous membranes are tacky, no oral pharyngeal erythema Eyes: Other: Pupils are equal and reactive, positive conjunctival pallor, scleral icterus Neck: Other: No JVD, no lymphadenopathy Resp: Other: Clear to auscultation bilaterally, no increased work of breathing Cardio: Other: Regular rate, regular rhythm, 2+ bilateral radial pedal pulses GI: Other: Soft, nontender, nondistended, positive bowel sounds Skin: Other: Generalized pallor, non jaundice, scattered bruising to that dorsum of the arms and hands Neuro: Other: Alert oriented x4, speech is clear, no facial asymmetry, moves all extremities equally, no localizing neurologic deficits noted during the course of conversation Extrem: Other: No clubbing, cyanosis or edema, 5/5 strength bilateral upper and lower extremities extremities Psych: Other: Appropriate mood and affect, pleasant and cooperative, judgment and insight fair H&P: Results Labs Labs: Laboratory Tests 04/24/25 16:22 04/24/25 16:22 04/24/25 04/24/25 04/24/25 16:22 19:40 21:36 WBC 4.9 RBC 3.54 L Hgb 10.2 L Hct 31.0 L MCV 87.6 MCH 28.8 MCHC 32.9 RDW 14.6 H Plt Count 131 L MPV 9.0 Immature Gran % (Auto) 0.6 H Neut % (Auto) 65.8 Lymph % (Auto) 25.3 [place] % (Auto) 6.3 Eos % (Auto) 1.6 Baso % (Auto) 0.4 Lymph # (Auto) 1.24 [place] # (Auto) 0.3 Eos # (Auto) 0.1 Baso # (Auto) 0.0 Abs Immat Gran (auto) 0.03 Absolute Neuts (auto) 3.2 Absolute Nucleated RBC 0.000 Nucleated RBC % 0.0 Sodium 138 Potassium 3.5 Chloride 107 Carbon Dioxide 25 Anion Gap 6 BUN 40 H D Creatinine 2.09 H Estim Creat Clear Calc 27 Estimated GFR 31 L Glucose 139 H Lactic Acid 1.4 Calcium 8.5 Total Bilirubin 0.5 AST 27 ALT 11 Alkaline Phosphatase 88 Troponin I < 0.012 Total Protein 5.6 L Albumin 3.1 L Urine Color Yellow Urine Appearance Cloudy H Urine pH 5.0 Ur Specific [employer] 1.019 Urine Protein Negative Urine Glucose (UA) Negative Urine Ketones Trace H Ur Blood (Man) Negative Urine Nitrate Negative Urine Bilirubin Negative Urine Urobilinogen 0.2 Add Ur Microanalysis Reviewed Leukocyte Esterase Rfl Trace H Urine RBC 6-10 H Urine WBC 0-5 Ur Squamous Epith Cells Moderate Triple Phos Crystals Present H Urine Bacteria None seen Urine Casts 3-5 Urine Mucus Present Impressions Chest X-Ray 04/24/25 16:21 IMPRESSION: Edema/infection overlying chronic bibasilar interstitial disease. Chest/Abdomen/Pelvis CTA 04/24/25 20:32 IMPRESSION: Ectasia of the ascending aorta measuring up to 4.2 cm. 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 Patulous, fluid-filled esophagus. Possible liver cirrhosis. 9 mm pancreatic tail cyst, recommend follow-up in 2 years. Fusiform infrarenal abdominal aortic aneurysm measuring up to 4.1 cm, with small dissection flap, unchanged. Recommend follow-up in one year. Severe left renal artery origin stenosis. 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 EKG: First-degree AV block rate of 91 possible inferior NH QTC 468 All imaging and EKGs personally reviewed and interpreted. And unless stated otherwise agree with radiologic and cardiology interpretation. Assessment and Plan Assessment and plan (1) Orthostatic hypotension: Code(s): I95.1 - Orthostatic hypotension Status: Acute (2) Acute kidney injury superimposed on stage 3a chronic kidney disease: Code(s): N17.9 - Acute kidney failure, unspecified; N18.31 - Chronic kidney disease, stage 3a Status: Acute (3) Hypoalbuminemia due to protein-calorie malnutrition: Code(s): E88.09 - Other disorders of plasma-protein metabolism, not elsewhere classified; E46 - Unspecified protein-calorie malnutrition Status: Acute (4) BPH (benign prostatic hyperplasia): Qualifiers: Lower urinary tract symptom detail: weak urinary stream Lower urinary tract symptom presence: symptoms present Qualified Code(s): N40.1 - Benign prostatic hyperplasia with lower urinary tract symptoms; R39.12 - Poor urinary stream Code(s): N40.0 - Benign prostatic hyperplasia without lower urinary tract symptoms Status: Acute Plan Patient symptoms are consistent with orthostatic hypotension. Orthostatic hypotension and orthostatic tachycardia noted in the ER. Patient was rehydrated with 3 L isotonic fluids. Maintenance fluids have been continued. Will repeat orthostatic vital signs Q shift. The patient was also recently started on 2 new antihypertensives with amlodipine and losartan within the last 2 and half weeks. I think a component of the patient's hypotension is due to dehydration with decreased fluid intake and high caffeine intake and hypoalbuminemia. This is likely exacerbated by the patient's recent initiation of antihypertensive therapy. Given the patient also has acute kidney injury on chronic kidney disease will hold patient's losartan. Will continue Norvasc. Will also hold the patient's terazosin. The patient's Cymbalta is also a drug that could be exacerbating his orthostatic symptoms. He is already in the process of being weaned off of the Cymbalta. We do not want to acutely withdrawal medication as a could cause increased side effects. Patient is also on a couple of other medications I could exacerbate orthostatic hypotension but will start with these changes and see what the effect is. Will repeat CBC and electrolyte panel in a.m. will monitor I&O's closely. Patient has been admitted as observation status. MEDICAL DECISION MAKING NARRATIVE -Spoke with the ED provider in detail regarding patient's evaluation, workup and management -Patient seen and examined at bedside -Collaborated with patient's nurse at the bedside in detail and addressed all concerns -Labs, electrolytes, radiology, investigations and test results reviewed -ED/Consult/Nursing/Ancilliary notes on the chart reviewed and appreciated -Spoke with patient/family at the bedside and answered all questions. Quality VTE Prophylaxis VTE prophylaxis: mechanical ordered (SCDs) Hospitalist MIPS Advance Care Plan I have confirmed that the patient's Advanced Care Plan is present, code status is documented, or surrogate decision maker is listed in patient medical record.: Yes Medication Reconciliation I have utilized all available resources to obtain, update and review the patients current medications (includes all prescriptions, OTC, herbals, cannabis, and nutritional supplements).: Yes
--- NOTE | 2025-04-25 04:33 | PC.NURSE ---
patient arrived on 3medsurg at 0320
[2025-04-25 08:25] LABS: Hematocrit 28.6 % (42.0-52.0); Hemoglobin 9.5 g/dL (14.0-18.0); Mean Corpuscular HGB Conc 33.2 g/dl (32-36); Mean Corpuscular Hemoglobin 28.9 pg (26-34); Mean Corpuscular Volume 86.9 fl (80-100); Platelet Count Result 119 k/mm3 (150-375); Red Blood Count 3.29 M/mm3 (4.6-6.20); White Blood Count 9.2 K/mm3 (4.5-10.0)
[2025-04-25 08:37] LABS: Anion Gap 5 mmol/L (4-12); Blood Urea Nitrogen 29 mg/dL (9-20); Calcium 8.7 mg/dL (8.4-10.2); Carbon Dioxide 26 mmol/L (22-30); Chloride 106 mmol/L (98-107); Estimated CRCL calculation 38 ml/min; Estimated Glomerular Filt Rate 44; Glucose 89 mg/dL (65-110); Potassium 3.9 mmol/L (3.4-5.0); Sodium 137 mmol/L (137-145)
[2025-04-25] MEDS: CALCIUM CARBONATE (TUMS) 500 MG (200 MG ELEMENTAL) 600 MG BY MOUTH (09:34)
[2025-04-25] MEDS: lamoTRIgine 50 MG TABLET PO ×2 (09:35→16:58)
[2025-04-25] MEDS: MULTIVITAMINS /C LUTEIN (CENTRUM SILVER) TABLET *BKC 1 TAB PO (09:35)
[2025-04-25] MEDS: GABAPENTIN 300 MG CAPSULE 600 MG PO (09:35)
[2025-04-25] MEDS: buPROPion HCL SR (12 HR) 150 MG TAB PO (09:35)
[2025-04-25] MEDS: FAMOTIDINE 20 MG TABLET 40 MG PO (09:35)
[2025-04-25] MEDS: MIRABEGRON 50 MG ER TABLET PO (09:35)
[2025-04-25] MEDS: DULoxetine HCL 60 MG CAPSULE.DR PO (09:35)
[2025-04-25] MEDS: FINASTERIDE 5 MG TABLET PO (09:35)
[2025-04-25] MEDS: OMEGA 3 POLYUNSAT FATTY ACIDS 1 GM CAP 2 GM PO (09:35)
--- NOTE | 2025-04-25 13:43 | PM.EVENT ---
Event Note Event Note Event Note: patient is a 75-year-old male who was admitted for further evaluation treatment of orthostatic hypotension and acute kidney injury. Patient had been seen assessed by previous provider same day follow-up assessment patient in no acute distress appears to be secondary to dehydration and new increased to BP medications. Patient did report he had mid abdominal pain dull and achy and intermittently, denied any chest pain, shortness a breath, nausea, vomiting. will order lipase insert a PPI. BP had improved with IV fluid hydration. And acute kidney injury improving no difficulty with urination will continue with IV fluids overnight recommended does have does with activity and to continue to wean off his Cymbalta outpatient.
[2025-04-25 16:09] LABS: Lipase 11 U/L (23-300)
[2025-04-25] MEDS: SODIUM BICARBONATE TAB 650 MG TABLET PO (20:17)
[2025-04-25] MEDS: ATORVASTATIN 40 MG TABLET PO (20:17)
[2025-04-25] MEDS: FERROUS SULFATE 325 MG TABLET DR BY MOUTH (20:17)
[2025-04-25] MEDS: CHOLECALCIFEROL (VITAMIN D3) 125 MCG (5,000 UNITS) TABLET PO (20:18)
[2025-04-25] MEDS: traMADol HCL (*CRX) 50 MG TABLET PO (20:19)
[2025-04-26 00:04] VITALS: PULSE 82
[2025-04-26 00:45] VITALS: BP 105/67; PULSE 86; RESP 16; TEMP 37.2; O2SAT 97
[2025-04-26 04:00] VITALS: PULSE 81
[2025-04-26] MEDS: LACTATED RINGERS 1,000 ML 125 ML IV CONT ×2 (04:09→12:11)
[2025-04-26] MEDS: LEVOTHYROXINE SODIUM 50 MCG TABLET PO (05:39)
[2025-04-26 06:00] VITALS: BP 105/61; PULSE 83; RESP 20; TEMP 36.9; O2SAT 97
[2025-04-26 08:00] VITALS: PULSE 87
[2025-04-26] MEDS: OMEGA 3 POLYUNSAT FATTY ACIDS 1 GM CAP 2 GM PO (09:16)
[2025-04-26] MEDS: MULTIVITAMINS /C LUTEIN (CENTRUM SILVER) TABLET *BKC 1 TAB PO (09:16)
[2025-04-26] MEDS: GABAPENTIN 300 MG CAPSULE 600 MG PO (09:16)
[2025-04-26] MEDS: DULoxetine HCL 60 MG CAPSULE.DR PO (09:16)
[2025-04-26] MEDS: CALCIUM CARBONATE (TUMS) 500 MG (200 MG ELEMENTAL) 600 MG BY MOUTH (09:16)
[2025-04-26] MEDS: MIRABEGRON 50 MG ER TABLET PO (09:16)
[2025-04-26] MEDS: lamoTRIgine 50 MG TABLET PO (09:16)
[2025-04-26] MEDS: buPROPion HCL SR (12 HR) 150 MG TAB PO (09:16)
[2025-04-26] MEDS: FINASTERIDE 5 MG TABLET PO (09:17)
[2025-04-26] MEDS: PANTOPRAZOLE 40 MG TABLET PO (09:17)
[2025-04-26] MEDS: FAMOTIDINE 20 MG TABLET 40 MG PO (09:17)
[2025-04-26] MEDS: CYANOCOBALAMIN 500 MCG TABLET 2500 MCG PO (09:19)
--- NOTE | 2025-04-26 11:25 | P.DS_ITS ---
DS: Admitting Diagnosis Discharge Date 04/26/2025 Admitting Diagnosis hypotension/ dehydration DS: Discharge Diagnosis Discharge Diagnosis (1) Orthostatic hypotension: Code(s): I95.1 - Orthostatic hypotension Status: Acute (2) Acute kidney injury superimposed on stage 3a chronic kidney disease: Code(s): N17.9 - Acute kidney failure, unspecified; N18.31 - Chronic kidney disease, stage 3a Status: Acute (3) Hypoalbuminemia due to protein-calorie malnutrition: Code(s): E88.09 - Other disorders of plasma-protein metabolism, not elsewhere classified; E46 - Unspecified protein-calorie malnutrition Status: Acute (4) BPH (benign prostatic hyperplasia): Qualifiers: Lower urinary tract symptom detail: weak urinary stream Lower urinary tract symptom presence: symptoms present Qualified Code(s): N40.1 - Benign prostatic hyperplasia with lower urinary tract symptoms; R39.12 - Poor urinary stream Code(s): N40.0 - Benign prostatic hyperplasia without lower urinary tract symptoms Status: Acute DS: Summary Hospital Course Reason for hospitalization: Hypotension/ dehydration Hospital Course: Patient was a 75-year-old male with a past medical history grade 1 diastolic dysfunction, coronary artery disease, essential hypertension, obstructive sleep apnea, chronic kidney disease, hypothyroidism, BPH and diet-controlled diabetes mellitus who presented to the ER from home via EMS due to generalized weakness a nd low blood pressures. He was was admitted for further evaluation treatment of orthostatic hypotension and acute kidney injury. Patient had been seen assessed by previous provider same day follow-up assessment patient in no acute distress appears to be secondary to dehydration and new increased to BP medications. Patient did report he had mid abdominal pain dull and achy and intermittently, denied any chest pain, shortness a breath, nausea, vomiting. will order lipase insert a PPI. BP had improved with IV fluid hydration. Patient had repeat orthostatic vital signs Q shift with mild drop in BP. The patient was also recently started on 2 new antihypertensives with amlodipine and losartan within the last 2 and half weeks as well as changed to Terazosin. It appeared components of the patient's hypotension was due to dehydration with decreased fluid intake and high caffeine intake and hypoalbuminemia. This is likely exacerbated by the patient's recent initiation of antihypertensive therapy. Given the patient also has acute kidney injury on chronic kidney disease I held patient's losartan, but resumed his amlodipine when BP allows. patient's terazosin was discontinued altogether recommended after discharge as well. The patient's Cymbalta is also a drug that could be exacerbating his orthostatic symptoms. He is already in the process of being weaned off of the Cymbalta. patient's BP slowly improved with IV hydration he denied any chest pain, shortness a breath, dizziness or visual changes. I did speak to patient regarding his CT findings and [address] scan one is a Ascending aorta measuring 4.2, Abdominal Aortic measuring 4.1 and Right iliac artery aneurysm measuring 2.0 he is currently in the process of referral to vascular surgery at [facility] I also encouraged him to follow-up get a referral for structures assembler for further evaluation of patient's left renal artery stenosis. patient seen and assessed at time of discharge in no acute distress BP stable discontinued patient's terazosin and losartan recommended he continue to take his amlodipine and monitor BP at home and referrals as stated before. Patient ambulatory and discharged to home Status at Discharge Functional status at discharge: independent ambulation Overall status at discharge: patient is back to baseline Time Spent with Patient Time attestation: Total time spent providing and/or coordinating discharge services: Time spent: Greater than 30 minutes Exam Narrative: Weight 75.5 kg BMI 23.9 Const: Other: No acute distress, well-developed well-nourished HENMT: Other: Mucous membranes are tacky, no oral pharyngeal erythema Eyes: Other: Pupils are equal and reactive, positive conjunctival pallor, scleral icterus Neck: Other: No JVD, no lymphadenopathy Resp: Other: Clear to auscultation bilaterally, no increased work of breathing Cardio: Other: Regular rate, regular rhythm, 2+ bilateral radial pedal pulses GI: Other: Soft, nontender, nondistended, positive bowel sounds Skin: Other: Generalized pallor, non jaundice, scattered bruising to that dorsum of the arms and hands Neuro: Other: Alert oriented x4, speech is clear, no facial asymmetry, moves all extremities equally, no localizing neurologic deficits noted during the course of conversation Extrem: Other: No clubbing, cyanosis or edema, 5/5 strength bilateral upper and lower extremities extremities Psych: Other: Appropriate mood and affect, pleasant and cooperative, judgment and insight fair DS: Data Data Completed and Pending Labs on day of discharge: Labs from last 24 hours 04/25/25 08:16 Lipase 11 L Imaging Radiologist's impression: EXAMINATION: CTA chest abdomen pelvis DATE: 04/24/2025 20:28 INDICATION: hypotension, AAA/TAA history . TECHNIQUE: Computed tomography angiography of the chest, abdomen, and pelvis was performed with 100 mL Omnipaque-350 intravenous contrast in the arterial phase. Automated exposure control and iterative reconstruction technique were employed. The dose-length product was 583.12 mGy-cm. COMPARISON: None FINDINGS: CHEST: Thoracic aorta: The ascending aorta is dilated to 4.2 cm. No dissection. Mild arch calcification. Lung parenchyma and airways: No pneumothorax or focal consolidation. Peripheral and basilar reticular interstitial changes with early honeycombing. Thoracic inlet, axillae and chest wall: No thyroid or soft tissue mass. No axillary lymphadenopathy. Mediastinum: Patulous fluid esophagus. Dilated central pulmonary arteries as can be seen with pulmonary arterial hypertension Heart and pericardium: Normal heart size. No pericardial effusion. Coronary artery calcifications: Moderate. Pleura: No effusion or mass. Thoracic bones: No acute osseous finding in the chest. ABDOMEN/PELVIS: Liver: Somewhat nodular appearing liver. Biliary/Gallbladder: Gallbladder is normal. No bile duct dilation. Pancreas: Atrophy. 9 mm pancreatic tail cyst Spleen: Normal. Adrenals:No mass. Kidneys: No suspicious mass, obstructing stone, or hydronephrosis. GI tract: No small or large bowel dilation. Normal appendix. Mesentery/Peritoneum: No ascites, mass, or free air. Retroperitoneum: No mass Atherosclerotic calcifications of intra-abdominal hadley rial vessels. Fusiform dilation of the infrarenal abdominal aorta, measuring up to 4.1 cm. Calcified and noncalcified plaque in the abdominal aorta. Small dissection flap within the aneurysm, unchanged. Severe stenosis of the origin of the left renal artery. Mild dilation of the right common femoral artery measuring 2.0 cm Pelvis: Distended urinary bladder without wall thickening. Partial obscuration of pelvic contents by metal artifact. Soft Tissues: Soft tissues and body wall unremarkable. Partially visualized, uncomplicated appearing left hip arthroplasty hardware. Abdominopelvic bones: No acute osseous finding in the abdomen/pelvis. IMPRESSION: Ectasia of the ascending aorta measuring up to 4.2 cm. 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 Patulous, fluid-filled esophagus. Possible liver cirrhosis. 9 mm pancreatic tail cyst, recommend follow-up in 2 years. Fusiform infrarenal abdominal aortic aneurysm measuring up to 4.1 cm, with small dissection flap, unchanged. Recommend follow-up in one year. Severe left renal artery origin stenosis. 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 Discharge Plan Discharge Attending physician on discharge: River Yang Consulting providers: Kirstie Sparks; Abel Mejia; Sigifredo Shaikh Discharging Clinician: Kirstie Sparks Anticipated Discharge Date/Time: 04/26/25 11:17 Patient Disposition: Home Activity: as tolerated Diet: heart healthy Discharge Instructions: 1). Hypotension: * You experienced orthostatic hypotension secondary to your new medications and dehydration * I have stopped your terazosin * Rajesh Hose/compression stockings with ambulation * I encourage you to increase your oral hydration and avoid the heat * I have held your Losartan monitor BP at home, I would speak with your primary regarding blood pressure medication adjustments due to your CKD and renal function Losartan could led to hyperkalemia (high potassium levels) 2). Aneurysm * You have three separate aneurysm one is a Ascending aorta measuring 4.2, Abdominal Aortic measuring 4.1 and Right iliac artery aneurysm measuring 2.0 * I recommend referral to a vascular surgeon for close monitoring * I recommend referral to cardiology as well for left renal artery stenosis evaluation How can you care for yourself at home? ? Keep track of any new symptoms or changes in your symptoms. ? Rest until you feel better. ? Be safe with medicines. Take your medicines exactly as prescribed. Call your doctor if you think you are having a problem with your medicine. ? Do not drive after taking a prescription pain medicine. ? Ensure to follow-up with primary care physician as indicated and provide updated medication list provided to you at discharge. When should you call for help? Call 911 anytime you think you may need emergency care. For example, call if: ? You passed out (lost consciousness). Call your doctor now or seek immediate medical care if: ? You have new symptoms like fever, difficulty breathing, Chest pain, vomiting, or rash. ? You have new or different pain. ? You are confused and are having trouble thinking clearly. ? Your symptoms are getting worse. Watch closely for changes in your health, and be sure to contact your doctor if: ? You do not get better as expected. Patient Instructions: Antibiotic Form, Nonruptured Abdominal Aortic Aneurysm (DC), Hypotension (DC) Patient Language: Telugu Stand Alone Forms: General Discharge Information Follow-up/Referrals: [facility]SAMY [Primary Care Provider] - 2 Weeks (Needs referral to Cardiology and vascular surgeon) Discharge Medications: Continued bupropion HCl 150 mg Tablet Sustained-Release 12 Hr 150 mg PO DAILY atorvastatin 80 mg Tablet 40 mg PO HS nitroglycerin 0.4 mg Tablet, Sublingual 0.4 mg SUBLINGUAL Q5M PRN (Reason: Chest Pain) finasteride 5 mg Tablet 5 mg PO DAILY duloxetine 60 mg Capsule,Delayed Release(Dr/Ec) 60 mg PO DAILY methocarbamol 500 mg Tablet 500 mg PO TID PRN (Reason: Muscle Pain) sodium bicarbonate 650 mg Tablet 650 mg PO HS levothyroxine [Synthroid] 50 mcg Tablet 50 mcg PO DAILY mirabegron 50 mg Tablet Extended Release 24 Hr 50 mg PO DAILY hydroxyzine HCl 10 mg Tablet 50 mg PO HS amlodipine [Norvasc] 5 mg Tablet 5 mg PO DAILY Qty: 30 0RF mecobalamin (vitamin B12) 2,500 mcg tablet,chewable 2,500 mcg PO .M,W,F Patient Comments: TAKES SATURDAY, SATURDAY, AND SATURDAY tramadol 50 mg tablet 50 mg PO Q8H PRN (Reason: pain) calcium carbonate [Tums] 320 mg calcium (750 mg) tablet,chewable 650 mg PO DAILY trospium 60 mg capsule,extended release 24hr 60 mg PO DAILY Rx Instructions: must be taken on empty stomach at least 1 hour before a meal/food with water only Alive Men's 50 Plus Multivit 120 mcg-150 mcg -50 mg tablet,chewable 1 tablet PO DAILY cholecalciferol (vitamin D3) [Vitamin D3] 125 mcg (5,000 unit) tablet 125 mcg PO HS saw palmetto 500 mg capsule 500 mg PO HS Probiotic 3 billion cell capsule 3,000 mmu cells PO HS Rx Instructions: administer with a meal ferrous sulfate [Feosol] 325 mg (65 mg iron) tablet 325 mg PO HS biotin 10,000 mcg capsule 10,000 mcg PO HS lamotrigine [Lamictal] 25 mg tablet 50 mg PO BID gabapentin 600 mg tablet 600 mg PO DAILY omega 3,6,3-gtijwz-janm-fish 1,233 mg capsule 2 cap PO DAILY famotidine 40 mg tablet 40 mg PO DAILY Held losartan 25 mg Tablet 25 mg PO DAILY Qty: 30 0RF Hold Instructions: Resume on 05/07/25. Discontinued terazosin 5 mg Tablet 5 mg PO HS Date of admission: 04/25/25 01:59 Primary Care Provider: [facility]SAMY Admitting Provider: Kia Stevens Attending physician on admission: River Yang Condition: Stable Quality VTE Prophylaxis VTE prophylaxis: mechanical ordered (SCDs) -Patient's previous records reviewed on admission -ER notes reviewed in detail on admission -discussed all findings and current treatment plan with patient/Family/POA -Consultations reviewed for recommendations -Patient's disposition for safe discharge discussed with vocational case manager Dictation performed by [employer] direct speech recognition software, therefore floor manager variants and typographical errors may occur. Hospitalist MIPS Heart Failure (Exclusion) Patient has history of Heart Transplant or Left Ventricular Assistive Device?: No IF YES, STOP HERE Heart Failure (Qualifier) Patient has current or prior documentation of LVEF less than or equal to 40%, or mod/servere depressed LVSF?: No IF NO, STOP HERE
[2025-04-26 11:58] LABS: Hematocrit 29.0 % (42.0-52.0); Hemoglobin 9.5 g/dL (14.0-18.0); Mean Corpuscular HGB Conc 32.8 g/dl (32-36); Mean Corpuscular Hemoglobin 28.9 pg (26-34); Mean Corpuscular Volume 88.1 fl (80-100); Platelet Count Result 127 k/mm3 (150-375); Red Blood Count 3.29 M/mm3 (4.6-6.20); White Blood Count 7.1 K/mm3 (4.5-10.0)
[2025-04-26 12:00] VITALS: PULSE 82
[2025-04-26 12:10] LABS: Alanine Aminotransferase 8 U/L (6-50); Albumin Level 2.6 g/dL (3.5-5.1); Alkaline Phosphatase 72 U/L (38-126); Anion Gap 2 mmol/L (4-12); Aspartate Amino Transferase 21 U/L (17-59); Bilirubin,Total 0.6 mg/dL (0.2-1.3); Blood Urea Nitrogen 18 mg/dL (9-20); Calcium 8.7 mg/dL (8.4-10.2); Carbon Dioxide 28 mmol/L (22-30); Chloride 107 mmol/L (98-107); Estimated CRCL calculation 38 ml/min; Estimated Glomerular Filt Rate 44; Glucose 99 mg/dL (65-110); Magnesium 1.6 mg/dL (1.6-2.3); Potassium 3.8 mmol/L (3.4-5.0); Sodium 137 mmol/L (137-145); Total Protein 4.9 g/dL (6.3-8.2)
== END 2025-04-26 15:55 | disposition home or self-care (01) ==
LOC: ANHED 19:28 → ANH3MEDSUR 04-25 05:44
PROVIDERS: Emergency Medicine; Nurse Practitioner Family; Admitting Provider Internal Medicine; Emergency Provider Student in an Organized Health Care Education/Training Program; Visit Provider Internal Medicine
DX: I95.1 Orthostatic hypotension (principal); E11.42 Type 2 diabetes mellitus with diabetic polyneuropathy; E11.22 Type 2 diabetes mellitus with diabetic chronic kidney disease; I13.10 Hypertensive heart and chronic kidney disease without heart failure, with stage 1 through stage 4 chronic kidney disease, or unspecified chronic kidney disease; N18.31 Chronic kidney disease, stage 3a; N17.9 Acute kidney failure, unspecified; E88.09 Other disorders of plasma-protein metabolism, not elsewhere classified; E46 Unspecified protein-calorie malnutrition; Z68.23 Body mass index [BMI] 23.0-23.9, adult; N40.1 Benign prostatic hyperplasia with lower urinary tract symptoms; R39.12 Poor urinary stream; I71.21 Aneurysm of the ascending aorta, without rupture; I71.40 Abdominal aortic aneurysm, without rupture, unspecified; I72.3 Aneurysm of iliac artery; I70.1 Atherosclerosis of renal artery; I25.10 Atherosclerotic heart disease of native coronary artery without angina pectoris; I25.2 Old myocardial infarction; G47.33 Obstructive sleep apnea (adult) (pediatric); E78.5 Hyperlipidemia, unspecified; E03.9 Hypothyroidism, unspecified; G56.03 Carpal tunnel syndrome, bilateral upper limbs; F12.10 Cannabis abuse, uncomplicated; Z79.899 Other long term (current) drug therapy; Z87.891 Personal history of nicotine dependence; Z95.1 Presence of aortocoronary bypass graft
CPT/HCPCS: 36415; 71045; 71275; 74174; 80048; 80053; 81001; 83605; 83690; 83735; 84484; 85025; 85027; 93005; 96361; 96365; 96366; 99285; A9270; G0378; J7120; P9047; Q9967